=== PATIENT | male | born 1960 | race Caucasian/White ===

== ENCOUNTER → 2017-02-21 | Outpatient (CLI) | payer BC ==
[~2017-02-21] MED LIST: DYZ PO; LISI-725 PO
[2017-02-21 19:45] LABS: BLOOD UREA NITROGEN 20 mg/dl (7-18); BUN/CREATININE RATIO 16.4 (10-20); CALCIUM 8.9 mg/dl (8.5-10.1); CARBON DIOXIDE 27 mmol/L (21-32); CHLORIDE 107 mmol/L (98-107); GLUCOSE 116 mg/dl (70-99); POTASSIUM 3.6 mmol/L (3.5-5.1); SODIUM 142 mmol/L (136-145)
== END | disposition home or self-care (01) ==
LOC: C.LABSPEC 17:50
PROVIDERS: ATTEND Internal Medicine
DX: I10 Essential (primary) hypertension (principal)

== ENCOUNTER 2024-11-09 09:54 | Inpatient (IN) ==
[2024-11-09] MEDS: SODIUM CHLORIDE 0.9% 500 ML IV ONE (10:24)
--- NOTE | 2024-11-09 10:49 | XRay Report ---
XR chest 1V portable CLINICAL HISTORY: weakness COMPARISON STUDY: None FINDINGS: There is mild cardiomegaly without pulmonary vascular congestion. No effusion, consolidatio n, or pneumothorax. IMPRESSION: No acute findings. ACT 112: Negative or not required by law. Electronically signed by: Leonidas Gibson M.D. 11/09/2024 10:47 AM
[2024-11-09 11:02] LABS: Basophils # (auto) 0.04 K/uL (0.00-0.20); Basophils % (auto) 0.5 %; Eosinophils # (auto) 0.04 K/uL (0.00-0.50); Eosinophils % (auto) 0.5 %; Hematocrit (blood only) 29.2 % (42.0-52.0); Immature Granulocytes # (auto) 0.06 K/uL (0.01-0.20); Immature Granulocytes % (auto) 0.7 %; Lymphocytes % (auto) 11.7 %; Mean Corpuscular Hemoglobin 26.2 pg (25.0-34.0); Mean Corpuscular Hgb Conc 30.8 g/dL (32.0-36.0); Mean Corpuscular Volume 85.1 fL (80.0-100.0); Monocytes # (auto) 0.61 K/uL (0.11-0.59); Monocytes % (auto) 7.1 %; Neutrophils # (auto) 6.79 K/uL (1.40-6.50); Neutrophils % (auto) 79.5 %; Platelet Count 114 K/uL (130-400); RDW Coefficient of Variation 15.9 % (11.5-14.5); RDW Standard Deviation 48.7 fL (36.4-46.3); Red Blood Count 3.43 M/uL (4.70-6.10); White Blood Count 8.54 K/ul (4.8-10.8)
[2024-11-09] MEDS ORDERED: SODIUM CHLORIDE 0.9% 50 ML IV PRN ×3 (11:09→14:55)
[2024-11-09] MEDS ORDERED: SODIUM CHLORIDE 0.9% 100 ML IV PRN ×3 (11:09→14:55)
[2024-11-09 11:22] LABS: Albumin Globulin Ratio 1.2 (0.9-2); Albumin Level 3.2 gm/dl (3.4-5.0); BUN Creatinine Ratio 30.4 (10-20); Bilirubin,Total 1.7 mg/dl (0.2-1.0); Creatinine Clr Calc Pharmacy 67.6 ml/min; Globulin 2.6 gm/dl (2.5-4.0); Potassium 3.9 mmol/L (3.5-5.1); Total Protein 5.8 gm/dl (6.0-8.3)
[2024-11-09] MEDS: PANTOprazole 80 MG in DEXTROSE 5% 100 ML IV ONE (11:22)
[2024-11-09] MEDS: PANTOPRAZOLE BOLUS/DRIP IV STA (11:22)
[2024-11-09 11:36] LABS: Thyroid Stimulating Hormone 1.168 uIu/ml (0.300-4.500)
[2024-11-09] MEDS: PANTOprazole 40 MG in DEXTROSE 5% MINI-B 100 ML IV SCH (11:36)
[2024-11-09 11:37] LABS: Troponin I High Sensitivity 85.5 pg/ml (0-20)
[2024-11-09 11:54] LABS: Adenovirus PCR Not Detected (NotDetected); Bordetella parapertussis PCR Not Detected (NotDetected); Bordetella pertussis PCR Not Detected (NotDetected); Chlamydia pneumoniae PCR Not Detected (NotDetected); Coronavirus 229E PCR Not Detected (NotDetected); Coronavirus CoV-2 (COVID19)PCR Not Detected (NotDetected); Coronavirus HKU1 PCR Not Detected (NotDetected); Coronavirus NL63 PCR Not Detected (NotDetected); Coronavirus OC43PCR Not Detected (NotDetected); Human Metapneumovirus PCR Not Detected (NotDetected); Influenza A PCR Not Detected (NotDetected); Influenza B PCR Not Detected (NotDetected); Mycoplasma pneumoniae PCR Not Detected (NotDetected); Parainfluenza Virus 1 PCR Not Detected (NotDetected); Parainfluenza Virus 2 PCR Not Detected (NotDetected); Parainfluenza Virus 3 PCR Not Detected (NotDetected); Parainfluenza Virus 4 PCR Not Detected (NotDetected); Respiratory Syncytial VirusPCR Not Detected (NotDetected); Rhinovirus/Enterovirus PCR Not Detected (NotDetected)
--- NOTE | 2024-11-09 12:36 | History & Physical Report ---
Date of Service November 09, 2024 Assessment & Plan (1) Upper GI bleed: (2) Cirrhosis: (3) Diabetes mellitus type 2, controlled: Plan ADDENDUM: ADELINE SUBRAMANIAN called by nursing staff at 1410. However, there was no reported loss of pulse and no chest compressions were performed. Code was called as patient started vomiting blood at bedside, and per nursing staff he looked "blue in the face". Patient was assessed with Dr. Sheth and Dr. Frias (GI) present at bedside. Reglan 10 mg IV and repeat CBC ordered stat. PT/INR still pending. Blood transfusion has not started yet at this time. Disposition: ICU post EGD. Eduardo is a 64-year-old male with PMH of T2DM, HTN, ALICE, and gallstones. He presented on 11/09 after being referred from [facility] for dizziness and generalized fatigue. He reports that last night he developed a lower back pain, as well as dry cough, and feeling lightheaded/off-balance. He then woke up and his symptoms felt worse. He endorses intermittent melena over the past few days. No bright red blood in his stool. No recent NSAID use. On the morning of 11/09, he was walking from the parking deck to his work building, and became dyspneic on exertion, which was new for him. #Upper GI bleed BUN/creatinine >30 Hgb 9.0 on arrival 2 episodes of hypotension in the ED (88/55 at 10 AM, then 86/56 at 11 AM) despite fluid resuscitation Given concomitant symptoms, patient meets criteria for blood transfusion 2u pRBCs ordered; 1 unit ordered for transfusion, 1 unit held Trend H&H Protonix IV bolus + drip in the ED Continue with Gastroenterology consult appreciated Will plan to scope the patient later today on 11/09 Strict n.p.o. for now Rocephin 1000 mg IV x 1 Octreotide 50 mcg bolus + Infusion #Cirrhotic liver Noted on A/P CT on 09/11/2024 Concern for esophageal varices Rocephin octreotide (as above) Trend PT/INR Avoid NSAIDs #Hypotension Hold all antihypertensives for now #Elevated troponin Troponin elevated 85-->92 on arrival; trend q6h to peak Patient is chest pain-free at time of admission However, given concern for cardiac ischemia, transfusion threshold increased to Hgb <10.0 Continuous telemetry monitoring #T2DM Last A1c at 6.5% on 07/09/2024 Hold glipizide Hold insulin while patient is n.p.o.; plan to add on sliding scale as needed BSG q6h while NPO Adjust regimen as needed AM A1c Disposition: Admit to PCU telemetry Full code N.p.o. for now, plan to advance to clear liquids, then T2DM /low NA diet VTE PX: SCDs History of Present Illness Chief Complaint: Generalized fatigue, dizziness Primary Care Provider: Logan Reza DO Eduardo is a 64-year-old male with PMH of T2DM, HTN, ALICE, and gallstones. He presented on 11/09 after being referred from [facility] for dizziness and generalized fatigue. He reports that last night he developed a lower back pain, as well as dry cough, and feeling lightheaded/off-balance. He then woke up and his symptoms felt worse. He endorses intermittent melena over the past few days. No bright red blood in his stool. No recent NSAID use. On the morning of 11/09, he was walking from the parking deck to his work building, and became dyspneic on exertion, which was new for him. He has followed with Dr. Crabtree in the past, and reports his last colonoscopy was in 2022. Patient reports he is open to having an endoscopy or colonoscopy if needed. Patient took his regular morning medicine today; no recent change in medications. He takes aspirin daily for primary prevention; no history of heart stents. No prior history of MIs. No recent Pepto-Bismol use or iron supplementations. While he denies abdominal pain, he does endorse intermittent stomach "discomfort". No prior history of gastric ulcers, and he does not believe he has ever had an EGD. No prior history of blood transfusions. Patient denies smoking, but does endorse chewing tobacco. He endorses 1-2 alcoholic drinks per week. Patient's vitals are stable at time admission. ED course: Pantoprazole bolus/drip 2u pRBCs ordered ROS: Patient endorses intermittent melena over the past couple days, lightheadedness, SAMPSON, dry cough, new onset ROCHA today, back pain, hematuria (ongoing since June), and leg heaviness. Patient denies fever, chills, night-sweats, chest pain, chest palpitations, SOB at rest, hemoptysis, abdominal pain, N/V/D, or BRB in the stool. Allergies Allergy/AdvReac Type Severity Reaction Status Date / Time clarithromycin Allergy Mild NAUSEA Verified 11/09/24 08:52 VOMITING metformin AdvReac Mild Headache Verified 11/09/24 08:52 Home Medications Medication Instructions Recorded Confirmed Type aspirin 81 mg tablet,delayed 81 mg PO DAILY 06/17/22 11/09/24 History release (Adult Low Dose Aspirin) glipizide 5 mg tablet, extended 5 mg PO DAILY #90 tabs 11/21/23 11/09/24 Rx release 24 hr olmesartan 40 mg tablet 40 mg PO DAILY #90 tabs 11/21/23 11/09/24 Rx tadalafil 20 mg tablet 20 mg PO DAILY PRN sexual activity 11/21/23 11/09/24 Rx #20 tabs triamterene 37.5 1 cap PO DAILY 90 days #90 caps 05/21/24 11/09/24 Rx mg-hydrochlorothiazide 25 mg capsule metoprolol tartrate 25 mg tablet 25 mg PO BID #180 tabs 05/22/24 11/09/24 Rx tamsulosin 0.4 mg capsule 0.4 mg PO HS #90 caps 07/23/24 11/09/24 Rx Past Med/Surg History Problem List (Updated 11/09/24 @ 13:42 by Cristobal Hardy PA-C) Upper GI bleed Cirrhosis Hematuria Right hydrocele Right inguinal hernia Testicular swelling, right Gallstones URI (upper respiratory infection) Testicle trouble Nocturia BMI 39.0-39.9,adult (Chronic) Financial difficulty (Chronic) ALICE (obstructive sleep apnea) (Chronic) Erectile dysfunction (Chronic) Diabetes mellitus type 2, controlled (Chronic) HTN (hypertension) (Chronic) Medical History Normal colonoscopy (~2019) Surgical History H/O colonoscopy Family History Mother Hypertension Liver disease Diabetes Aunt Breast cancer Diabetes Father Prostate cancer Myocardial infarction Social History Smoking Status: Never smoker Tobacco Type: Smokeless Tobacco (Dip or Chew) Second Hand Exposure: No; Do You Dip or Chew Tobacco: Yes; Hx Alcohol Use: Yes Alcohol type: beer Alcohol Intake Frequency: 4 or More x per/Week Hx Substance Use: No marital status: Current Living Situation: Family Current Living Situation Comment: son lives with patient current occupational status: employed current occupation: [employer] How many Children do You have: 3 Feels Safe at Home: Yes Childhood Exposure to Second-Hand Smoke: Yes Diet: regular caffeine: Yes during the past year weight has: remained stable Dental Care, Regularly: Yes Physical Activity Frequency: Does not Exercise Seatbelt Use: always Sunscreen Use: Yes Assistive Devices: Glasses Review of Systems Review of Systems: See HPI above Physical Exam Physical Exam: General: no acute distress; non-toxic appearing; well-nourished; cooperative HEENT: normocephalic, atraumatic; no scleral icterus; PERRLA; vision and hearing grossly intact Neck: supple; no lymphadenopathy; trachea midline Skin: warm, dry without signs of tenting; no cyanosis; no rashes, bruising, lesions, or erythema noted CV: chest wall NTP; RRR; S1/S2 normal; no murmurs/rubs/gallops; pulses intact and symmetric at radial, DP, and PT Lungs: no acute respiratory distress; symmetrical chest wall expansion; clear breath sounds across all lung moon w/o adventitious sounds; no wheezing ABD: Soft, NTP; BS present; no rebound/guarding; no distention MSK: no tics or fasciculations; no edema noted in the LEs b/l, nonerythematous Neuro: A&Ox3; normal mood and affect; fluent speech; no focal deficits; sensation grossly intact in the LEs b/l Results & Data Results & Data Vital Signs (Past 12 Hours) Vital Signs Temp Pulse Pulse Resp BP BP Pulse Ox 11/09/24 12:21 94 H 23 99 11/09/24 12:15 138/63 11/09/24 12:15 91 H 22 99 11/09/24 12:12 93 H 20 99 11/09/24 12:03 91 H 22 99 11/09/24 12:00 131/69 11/09/24 12:00 94 H 20 131/69 99 11/09/24 11:54 96 H 23 99 11/09/24 11:51 89 16 97 11/09/24 11:46 94/50 L 11/09/24 11:45 91 H 20 11/09/24 11:36 91 H 17 98 11/09/24 11:24 93 H 18 121/59 L 98 11/09/24 11:19 99/59 L 11/09/24 11:15 88/49 L 11/09/24 11:06 86/56 L 11/09/24 11:06 89 17 11/09/24 10:54 85 21 100 11/09/24 10:48 88 18 100 11/09/24 10:45 117/61 11/09/24 10:36 97 11/09/24 10:30 119/56 L 11/09/24 10:26 117/59 L 11/09/24 10:22 82 22 99 11/09/24 10:21 107/61 11/09/24 10:21 107/61 11/09/24 10:21 84 20 99 11/09/24 10:20 85 11/09/24 10:12 86 19 110/59 L 95 11/09/24 10:11 110/59 L 11/09/24 10:10 88/55 L 11/09/24 09:56 36.8 C 91 H 20 101/67 94 O2 Del Method 11/09/24 12:21 11/09/24 12:15 11/09/24 12:15 11/09/24 12:12 11/09/24 12:03 11/09/24 12:00 11/09/24 12:00 Room Air 11/09/24 11:54 11/09/24 11:51 11/09/24 11:46 11/09/24 11:45 11/09/24 11:36 11/09/24 11:24 11/09/24 11:19 11/09/24 11:15 11/09/24 11:06 11/09/24 11:06 11/09/24 10:54 11/09/24 10:48 11/09/24 10:45 11/09/24 10:36 11/09/24 10:30 11/09/24 10:26 11/09/24 10:22 Room Air 11/09/24 10:21 11/09/24 10:21 11/09/24 10:21 11/09/24 10:20 11/09/24 10:12 Room Air 11/09/24 10:11 11/09/24 10:10 11/09/24 09:56 Room Air Laboratory Results Abnormal lab results 11/09/24 11/09/24 11/09/24 Range/Units 10:18 10:23 11:21 RBC 3.43 L (4.70-6.10) M/uL Hgb 9.0 L (14.0-18.0) g/dl Hct 29.2 L (42.0-52.0) % MCHC 30.8 L (32.0-36.0) g/dL RDW Std Deviation 48.7 H (36.4-46.3) fL RDW Coeff of Juli 15.9 H (11.5-14.5) % Plt Count 114 L (130-400) K/uL Neut # (Auto) 6.79 H (1.40-6.50) K/uL Lymph # (Auto) 1.00 L (1.20-3.40) K/uL [place] # (Auto) 0.61 H (0.11-0.59) K/uL BUN 42 H (6-23) mg/dl BUN/Creatinine Ratio 30.4 H (10-20) Glucose 290 H (70-99(Fasting)) mg/dl POC Glucose 292 H (70-99) mg/dl Calcium 8.0 L (8.6-10.3) mg/dl Total Bilirubin 1.7 H (0.2-1.0) mg/dl Troponin I High Sens 85.5 H* (0-20) pg/ml Total Protein 5.8 L (6.0-8.3) gm/dl Albumin 3.2 L (3.4-5.0) gm/dl Crossmatch See Detail Diagnostic Findings Chest X-Ray 11/09/24 10:22 XR chest 1V portable CLINICAL HISTORY: weakness COMPARISON STUDY: None FINDINGS: There is mild cardiomegaly without pulmonary vascular congestion. No effusion, consolidation, or pneumothorax. IMPRESSION: No acute findings. ACT 112: Negative or not required by law. Electronically signed by: Leonidas Gibson M.D. 11/09/2024 10:47 AM ECG Additional Comments: ECG revealed Code Status & VTE Plan Code Status Full code VTE Prophylaxis Plan VTE Prophylaxis will be ordered: Yes Supervising Physician Co-Signing Physician Notes Patient seen and examined, chart reviewed, case discussed with Cristobal Hardy PA-C and I agree with the assessment and plan as above except as otherwise noted Labs and images reviewed 64-year-old male with past medical history of type II DM, fatty liver disease, cirrhosis, ALICE presents to the ER with melena/upper GI bleed. BUN is elevated at 42. Hemoglobin 9. Patient was ordered 1 unit for transfusion for possible hemodynamic instability with tachycardia/hypotension on ER evaluation. Acute upper GI bleed in patient with history of liver cirrhosis: GIs been consulted. IV Rocephin has been ordered. Recommended addition of octreotide bolus and drip. Recommended continuing PPI bolus and drip. Patient is anticipated for EGD today, keep NPO. Will keep transfusion threshold of 8.0 due to elevated troponin. Patient is chest pain-free with a Trop 85/repeat 92. EKG normal sinus rhythm without acute territorial ischemia. Patient has history of chronic cirrhosis, currently compensated. T. bili 1.7, no transaminitis. Agree with above Addendum: Response called patient with acute hematemesis large amount of clot. Normotensive/tachycardic. 1 unit pending for transfusion. Reglan ordered. PPI/octreotide continued. Patient will be taken urgently to endoscopy lab with GI and postop will proceed to the ICU. On reassessment BP 122/58, remains tachycardic, alert, oriented. PG Care Time/CCT Total # of Minutes Spent Total Time Spent with Patient: Total time spent is greater than 50% in coordination of care (as documented) at patient's floor/unit and/or counseling patient: [place] [address] INT INP/OBS CARE 3/75MIN Patient Type Established Medical Decision Making High Complexity Diagnoses Upper GI bleed K92.2 Cirrhosis K74.60 Diabetes mellitus type 2, controlled E11.9
--- NOTE | 2024-11-09 12:58 | Gastrointestinal Consultation ---
Date of Consultation November 09, 2024 Assessment & Plan (1) Cirrhosis: 64 year old male w/ history of ALICE, T2DM, HTN, fatty liver, cirrhosis admitted through the ED w/ symptomatic anemia - GI was asked to evaluate for melena. HGB 9 from baseline 15, BUN 42, BP 135/72. [place] [address] and a soda around 0800. Anemia w/ report of melena in a patient w/ cirrhosis NPO EGD today Stat PT/INR Continue IV PPI bolus drip Give a dose of IV rocephin Start IV octreotide bolus and drip Trend H&H Monitor and document GI output Transfuse PRN per primary team He will need to re-establish with [facility] once discharged as his previous care provider at [facility] GI is no longer practicing in [facility] cirrhosis Management: MELD labs every 6 months ABD imaging w/ AFP every 6 months EGD every 1-2 years No ETOH No NSAIDs Avoid hepatotoxin Low NA diet, less than 2G daily Less than 2G acetaminophen containing products daily We appreciate assistance in the management of any serological abnormality and corrections to include: hemoglobin >7, INR <2, platelets >50,000, potassium levels >3.5 but <5.3, and sodium levels within 5 points of the reference range prior to endoscopic evaluation. Thank you for allowing us to participate in the care of this patient. Please call with any acute changes, questions or concerns. Please see addendum below with additional recommendation from my supervising physician. I spent a total of 60 minutes on the date of service in review of pat samantha's record, and previously obtained information in person and appropriate medical visit, discussion and education of plan, with patient and/or caregiver, placing orders for tests/referral/procedures as medically necessary and documentation of pertinent clinical information in patient's medical records for their visit today. Supervising Physician Co-Signing Physician Notes I personally saw and examined the patient. I have reviewed the chart and agree with the documentation provided by the CERTIFIED REGISTERED LOCKSMITH including discussion about the assessment, treatment and plan. Briefly, year old male w/ history of ALICE, T2DM, HTN, fatty liver, cirrhosis admitted through the ED w/ symptomatic anemia - GI was asked to evaluate for melena. Pt was seen, chart reviewed. Suggests intermittent dark stools for months. Over the last few days, has noted, dark tarry stools daily. No BRB. No abd pain. Maybe some reflux/regurg. No coffee ground emesis. Hgb is 9 and platelets are 114. Will plan on an EGD to rule out varices but suspect peptic ulcer disease DU versus gastritis esophagitis. Patient does take baby aspirin daily. NPO EGD. PPI IV bid for now. History of Present Illness Reason for Consultation: UGI bleed Requesting Physician: Dr. Cyrus Sheth Attending Physician: Dr. Cyrus Sheth History of Present Illness 64 year old male w/ history of ALICE, T2DM, HTN, fatty liver, cirrhosis admitted through the ED w/ symptomatic anemia - GI was asked to evaluate for melena. Pt was seen, chart reviewed. Suggests intermittent dark stools for months. Over the last few days, has noted, dark tarry stools daily. No BRB. No abd pain. Maybe some reflux/regurg. No coffee ground emesis or hematemesis. No fever, chills, CP, SOB. No NSAIDs No ETOH No tobacco No steroids CTAP 2023: Stable cirrhotic appearance of the liver and splenomegaly. Mild ascites. Last EGD: through [facility] Last colonoscopy: through [facility] w/ Dr. Paul Allergies Allergy/AdvReac Type Severity Reaction Status Date / Time clarithromycin Allergy Mild NAUSEA Verified 11/09/24 08:52 VOMITING metformin AdvReac Mild Headache Verified 11/09/24 08:52 Home Medications Medication Instructions Recorded Confirmed Type aspirin 81 mg tablet,delayed 81 mg PO DAILY 06/17/22 11/09/24 History release (Adult Low Dose Aspirin) glipizide 5 mg tablet, extended 5 mg PO DAILY #90 tabs 11/21/23 11/09/24 Rx release 24 hr olmesartan 40 mg tablet 40 mg PO DAILY #90 tabs 11/21/23 11/09/24 Rx tadalafil 20 mg tablet 20 mg PO DAILY PRN sexual activity 11/21/23 11/09/24 Rx #20 tabs triamterene 37.5 1 cap PO DAILY 90 days #90 caps 05/21/24 11/09/24 Rx mg-hydrochlorothiazide 25 mg capsule metoprolol tartrate 25 mg tablet 25 mg PO BID #180 tabs 05/22/24 11/09/24 Rx tamsulosin 0.4 mg capsule 0.4 mg PO HS #90 caps 07/23/24 11/09/24 Rx Patient History Medical History Normal colonoscopy (~2019) Surgical History H/O colonoscopy Family History Mother Hypertension Liver disease Diabetes Aunt Breast cancer Diabetes Father Prostate cancer Myocardial infarction Social History Smoking Status: Never smoker Tobacco Type: Smokeless Tobacco (Dip or Chew) Second Hand Exposure: No; Do You Dip or Chew Tobacco: Yes; Hx Alcohol Use: Yes Alcohol type: beer Alcohol Intake Frequency: 4 or More x per/Week Hx Substance Use: No marital status: Current Living Situation: Family Current Living Situation Comment: son lives with patient current occupational status: employed current occupation: [employer] How many Children do You have: 3 Feels Safe at Home: Yes Childhood Exposure to Second-Hand Smoke: Yes Diet: regular caffeine: Yes during the past year weight has: remained stable Dental Care, Regularly: Yes Physical Activity Frequency: Does not Exercise Seatbelt Use: always Sunscreen Use: Yes Assistive Devices: Glasses Review of Systems Review of Systems: All other findings negative except as noted in HPI. Physical Exam Constitutional: WD/WN, vitals as above Respiratory: normal respiratory effort Cardiovascular: Rate/Rhythm: + tachycardic Gastrointestinal (Abdomen): normal bowel sounds, soft, nontender, no hepatosplenomegaly Skin: no rashes, warm and dry Results & Data Vital Signs (Past 12 Hours) Vital Signs Temp Pulse Pulse Resp BP BP Pulse Ox 11/09/24 12:21 94 H 23 99 11/09/24 12:15 138/63 11/09/24 12:15 91 H 22 99 11/09/24 12:12 93 H 20 99 11/09/24 12:03 91 H 22 99 11/09/24 12:00 131/69 11/09/24 12:00 94 H 20 131/69 99 11/09/24 11:54 96 H 23 99 11/09/24 11:51 89 16 97 11/09/24 11:46 94/50 L 11/09/24 11:45 91 H 20 11/09/24 11:36 91 H 17 98 11/09/24 11:24 93 H 18 121/59 L 98 11/09/24 11:19 99/59 L 11/09/24 11:15 88/49 L 11/09/24 11:06 86/56 L 11/09/24 11:06 89 17 11/09/24 10:54 85 21 100 11/09/24 10:48 88 18 100 11/09/24 10:45 117/61 11/09/24 10:36 97 11/09/24 10:30 119/56 L 11/09/24 10:26 117/59 L 11/09/24 10:22 82 22 99 11/09/24 10:21 107/61 11/09/24 10:21 107/61 11/09/24 10:21 84 20 99 11/09/24 10:20 85 11/09/24 10:12 86 19 110/59 L 95 11/09/24 10:11 110/59 L 11/09/24 10:10 88/55 L 11/09/24 09:56 98.2 F 91 H 20 101/67 94 O2 Del Method 11/09/24 12:21 11/09/24 12:15 11/09/24 12:15 11/09/24 12:12 11/09/24 12:03 11/09/24 12:00 11/09/24 12:00 Room Air 11/09/24 11:54 11/09/24 11:51 11/09/24 11:46 11/09/24 11:45 11/09/24 11:36 11/09/24 11:24 11/09/24 11:19 11/09/24 11:15 11/09/24 11:06 11/09/24 11:06 11/09/24 10:54 11/09/24 10:48 11/09/24 10:45 11/09/24 10:36 11/09/24 10:30 11/09/24 10:26 11/09/24 10:22 Room Air 11/09/24 10:21 11/09/24 10:21 11/09/24 10:21 11/09/24 10:20 11/09/24 10:12 Room Air 11/09/24 10:11 11/09/24 10:10 11/09/24 09:56 Room Air Laboratory Results 11/09/24 11/09/24 11/09/24 Range/Units 12:34 11:21 10:23 WBC (4.8-10.8) K/ul RBC (4.70-6.10) M/uL Hgb (14.0-18.0) g/dl Hct (42.0-52.0) % MCV (80.0-100.0) fL MCH (25.0-34.0) pg MCHC (32.0-36.0) g/dL RDW Std Deviation (36.4-46.3) fL RDW Coeff of Jlui (11.5-14.5) % Plt Count (130-400) K/uL MPV (9.4-12.4) fL Immature Gran % (Auto) % Neut % (Auto) % Lymph % (Auto) % [place] % (Auto) % Eos % (Auto) % Baso % (Auto) % Neut # (Auto) (1.40-6.50) K/uL Lymph # (Auto) (1.20-3.40) K/uL [place] # (Auto) (0.11-0.59) K/uL Eos # (Auto) (0.00-0.50) K/uL Baso # (Auto) (0.00-0.20) K/uL Immature Gran # (Auto) (0.01-0.20) K/uL Sodium (136-145) mmol/L Potassium (3.5-5.1) mmol/L Chloride (98-107) mmol/L Carbon Dioxide (21-32) mmol/L Anion Gap (3-11) BUN (6-23) mg/dl Creatinine (0.6-1.4) mg/dl Est Cr Clr Drug Dosing ml/min eGFR BUN/Creatinine Ratio (10-20) Glucose (70-99(Fasting)) mg/dl POC Glucose 292 H (70-99) mg/dl Calcium (8.6-10.3) mg/dl Magnesium (1.7-2.4) mg/dl Total Bilirubin (0.2-1.0) mg/dl AST (13-39) U/L ALT (7-52) U/L Alkaline Phosphatase (34-104) U/L Troponin I High Sens (0-20) pg/ml Total Protein (6.0-8.3) gm/dl Albumin (3.4-5.0) gm/dl Globulin (2.5-4.0) gm/dl Albumin/Globulin Ratio (0.9-2) TSH (0.300-4.500) uIu/ml Adenovirus (PCR) (NotDetected) B. pertussis DNA (PCR) (NotDetected) B.parapertussis DNA PCR (NotDetected) C. pneumoniae DNA (PCR) (NotDetected) Coronavirus OC43 (PCR) (NotDetected) Coronavirus HKU1 (PCR) (NotDetected) Coronavirus 229E (PCR) (NotDetected) SARS-CoV-2 (PCR) (NotDetected) Coronavirus NL63 (PCR) (NotDetected) Human Metapneumovir PCR (NotDetected) Influenza Type A (PCR) (NotDetected) Influenza Type B (PCR) (NotDetected) M. pneumoniae (PCR) (NotDetected) Parainfluenza 1 (PCR) (NotDetected) Parainfluenza 2 (PCR) (NotDetected) Parainfluenza 3 (PCR) (NotDetected) Parainfluenza 4 (PCR) (NotDetected) RSV (PCR) (NotDetected) Entero/Rhino (PCR) (NotDetected) Blood Type A Positive Blood Type Recheck Pending Antibody Screen NEGATIVE Crossmatch See Detail 11/09/24 11/09/24 Range/Units 10:20 10:18 WBC 8.54 (4.8-10.8) K/ul RBC 3.43 L (4.70-6.10) M/uL Hgb 9.0 L (14.0-18.0) g/dl Hct 29.2 L (42.0-52.0) % MCV 85.1 (80.0-100.0) fL MCH 26.2 (25.0-34.0) pg MCHC 30.8 L (32.0-36.0) g/dL RDW Std Deviation 48.7 H (36.4-46.3) fL RDW Coeff of Juli 15.9 H (11.5-14.5) % Plt Count 114 L (130-400) K/uL MPV 11.0 (9.4-12.4) fL Immature Gran % (Auto) 0.7 % Neut % (Auto) 79.5 % Lymph % (Auto) 11.7 % [place] % (Auto) 7.1 % Eos % (Auto) 0.5 % Baso % (Auto) 0.5 % Neut # (Auto) 6.79 H (1.40-6.50) K/uL Lymph # (Auto) 1.00 L (1.20-3.40) K/uL [place] # (Auto) 0.61 H (0.11-0.59) K/uL Eos # (Auto) 0.04 (0.00-0.50) K/uL Baso # (Auto) 0.04 (0.00-0.20) K/uL Immature Gran # (Auto) 0.06 (0.01-0.20) K/uL Sodium 139 (136-145) mmol/L Potassium 3.9 (3.5-5.1) mmol/L Chloride 102 (98-107) mmol/L Carbon Dioxide 28 (21-32) mmol/L Anion Gap 9 (3-11) BUN 42 H (6-23) mg/dl Creatinine 1.38 (0.6-1.4) mg/dl Est Cr Clr Drug Dosing 67.6 ml/min eGFR 57.10 BUN/Creatinine Ratio 30.4 H (10-20) Glucose 290 H (70-99(Fasting)) mg/dl POC Glucose (70-99) mg/dl Calcium 8.0 L (8.6-10.3) mg/dl Magnesium 2.0 (1.7-2.4) mg/dl Total Bilirubin 1.7 H (0.2-1.0) mg/dl AST 31 (13-39) U/L ALT 29 (7-52) U/L Alkaline Phosphatase 57 (34-104) U/L Troponin I High Sens 85.5 H* (0-20) pg/ml Total Protein 5.8 L (6.0-8.3) gm/dl Albumin 3.2 L (3.4-5.0) gm/dl Globulin 2.6 (2.5-4.0) gm/dl Albumin/Globulin Ratio 1.2 (0.9-2) TSH 1.168 (0.300-4.500) uIu/ml Adenovirus (PCR) Not Detected (NotDetected) B. pertussis DNA (PCR) Not Detected (NotDetected) B.parapertussis DNA PCR Not Detected (NotDetected) C. pneumoniae DNA (PCR) Not Detected (NotDetected) Coronavirus OC43 (PCR) Not Detected (NotDetected) Coronavirus HKU1 (PCR) Not Detected (NotDetected) Coronavirus 229E (PCR) Not Detected (NotDetected) SARS-CoV-2 (PCR) Not Detected (NotDetected) Coronavirus NL63 (PCR) Not Detected (NotDetected) Human Metapneumovir PCR Not Detected (NotDetected) Influenza Type A (PCR) Not Detected (NotDetected) Influenza Type B (PCR) Not Detected (NotDetected) M. pneumoniae (PCR) Not Detected (NotDetected) Parainfluenza 1 (PCR) Not Detected (NotDetected) Parainfluenza 2 (PCR) Not Detected (NotDetected) Parainfluenza 3 (PCR) Not Detected (NotDetected) Parainfluenza 4 (PCR) Not Detected (NotDetected) RSV (PCR) Not Detected (NotDetected) Entero/Rhino (PCR) Not Detected (NotDetected) Blood Type Blood Type Recheck Antibody Screen Crossmatch PG Care Time/CCT Total # of Minutes Spent Total Time Spent with Patient: Total time spent is greater than 50% in coordination of care (as documented) at patient's floor/unit and/or counseling patient: Coding Level of Care Code 45262 IN/OBS CONSULT LVL 4,60M Diagnoses Cirrhosis K74.60
[2024-11-09] MEDS ORDERED: STAT IV/IM STA (13:09)
[2024-11-09] MEDS: cefTRIAXone SODIUM 1,000 MG/50 ML BAG IV STA (13:22)
[2024-11-09] MEDS: OCTREOTIDE ACETATE 50 MCG in SYRINGE 9.5 ML IV STA (13:57)
[2024-11-09] MEDS ORDERED: LIDOCAINE 2% 2 ML VIAL/AMP(20MG/ML) INFIL ONE (14:01)
[2024-11-09] MEDS ORDERED: PROPOFOL IV EMULSION 10 MG/ML 20 ML VIAL IV ONE (14:01)
[2024-11-09] MEDS ORDERED: ALBUMIN HUMAN 5% 12.5 GM/250 ML VIAL IV ONE (14:03)
[2024-11-09] MEDS ORDERED: SUCCINYLCHOLINE CHLORIDE 20 MG/ML 10 ML VIAL IV ONE (14:06)
--- NOTE | 2024-11-09 14:07 | Anesthesiology Consultation ---
Date of Service November 09, 2024 Assessment & Plan Chart Review Chart Review: Patient NOT seen in Pre Admission Testing Consults Requested medical & cardiac Pulmonary ASA ASA3E Proposed Anesthesia Anesthesia Type: General Anesthesia Line Insertion: Arterial line Risk / Benefits Reviewed With: PT / POA / Parent / Guardian, Accepts Plan and Informed Consent Obtained Additional Comments: EKG and labs reviewed. Patient with acute GI bleed vomiting blood will be transported from the ER directly to the OR as an emergent case. History Surgery Operation Date: 11/09/24 13:00 Proposed Procedures p Esophagogastroduodenoscopy - Fahad Frias MD Height/Weight Height: 5 ft 8 in Weight: 118.3 kg Allergies Allergy/AdvReac Type Severity Reaction Status Date / Time clarithromycin Allergy Mild NAUSEA Verified 11/09/24 08:52 VOMITING metformin AdvReac Mild Headache Verified 11/09/24 08:52 Medications Home Medications Medication Instructions Recorded Confirmed Last Taken aspirin 81 mg tablet,delayed 81 mg PO DAILY 06/17/22 11/09/24 11/09/24 release (Adult Low Dose Aspirin) glipizide 5 mg tablet, extended 5 mg PO DAILY #90 tabs 11/21/23 11/09/24 11/09/24 release 24 hr olmesartan 40 mg tablet 40 mg PO DAILY #90 tabs 11/21/23 11/09/24 11/09/24 tadalafil 20 mg tablet 20 mg PO DAILY PRN sexual activity 11/21/23 11/09/24 Unknown #20 tabs triamterene 37.5 1 cap PO DAILY 90 days #90 caps 05/21/24 11/09/24 11/09/24 mg-hydrochlorothiazide 25 mg capsule metoprolol tartrate 25 mg tablet 25 mg PO BID #180 tabs 05/22/24 11/09/24 11/09/24 tamsulosin 0.4 mg capsule 0.4 mg PO HS #90 caps 07/23/24 11/09/24 Unknown Active Medications Generic Name Dose Route Start Last Admin Trade Name Freq PRN Reason Stop Dose Admin Pantoprazole Sodium 40 mg/ 100 mls @ 20 mls/hr 11/09/24 11:30 11/09/24 11:36 Dextrose IV 12/09/24 11:29 8 mg/hr Q5H MASOOD 20 mls/hr Administration 8 MG/HR Octreotide Acetate 500 mcg/ 100.5 mls @ 10.05 mls/hr 11/09/24 13:30 11/09/24 14:08 Sodium Chloride IV 11/11/24 13:29 50 mcg/hr .Q10H MASOOD 10.1 mls/hr Administration 50 MCG/HR NPO Date Last Intake of Fluids: 11/09/24 Time Last Intake of Fluids: 08:00 Date Last Intake of Solids: 11/09/24 Time Last Intake of Solids: 06:00 Past Medical History Medical History Normal colonoscopy (~2019) Exercise / Class Metabolic Activity II 4-5 Yardwork/Stairs/Walk [place] Past Family History Family History Mother Hypertension Liver disease Diabetes Aunt Breast cancer Diabetes Father Prostate cancer Myocardial infarction Past Surgical History Surgical History H/O colonoscopy Past Anesthesia History No Hx of Anesthesia Complications and No Family Hx of Anesthesia Complications History of PONV No Hx of PONV and No Hx of Motion Sickness Social History Smoking Status: Never smoker Do You Dip or Chew Tobacco: Yes Hx Alcohol Use: Yes Alcohol type: beer Hx Substance Use: No Physical Exam Vital Signs Last Vital Signs Temp 36.8 C 11/09/24 09:56 Pulse 91 H 11/09/24 14:09 Resp 17 11/09/24 14:09 BP 122/58 L 11/09/24 14:18 Pulse Ox 98 11/09/24 14:18 O2 Del Method Room Air 11/09/24 13:35 Constitutional + acute distress and + morbidly obese ENMT Mouth: + small oral opening; no dentition abnormality Thyromental Distance: > or= 3.5 Finger Breadths Mallampati Class: III Neck normal visual inspection Respiratory normal respiratory effort; no respiratory distress Auscultation: lungs clear to auscultation bilaterally Cardiovascular Rate/Rhythm: regular rhythm and + tachycardic; + abnormal rate Heart Sounds: no murmur Musculoskeletal Spine: normal cervical ROM Psychiatric Orientation: alert and oriented x 3 Testing Laboratory Results 11/09/24 14:22 11/09/24 10:18 PT 13.0 Seconds (9.0-12.0) H 11/09/24 13:59 INR 1.2 (0.9-1.1) H 11/09/24 13:59 Blood Type A Positive 11/09/24 11:21 Antibody Screen NEGATIVE 11/09/24 11:21 11/09/24 10:23 POC Glucose 292 H Day of Procedure Evaluation. Date of Surgery November 09, 2024 Review / Plan Pt came to ER with history of melena dizziness, fatigue and dyspnea on exertion. He has a history that includes cirrhosis. Labs revealed anemia and elevated troponin. Height/Weight Height: 5 ft 8 in Weight: 118.3 kg Vital Signs Last Vital Signs Temp 36.8 C 11/09/24 09:56 Pulse 91 H 11/09/24 14:09 Resp 17 11/09/24 14:09 BP 122/58 L 11/09/24 14:18 Pulse Ox 98 11/09/24 14:18 O2 Del Method Room Air 11/09/24 13:35 Allergies Allergy/AdvReac Type Severity Reaction Status Date / Time clarithromycin Allergy Mild NAUSEA Verified 11/09/24 08:52 VOMITING metformin AdvReac Mild Headache Verified 11/09/24 08:52 Medications Home Medications Medication Instructions Recorded Confirmed Last Taken aspirin 81 mg tablet,delayed 81 mg PO DAILY 06/17/22 11/09/24 11/09/24 release (Adult Low Dose Aspirin) glipizide 5 mg tablet, extended 5 mg PO DAILY #90 tabs 11/21/23 11/09/24 11/09/24 release 24 hr olmesartan 40 mg tablet 40 mg PO DAILY #90 tabs 11/21/23 11/09/24 11/09/24 tadalafil 20 mg tablet 20 mg PO DAILY PRN sexual activity 11/21/23 11/09/24 Unknown #20 tabs triamterene 37.5 1 cap PO DAILY 90 days #90 caps 05/21/24 11/09/24 11/09/24 mg-hydrochlorothiazide 25 mg capsule metoprolol tartrate 25 mg tablet 25 mg PO BID #180 tabs 05/22/24 11/09/24 11/09/24 tamsulosin 0.4 mg capsule 0.4 mg PO HS #90 caps 07/23/24 11/09/24 Unknown Active Medications Generic Name Dose Route Start Last Admin Trade Name Freq PRN Reason Stop Dose Admin Pantoprazole Sodium 40 mg/ 100 mls @ 20 mls/hr 11/09/24 11:30 11/09/24 11:36 Dextrose IV 12/09/24 11:29 8 mg/hr Q5H MASOOD 20 mls/hr Administration 8 MG/HR Octreotide Acetate 500 mcg/ 100.5 mls @ 10.05 mls/hr 11/09/24 13:30 11/09/24 14:08 Sodium Chloride IV 11/11/24 13:29 50 mcg/hr .Q10H MASOOD 10.1 mls/hr Administration 50 MCG/HR Past Anesthesia History No Hx of Anesthesia Complications and No Family Hx of Anesthesia Complications History of PONV No Hx of PONV and No Hx of Motion Sickness NPO Date Last Intake of Fluids: 11/09/24 Time Last Intake of Fluids: 08:00 Date Last Intake of Solids: 11/09/24 Time Last Intake of Solids: 06:00 HCG & FBG Results 11/09/24 10:23 POC Glucose 292 H Home Medications Home Medications Medication Instructions Recorded Confirmed Last Taken aspirin 81 mg tablet,delayed 81 mg PO DAILY 06/17/22 11/09/24 11/09/24 release (Adult Low Dose Aspirin) glipizide 5 mg tablet, extended 5 mg PO DAILY #90 tabs 11/21/23 11/09/24 11/09/24 release 24 hr olmesartan 40 mg tablet 40 mg PO DAILY #90 tabs 11/21/23 11/09/24 11/09/24 tadalafil 20 mg tablet 20 mg PO DAILY PRN sexual activity 11/21/23 11/09/24 Unknown #20 tabs triamterene 37.5 1 cap PO DAILY 90 days #90 caps 05/21/24 11/09/24 11/09/24 mg-hydrochlorothiazide 25 mg capsule metoprolol tartrate 25 mg tablet 25 mg PO BID #180 tabs 05/22/24 11/09/24 11/09/24 tamsulosin 0.4 mg capsule 0.4 mg PO HS #90 caps 07/23/24 11/09/24 Unknown Active Medications Generic Name Dose Route Start Last Admin Trade Name Freq PRN Reason Stop Dose Admin Pantoprazole Sodium 40 mg/ 100 mls @ 20 mls/hr 11/09/24 11:30 11/09/24 11:36 Dextrose IV 12/09/24 11:29 8 mg/hr Q5H MASOOD 20 mls/hr Administration 8 MG/HR Octreotide Acetate 500 mcg/ 100.5 mls @ 10.05 mls/hr 11/09/24 13:30 11/09/24 14:08 Sodium Chloride IV 11/11/24 13:29 50 mcg/hr .Q10H MASOOD 10.1 mls/hr Administration 50 MCG/HR Exercise / Class Metabolic Activity Metabolic Activity: II 4-5 Yardwork/Stairs/Walk up [place] Physical Exam Constitutional: + morbidly obese and + acute distress Mouth: + small oral opening; no dentition abnormality Thyromental Distance: > or= 3.5 Finger Breadths Mallampati Class: III Neck: + visual inspection normal Respiratory: + respiratory effort normal and + clear to auscultation bilaterally; no respiratory distress Cardiovascular: + regular rhythm and + tachycardic; no regular rate and no murmur Musculoskeletal: no limited cervical ROM Psychiatric: + alert and + oriented x 3 ASA ASA3E Proposed Anesthesia Proposed Anesthesia: General Anesthesia Line Insertion: Arterial line Risk / Benefits Reviewed With: PT / POA / Parent / Guardian, Accepts Plan and Informed Consent Obtained Additional Comments: EKG and labs reviewed. Patient is very high risk due to his history of diabetes and his current GI bleed leading to anemia and some cardiac ischemia given his elevated troponin level. His immediate problem of an acute GI bleed requires that we emergently transport him directly to the OR for therapeutic intervention. We will plan for a rapid sequence induction of general anesthesia with use of endotracheal intubation to minimize aspiration risk. We plan for an immediate blood transfusion and invasive monitoring.
[2024-11-09] MEDS: OCTREOTIDE ACETATE 500 MCG in SODIUM CHLORIDE 0.9% 100 ML IV SCH (14:08)
[2024-11-09] MEDS: METOCLOPRAMIDE HCL INJ 5 MG/ML 2 ML VIAL IV STA (14:21)
[2024-11-09] MEDS: METOCLOPRAMIDE HCL INJ 5 MG/ML 2 ML VIAL ONE (14:22)
[2024-11-09] MEDS ORDERED: NOREPINEPHRINE BITARTRATE 1 MG/ML 4 ML VIAL IV ONE (14:27)
[2024-11-09 14:39] LABS: Hematocrit (blood only) 27.3 % (42.0-52.0); Hemoglobin 8.4 g/dl (14.0-18.0); Mean Corpuscular Hemoglobin 26.2 pg (25.0-34.0); Mean Corpuscular Hgb Conc 30.8 g/dL (32.0-36.0); Mean Platelet Volume 10.8 fL (9.4-12.4); Platelet Count 145 K/uL (130-400); RDW Coefficient of Variation 15.9 % (11.5-14.5); Red Blood Count 3.21 M/uL (4.70-6.10); White Blood Count 12.62 K/ul (4.8-10.8)
--- NOTE | 2024-11-09 14:43 | Electrocardiogram Report ---
Test Reason : Blood Pressure : */* mmHG Vent. Rate : 85 BPM Atrial Rate : 85 BPM P-R Int : 174 ms QRS Dur : 128 ms QT Int : 402 ms P-R-T Axes : 45 -53 69 degrees QTcB Int : 478 ms Normal sinus rhythm Left axis deviation Left ventricular hypertrophy with QRS widening and repolarization abnormality ( R in aVL ) Abnormal ECG When compared with ECG of 06-Jan-2010 16:13, No significant change Confirmed by Milton Brown ([id number]) on 11/09/2024 2:43:08 PM Referred By: REFERRED SELF Confirmed By: Milton Brown
--- NOTE | 2024-11-09 14:47 | Critical Care Consultation ---
Date of Consultation November 09, 2024 Assessment & Plan (1) Upper GI bleed: (2) Cirrhosis: (3) Right inguinal hernia: (4) ALICE (obstructive sleep apnea): (5) Diabetes mellitus type 2, controlled: (6) Shock circulatory: (7) Elevated troponin: (8) Sepsis: (9) Aspiration pneumonia: (10) Esophageal varices determined by endoscopy: (11) Duodenal ulcer: Plan Reason Critically Ill: 64-year-old male present to the hospital for dizziness and fatigue Past medical history: ALICE, hypertension, diabetes type 2 In the ED patient was found to have melena, low blood pressure responded to fluid. Neuro - [facility] ICU: Negative Propofol and fentanyl for sedation and anesthesia respectively Cardiac - --Hypotension in the OR Requiring pushes of vasopressors --Elevated troponin Likely type II PA Continue to trend EKG 11/09/2024, 10:11 AM: Sinus tachycardia, left axis deviation, LVH, no ST-T wave changes appreciated Respiratory - -- Intubated for OR Chest x-ray 11/09/2024 did not show any pulmonary abnormalities Respiratory BioFire negative for everything on 11/09/2024 --Mild ALICE Polysomnography 11/11/2022: AHI 8.2 GI - -- Acute upper GI bleeding with history of liver cirrhosis Elevated BUN On octreotide and pantoprazole drip GI on board -- Mild elevation of bilirubin Normal AST and ALT RENAL/LYTES - -- CM Monitor BUN/creatinine Avoid nephrotoxic medications Strict ins and outs ENDO - -- Diabetes type 2 ICU hyperglycemia protocol HEME - -- Acute blood loss anemia Likely upper GI bleed Got units of PRBC in the OR Monitor H&H, transfuse for hemoglobin less than 8 ID - --Aspiration pneumonia Appreciated on the repeat chest x-ray after intubation For variceal bleed usually Rocephin is recommended which will be given to the patient, will add Flagyl to the regimen --Prophylaxis VTE: IPC GI: Pantoprazole Lines: Peripheral Diet: N.p.o. Plan: ABG 7./ on 60%, PEEP of 5, tidal volume 415, respirate of 18. I increased her respiratory 22 and increase the tidal volume to 450 Strict in and out Continue with octreotide for minimum of 48 hours Pantoprazole IV twice daily Monitor H&H, transfuse if hemoglobin less than 8 as per GI recommendations Doppler of the portal veins to make sure there is no portal vein thrombosis Repeat chest x-ray today to look at the ET tube placement Add Flagyl to Rocephin to cover for anaerobes for aspiration pneumonia I have personally spent 62 minutes of critical care time in the direct management of this patient. This is a life/limb threatening event. This includes time spent evaluating patient, direct bedside care, chart review, placing orders, interpretation of diagnostic studies, discussion with consultants, patient, and family members, as well as other required patient management activities. This time is exclusive of all separately billable procedures, and teaching time and separate from and in addition to any other critical care service time. History of Present Illness History of Present Illness 64-year-old male present to the hospital for dizziness and fatigue Past medical history: ALICE, hypertension, diabetes type 2 In the ED patient was found to have melena, low blood pressure responded to fluid. CODE BLUE was called in the ED for hematemesis. No CPR was performed. Patient taken to the OR for EGD and brought to the ICU intubated for further care Signout was given by Dr. Frias in person as well as nurse electric welder As per GI, patient had small duodenal ulcer, did have significant varices esophageal which were banded at 3 locations. At the time of examination patient was on propofol He was breathing with the vent He was having active melena. Systolic blood pressure was in the 130s with MAP in the mid 80s. He was tachycardic. Abdomen was distended. He was not grimacing. Tmax 38 Social history: Lifetime non-smoker, chews tobacco. Drinks minimal for beer on a daily basis Allergies Allergy/AdvReac Type Severity Reaction Status Date / Time clarithromycin Allergy Mild NAUSEA Verified 11/09/24 08:52 VOMITING metformin AdvReac Mild Headache Verified 11/09/24 08:52 Home Medications Medication Instructions Recorded Confirmed Type aspirin 81 mg tablet,delayed 81 mg PO DAILY 06/17/22 11/09/24 History release (Adult Low Dose Aspirin) glipizide 5 mg tablet, extended 5 mg PO DAILY #90 tabs 11/21/23 11/09/24 Rx release 24 hr olmesartan 40 mg tablet 40 mg PO DAILY #90 tabs 11/21/23 11/09/24 Rx tadalafil 20 mg tablet 20 mg PO DAILY PRN sexual activity 11/21/23 11/09/24 Rx #20 tabs triamterene 37.5 1 cap PO DAILY 90 days #90 caps 05/21/24 11/09/24 Rx mg-hydrochlorothiazide 25 mg capsule metoprolol tartrate 25 mg tablet 25 mg PO BID #180 tabs 05/22/24 11/09/24 Rx tamsulosin 0.4 mg capsule 0.4 mg PO HS #90 caps 07/23/24 11/09/24 Rx Patient History Medical History Normal colonoscopy (~2019) Surgical History H/O colonoscopy Family History Mother Hypertension Liver disease Diabetes Aunt Breast cancer Diabetes Father Prostate cancer Myocardial infarction Social History Smoking Status: Never smoker Tobacco Type: Smokeless Tobacco (Dip or Chew) Second Hand Exposure: No; Do You Dip or Chew Tobacco: Yes; Hx Alcohol Use: Yes Alcohol type: beer Alcohol Intake Frequency: 4 or More x per/Week Hx Substance Use: No marital status: Current Living Situation: Family Current Living Situation Comment: son lives with patient current occupational status: employed current occupation: [employer] How many Children do You have: 3 Feels Safe at Home: Yes Childhood Exposure to Second-Hand Smoke: Yes Diet: regular caffeine: Yes during the past year weight has: remained stable Dental Care, Regularly: Yes Physical Activity Frequency: Does not Exercise Seatbelt Use: always Sunscreen Use: Yes Assistive Devices: Glasses Review of Systems 2 Review of Systems: All systems reviewed & are unremarkable except as noted in HPI & below Physical Exam 2 Physical Exam: Constitutional: No acute distress HEENT: PERRLA Respiratory system: Decreased air entry bilaterally, no wheeze, rhonchi, mild crackles bilateral lower lobes CVS: S1-S2 positive, no murmurs or gallops Abdomen: Soft, nontender, nondistended, positive bowel sounds x4, obese Extremities: +2 pulses bilaterally radialis/ dorsalis pedis, no cyanosis, +1 pitting edema bilateral lower extremity Neuro: Sedated and paralyzed Psych: Unable to assess G/U: Positive Ross Skin: no rashes, warm and dry Lymphatic: no cervical or axillary lymphadenopathy Results & Data Results & Data Vital Signs (Past 12 Hours) Vital Signs Temp Pulse Pulse Resp BP BP Pulse Ox 11/09/24 14:18 122/58 L 98 11/09/24 14:09 91 H 17 11/09/24 14:06 94 H 21 11/09/24 13:54 94 H 22 11/09/24 13:45 107/61 11/09/24 13:35 92 H 20 112/54 L 93 11/09/24 13:30 87/61 L 11/09/24 13:15 89 28 H 11/09/24 13:12 95 H 23 11/09/24 13:06 92 H 16 11/09/24 13:00 116/55 L 11/09/24 12:45 93 H 20 11/09/24 12:42 92 H 22 11/09/24 12:31 135/72 11/09/24 12:30 91 H 23 99 11/09/24 12:21 94 H 23 99 11/09/24 12:15 138/63 11/09/24 12:15 91 H 22 99 11/09/24 12:12 93 H 20 99 11/09/24 12:03 91 H 22 99 11/09/24 12:00 131/69 11/09/24 12:00 94 H 20 131/69 99 11/09/24 11:54 96 H 23 99 11/09/24 11:51 89 16 97 11/09/24 11:46 94/50 L 11/09/24 11:45 91 H 20 11/09/24 11:36 91 H 17 98 11/09/24 11:24 93 H 18 121/59 L 98 11/09/24 11:19 99/59 L 11/09/24 11:15 88/49 L 11/09/24 11:06 86/56 L 11/09/24 11:06 89 17 11/09/24 10:54 85 21 100 11/09/24 10:48 88 18 100 11/09/24 10:45 117/61 11/09/24 10:36 97 11/09/24 10:30 119/56 L 11/09/24 10:26 117/59 L 11/09/24 10:22 82 22 99 11/09/24 10:21 107/61 11/09/24 10:21 107/61 11/09/24 10:21 84 20 99 11/09/24 10:20 85 11/09/24 10:12 86 19 110/59 L 95 11/09/24 10:11 110/59 L 11/09/24 10:10 88/55 L 11/09/24 09:56 36.8 C 91 H 20 101/67 94 O2 Del Method 11/09/24 14:18 11/09/24 14:09 11/09/24 14:06 11/09/24 13:54 11/09/24 13:45 11/09/24 13:35 Room Air 11/09/24 13:30 11/09/24 13:15 11/09/24 13:12 11/09/24 13:06 11/09/24 13:00 11/09/24 12:45 11/09/24 12:42 11/09/24 12:31 11/09/24 12:30 11/09/24 12:21 11/09/24 12:15 11/09/24 12:15 11/09/24 12:12 11/09/24 12:03 11/09/24 12:00 11/09/24 12:00 Room Air 11/09/24 11:54 11/09/24 11:51 11/09/24 11:46 11/09/24 11:45 11/09/24 11:36 11/09/24 11:24 11/09/24 11:19 11/09/24 11:15 11/09/24 11:06 11/09/24 11:06 11/09/24 10:54 11/09/24 10:48 11/09/24 10:45 11/09/24 10:36 11/09/24 10:30 11/09/24 10:26 11/09/24 10:22 Room Air 11/09/24 10:21 11/09/24 10:21 11/09/24 10:21 11/09/24 10:20 11/09/24 10:12 Room Air 11/09/24 10:11 11/09/24 10:10 11/09/24 09:56 Room Air Laboratory Results 11/09/24 10:18 Coding Level of Care Code 74817 CRITICAL CARE 1ST 30-74M Diagnoses Upper GI bleed K92.2 Cirrhosis K74.60 Right inguinal hernia K40.90 ALICE (obstructive sleep apnea) G47.33 Diabetes mellitus type 2, controlled E11.9 Shock circulatory R57.9 Elevated troponin R79.89 Sepsis A41.9 Aspiration pneumonia J69.0 Esophageal varices determined by endoscopy I85.00 Duodenal ulcer K26.9
[2024-11-09] MEDS ORDERED: ONDANSETRON INJ 2 MG/ML 2 ML VIAL ONE (14:49)
[2024-11-09 14:56] LABS: INR 1.2 (0.9-1.1)
[2024-11-09] MEDS ORDERED: fentaNYL citrate PF 100 MCG/2 ML VIAL ONE (15:11)
[2024-11-09] MEDS ORDERED: ROCURONIUM BROMIDE 10 MG/ML 5 ML VIAL IV ONE (15:14)
[2024-11-09] MEDS ORDERED: VASOPRESSIN 20 UNIT/ML VIAL ONE (15:18)
--- NOTE | 2024-11-09 15:25 | Communication Note ---
Date of Service: November 09, 2024 Status post EGD emergently in the operating room. Patient was intubated and sedated. EGD showed: fresh blood in the esophagus with 3 columns of varices noted 2 columns of grade 3 and 1 column of grade 1 -2. There was a red navin sign present. Using a 7 shooter, 3 bands were deployed with good hemostasis of the varices Old blood was noted in the stomach. This had to be irrigated and suctioned out. Most of the stomach just showed portal hypertensive gastropathy without any ulceration or active bleeding. Unfortunately due to the number of clots, not able to visualize the fundus completely. Duodenum showed a small clean-based ulcer in D1-D2 junction. This was not the source of bleeding. Plan keep him intubated overnight on octreotide. Can use PPI IV twice daily once lines are addressed. CBC 3 times daily to 4 times daily to keep a hemoglobin of 8. He needs an ultrasound to evaluate for portal vein thrombosis and HCC, send off an alpha-fetoprotein. GI will continue to follow. Rodriguez
[2024-11-09] MEDS ORDERED: SODIUM BICARB 8.4% INJ 50 MEQ/50 ML SYR IV ONE (15:26)
--- NOTE | 2024-11-09 15:32 | GI REPORT ---
[facility] Patient: REBECA IRWIN : 1960 Sex at : Male Age: 64 Years Procedure: Upper GI endoscopy Date: 11/09/2024 Attending Physician: Fahad Frias MD Referring MD: Referred Self Indications: - Melena - Acute post hemorrhagic anemia - Hematemesis Medications: - Monitored Anesthesia Care Complications: - No immediate complications. Estimated Blood Loss: - Over 300 cc vomited prior and 30 cc of old blood present. Procedure: - Prior to the procedure, a History and Physical was performed, and patient medications and allergies were reviewed. The patient's tolerance of previous anesthesia was also reviewed. The risks and benefits of the procedure and the sedation options and risks were discussed with the patient. All questions were answered, and informed consent was obtained. Prior Anticoagulants: The patient has taken no anticoagulant or antiplatelet agents. ASA Grade Assessment: III - A patient with severe systemic disease. After reviewing the risks and benefits, the patient was deemed in satisfactory condition to undergo the procedure. - The egd scope was introduced through the mouth and advanced to the third part of the duodenum. - The upper GI endoscopy was accomplished without difficulty. - The patient tolerated the procedure well. Findings: - Three columns of grade III varices with stigmata of recent bleeding were found in the lower third of the esophagus. They were large in size. Red navin signs were present. Three bands were successfully placed with complete eradication, resulting in deflation of varices. There was no bleeding during nor at the end of the procedure. - Hematin (altered blood/lybmna-wqrcrc-pkfv material) was found in the gastric body. Lavage of the area was performed using a large amount, resulting in clearance with adequate visualization. Unable to visualize fundus as loads of clots there. - One non-bleeding superficial duodenal ulcer was found in the first portion of the duodenum. The lesion was 4 mm in largest dimension. - Moderate portal hypertensive gastropathy was found in the entire examined stomach. Impression: - Grade III esophageal varices with stigmata of recent bleeding. Completely eradicated. Banded. - Hematin (altered blood/sxpaba-fvzhea-mauz material) in the gastric body. - Unable to visualize fundus as loads of clots there. - Non-bleeding duodenal ulcer. - Portal hypertensive gastropathy. - No specimens collected. Recommendation: - Discharge patient to home (ambulatory). - Resume previous diet. - Return to primary care physician as previously scheduled. - Patient has a contact number available for emergencies. The signs and symptoms of potential delayed complications were discussed with the patient. Return to normal activities tomorrow. Written discharge instructions were provided to the patient. - Continue present medications. - Plan keep him intubated overnight on octreotide, ceftriaxone daily; can use PPI IV twice daily once lines are addressed. CBC 3 times daily to 4 times daily to keep a hemoglobin of 8. He needs an ultrasound to evaluate for portal vein thrombosis and HCC, send off an alpha-fetoprotein. GI will continue to follow. Procedure Code(s): - 63557, Esophagogastroduodenoscopy, flexible, transoral; with band ligation of esophageal/gastric varices Diagnosis Code(s): - K92.1, Melena (includes Hematochezia) - K92.0, Hematemesis - D62, Acute posthemorrhagic anemia - I85.01, Esophageal varices with bleeding - K92.2, Gastrointestinal hemorrhage, unspecified - K26.9, Duodenal ulcer, unspecified as acute or chronic, without hemorrhage or perforation - K76.6, Portal hypertension - K31.89, Other diseases of stomach and duodenum CPT(R) - 2023 copyright [employer]. All Rights Reserved. The CPT codes, CCI edits and ICD codes generated are intended as suggestions and were generated based on input data. These codes are preliminary and upon printer repair technician review may be revised to meet current compliance and payer requirements. The provider is responsible for the final determination of appropriate codes, and modifiers. Fahad Frias MD This document has been electronically signed. Note Initiated:11/09/2024 Note Completed:11/09/2024 3:31 PM \\[email or web address]\Central\InterfaceData\Data\Provation\Results\LIVE\[id number]
[2024-11-09 15:49] LABS: iSTAT Creatinine 1.3 mg/dl (0.6-1.3); iSTAT Hemoglobin 8.5 g/dl (14.0-18.0); iSTAT Ionized Calcium 1.06 mmol/l (1.12-1.32); iSTAT Potassium 5.1 mmol/L (3.3-5.0)
[2024-11-09] MEDS: fentaNYL citrate 2,500 MCG/250 ML BAG IV SCH (15:50)
[2024-11-09] MEDS: NOREPINEPHRINE/D5W 4 MG/250 ML PLCT IV SCH (15:50)
[2024-11-09] MEDS: propofoL 1,000 MG/100 ML VIAL IV SCH (15:50)
--- NOTE | 2024-11-09 15:58 | Emergency Department Note ---
Impression & Plan UGIB (upper gastrointestinal bleed), ABLA (acute blood loss anemia), Non-ST elevation AR (NSTEMI) ED Provider Note CHIEF COMPLAINT: Weakness, pale HISTORY OF PRESENT ILLNESS: This 64-year-old male patient past medical history of obstructive sleep apnea, type 2 diabetes, hypertension, cirrhosis of the liver, presents to the emergency department with complaints of weakness and fatigue worsening over the last 24 hours. Patient states he just does not feel well. He went to the urgent care clinic and was sent to the emergency department. Patient denies chest pain and shortness of breath. He is nauseated but has not vomited. On further questioning, the patient has had dark stools for the last 2 days. He denies taking any ibuprofen or Aleve. He does take a baby aspirin daily. REVIEW OF SYSTEMS: A review of systems was performed with positives and pertinent negatives listed in the history of present illness. 10 systems were reviewed and are otherwise negative. ALLERGIES: see below MEDICATIONS: see below PMH: see below SOCIAL HISTORY: see below DDx: GI bleed, peptic ulcer, viral syndrome such as COVID or influenza, acute coronary syndrome, dehydration, acute kidney injury, infectious etiology among others. PHYSICAL EXAM: Vital signs reviewed. General: Somewhat ill-appearing 64-year-old male, in no significant distress. HEENT: No scleral icterus, PERRLA, neck supple. Pale conjunctiva. Cardiovascular: Regular rate and rhythm, no extra sounds. Pulmonary: Clear to auscultation bilaterally, normal work of breathing. Abdomen: Soft, nontender, nondistended, positive bowel sounds. Musculoskeletal: Atraumatic, no peripheral edema. Neurologic: Patient awake alert and oriented x 3, speech is clear GI: Guaiac positive melanotic stool, no bright red blood. Normal mucosa. Skin: Warm, dry, no rash EMERGENCY DEPARTMENT COURSE/MDM: This patient was evaluated and appeared to be in no distress. IV access was obtained and laboratory work was drawn. IV fluids were initiated due to the patient's transient hypotension. Stool is guaiac positive. Laboratory work reveals a hemoglobin of 9.0 From baseline of 15.4 in 2022. Patient's HS troponin is noted to be elevated at 85.5. patient had another episode of hypotension. He was typed and crossed for 2 units of PRBCs, Protonix bolus and drip was ordered. 1 unit of PRBCs was ordered to be transfused. Patient's records indicate cirrhosis of the liver. GI Dr. Frias was informed of the case. Dr. Sotelo of the hospitalist service has agreed to evaluate the pt for admission and further management. Prior to departure from the emergency department, a CODE BLUE was called to the patient's room. Patient had a large amount of dark tarry emesis. He was on his way to the endoscopy suite for definitive care. MONITORING: An order for cardiac monitoring was placed and the patient is noted to be in a normal sinus rhythm at 95 beats per minute. RADIOLOGY: Chest x-ray to my interpretation reveals no evidence of focal lung consolidation or failure. EKG: To my interpretation reveals normal sinus rhythm 85 bpm, left axis deviation, LVH. QTc of 478. No PVC, no PAC. DISPOSITION: Admission I have personally spent greater than 60 minutes of critical care time in the direct management of this patient. This includes bedside care, interpretation of diagnostic studies, and testing, discussion with consultants, patient, and family members, and other required patient management activities. This 60 minutes is in excess of all separately billable procedures. Past Med/Surg History Problem List (Updated 11/10/24 @ 14:45 by Leidy Reaves MD) Non-ST elevation AR (NSTEMI) (Acute) ABLA (acute blood loss anemia) (Acute) UGIB (upper gastrointestinal bleed) (Acute) Duodenal ulcer Esophageal varices determined by endoscopy Aspiration pneumonia Sepsis Elevated troponin Shock circulatory Upper GI bleed Cirrhosis Hematuria Right hydrocele Right inguinal hernia Testicular swelling, right Gallstones URI (upper respiratory infection) Testicle trouble Nocturia BMI 39.0-39.9,adult (Chronic) Financial difficulty (Chronic) ALICE (obstructive sleep apnea) (Chronic) Erectile dysfunction (Chronic) Diabetes mellitus type 2, controlled (Chronic) HTN (hypertension) (Chronic) Medical History Normal colonoscopy (~2019) Surgical History H/O colonoscopy Family History Mother Hypertension Liver disease Diabetes Aunt Breast cancer Diabetes Father Prostate cancer Myocardial infarction Social History Smoking Status: Never smoker Tobacco Type: Smokeless Tobacco (Dip or Chew) Second Hand Exposure: No; Do You Dip or Chew Tobacco: Yes; Tobacco Cessation Education Requested by Patient: No Hx Alcohol Use: Yes Alcohol type: beer Alcohol Intake Frequency: 4 or More x per/Week Hx Substance Use: No Preferred Language: Arabic Communication Ability Comment: Patient is intubated and sedated Book Canvasser Required: No Beliefs That Will Affect Care: None marital status: Current Living Situation: Family Current Living Situation Comment: son lives with patient current occupational status: employed current occupation: [employer] How many Children do You have: 3 Other Information That Helps Us Care for You: No Feels Safe at Home: Yes Safety Concerns: Feels Safe At This Time Childhood Exposure to Second-Hand Smoke: Yes Diet: regular caffeine: Yes during the past year weight has: remained stable Dental Care, Regularly: Yes Physical Activity Frequency: Does not Exercise Seatbelt Use: always Sunscreen Use: Yes Assistive Devices: None Allergies Allergies Allergy/AdvReac Type Severity Reaction Status Date / Time clarithromycin Allergy Mild NAUSEA Verified 11/09/24 08:52 VOMITING metformin AdvReac Mild Headache Verified 11/09/24 08:52 Home Meds Home Medications Medication Instructions Recorded Confirmed aspirin 81 mg tablet,delayed 81 mg PO DAILY 06/17/22 11/09/24 release (Adult Low Dose Aspirin) Previous Rx's Medication Instructions Recorded glipizide 5 mg tablet, extended 5 mg PO DAILY #90 tabs 11/21/23 release 24 hr olmesartan 40 mg tablet 40 mg PO DAILY #90 tabs 11/21/23 tadalafil 20 mg tablet 20 mg PO DAILY PRN sexual activity 11/21/23 #20 tabs triamterene 37.5 1 cap PO DAILY 90 days #90 caps 05/21/24 mg-hydrochlorothiazide 25 mg capsule metoprolol tartrate 25 mg tablet 25 mg PO BID #180 tabs 05/22/24 tamsulosin 0.4 mg capsule 0.4 mg PO HS #90 caps 07/23/24 Results & Data (ED) Vital Signs Vital Signs - 24 hr 11/09/24 09:56 11/09/24 10:10 11/09/24 10:11 Temperature 36.8 C Temperature Source Skin Pulse Rate 91 H Pulse Rate [Apical] Pulse Rate from SpO2 Sensor Respiratory Rate 20 Respiratory Effort / Characteristics Non-Labored Spontaneous Respiratory Depth Normal Respiratory Pattern Regular Blood Pressure 101/67 88/55 L 110/59 L Blood Pressure [Left Arm] Blood Pressure Mean 78 61 69 Blood Pressure Mean [Left Arm] Pulse Oximetry 94 Oxygen Delivery Method Room Air Sepsis Recent Fever Within 48 Hours No Sepsis New/Unexplained Change in Mental Status N/A Sepsis Action Taken by Nursing No Action Required 11/09/24 10:12 11/09/24 10:20 11/09/24 10:21 Temperature Temperature Source Pulse Rate 85 84 Pulse Rate [Apical] 86 Pulse Rate from SpO2 Sensor 84 Respiratory Rate 19 20 Respiratory Effort / Characteristics Respiratory Depth Normal Respiratory Pattern Blood Pressure Blood Pressure [Left Arm] 110/59 L Blood Pressure Mean Blood Pressure Mean [Left Arm] 76 Pulse Oximetry 95 99 Oxygen Delivery Method Room Air Sepsis Recent Fever Within 48 Hours Sepsis New/Unexplained Change in Mental Status Sepsis Action Taken by Nursing 11/09/24 10:21 11/09/24 10:21 11/09/24 10:22 Temperature Temperature Source Pulse Rate 82 Pulse Rate [Apical] Pulse Rate from SpO2 Sensor Respiratory Rate 22 Respiratory Effort / Characteristics Respiratory Depth Respiratory Pattern Blood Pressure 107/61 107/61 Blood Pressure [Left Arm] Blood Pressure Mean 75 75 Blood Pressure Mean [Left Arm] Pulse Oximetry 99 Oxygen Delivery Method Room Air Sepsis Recent Fever Within 48 Hours Sepsis New/Unexplained Change in Mental Status Sepsis Action Taken by Nursing 11/09/24 10:26 11/09/24 10:30 11/09/24 10:36 Temperature Temperature Source Pulse Rate Pulse Rate [Apical] Pulse Rate from SpO2 Sensor 84 Respiratory Rate Respiratory Effort / Characteristics Respiratory Depth Respiratory Pattern Blood Pressure 117/59 L 119/56 L Blood Pressure [Left Arm] Blood Pressure Mean 68 72 Blood Pressure Mean [Left Arm] Pulse Oximetry 97 Oxygen Delivery Method Sepsis Recent Fever Within 48 Hours Sepsis New/Unexplained Change in Mental Status Sepsis Action Taken by Nursing 11/09/24 10:45 11/09/24 10:48 11/09/24 10:54 Temperature Temperature Source Pulse Rate 88 85 Pulse Rate [Apical] Pulse Rate from SpO2 Sensor 89 86 Respiratory Rate 18 21 Respiratory Effort / Characteristics Respiratory Depth Respiratory Pattern Blood Pressure 117/61 Blood Pressure [Left Arm] Blood Pressure Mean 65 Blood Pressure Mean [Left Arm] Pulse Oximetry 100 100 Oxygen Delivery Method Sepsis Recent Fever Within 48 Hours Sepsis New/Unexplained Change in Mental Status Sepsis Action Taken by Nursing 11/09/24 11:06 11/09/24 11:06 11/09/24 11:15 Temperature Temperature Source Pulse Rate 89 Pulse Rate [Apical] Pulse Rate from SpO2 Sensor Respiratory Rate 17 Respiratory Effort / Characteristics Respiratory Depth Respiratory Pattern Blood Pressure 86/56 L 88/49 L Blood Pressure [Left Arm] Blood Pressure Mean 58 65 Blood Pressure Mean [Left Arm] Pulse Oximetry Oxygen Delivery Method Sepsis Recent Fever Within 48 Hours Sepsis New/Unexplained Change in Mental Status Sepsis Action Taken by Nursing 11/09/24 11:19 11/09/24 11:24 11/09/24 11:36 Temperature Temperature Source Pulse Rate 93 H 91 H Pulse Rate [Apical] Pulse Rate from SpO2 Sensor 91 H Respiratory Rate 18 17 Respiratory Effort / Characteristics Respiratory Depth Respiratory Pattern Blood Pressure 99/59 L 121/59 L Blood Pressure [Left Arm] Blood Pressure Mean 74 79 Blood Pressure Mean [Left Arm] Pulse Oximetry 98 98 Oxygen Delivery Method Sepsis Recent Fever Within 48 Hours Sepsis New/Unexplained Change in Mental Status Sepsis Action Taken by Nursing 11/09/24 11:45 11/09/24 11:46 11/09/24 11:51 Temperature Temperature Source Pulse Rate 91 H 89 Pulse Rate [Apical] Pulse Rate from SpO2 Sensor 87 Respiratory Rate 20 16 Respiratory Effort / Characteristics Respiratory Depth Respiratory Pattern Blood Pressure 94/50 L Blood Pressure [Left Arm] Blood Pressure Mean 70 Blood Pressure Mean [Left Arm] Pulse Oximetry 97 Oxygen Delivery Method Sepsis Recent Fever Within 48 Hours Sepsis New/Unexplained Change in Mental Status Sepsis Action Taken by Nursing 11/09/24 11:54 11/09/24 12:00 11/09/24 12:00 Temperature Temperature Source Pulse Rate 96 H Pulse Rate [Apical] 94 H Pulse Rate from SpO2 Sensor 96 H Respiratory Rate 23 20 Respiratory Effort / Characteristics Respiratory Depth Normal Respiratory Pattern Blood Pressure 131/69 Blood Pressure [Left Arm] 131/69 Blood Pressure Mean 79 Blood Pressure Mean [Left Arm] 89 Pulse Oximetry 99 99 Oxygen Delivery Method Room Air Sepsis Recent Fever Within 48 Hours Sepsis New/Unexplained Change in Mental Status Sepsis Action Taken by Nursing 11/09/24 12:03 11/09/24 12:12 11/09/24 12:15 Temperature Temperature Source Pulse Rate 91 H 93 H 91 H Pulse Rate [Apical] Pulse Rate from SpO2 Sensor 91 H 94 H 91 H Respiratory Rate 22 20 22 Respiratory Effort / Characteristics Respiratory Depth Respiratory Pattern Blood Pressure Blood Pressure [Left Arm] Blood Pressure Mean Blood Pressure Mean [Left Arm] Pulse Oximetry 99 99 99 Oxygen Delivery Method Sepsis Recent Fever Within 48 Hours Sepsis New/Unexplained Change in Mental Status Sepsis Action Taken by Nursing 11/09/24 12:15 11/09/24 12:21 11/09/24 12:30 Temperature Temperature Source Pulse Rate 94 H 91 H Pulse Rate [Apical] Pulse Rate from SpO2 Sensor 93 H 92 H Respiratory Rate 23 23 Respiratory Effort / Characteristics Respiratory Depth Respiratory Pattern Blood Pressure 138/63 Blood Pressure [Left Arm] Blood Pressure Mean 74 Blood Pressure Mean [Left Arm] Pulse Oximetry 99 99 Oxygen Delivery Method Sepsis Recent Fever Within 48 Hours Sepsis New/Unexplained Change in Mental Status Sepsis Action Taken by Nursing 11/09/24 12:31 11/09/24 12:42 11/09/24 12:45 Temperature Temperature Source Pulse Rate 92 H 93 H Pulse Rate [Apical] Pulse Rate from SpO2 Sensor Respiratory Rate 22 20 Respiratory Effort / Characteristics Respiratory Depth Respiratory Pattern Blood Pressure 135/72 Blood Pressure [Left Arm] Blood Pressure Mean 101 Blood Pressure Mean [Left Arm] Pulse Oximetry Oxygen Delivery Method Sepsis Recent Fever Within 48 Hours Sepsis New/Unexplained Change in Mental Status Sepsis Action Taken by Nursing 11/09/24 13:00 11/09/24 13:06 11/09/24 13:12 Temperature Temperature Source Pulse Rate 92 H 95 H Pulse Rate [Apical] Pulse Rate from SpO2 Sensor Respiratory Rate 16 23 Respiratory Effort / Characteristics Respiratory Depth Respiratory Pattern Blood Pressure 116/55 L Blood Pressure [Left Arm] Blood Pressure Mean 71 Blood Pressure Mean [Left Arm] Pulse Oximetry Oxygen Delivery Method Sepsis Recent Fever Within 48 Hours Sepsis New/Unexplained Change in Mental Status Sepsis Action Taken by Nursing 11/09/24 13:15 11/09/24 13:30 11/09/24 13:35 Temperature Temperature Source Pulse Rate 89 Pulse Rate [Apical] 92 H Pulse Rate from SpO2 Sensor Respiratory Rate 28 H 20 Respiratory Effort / Characteristics Respiratory Depth Respiratory Pattern Blood Pressure 87/61 L Blood Pressure [Left Arm] 112/54 L Blood Pressure Mean 70 Blood Pressure Mean [Left Arm] 73 Pulse Oximetry 93 Oxygen Delivery Method Room Air Sepsis Recent Fever Within 48 Hours Sepsis New/Unexplained Change in Mental Status Sepsis Action Taken by Nursing 11/09/24 13:45 11/09/24 13:54 11/09/24 14:06 Temperature Temperature Source Pulse Rate 94 H 94 H Pulse Rate [Apical] Pulse Rate from SpO2 Sensor Respiratory Rate 22 21 Respiratory Effort / Characteristics Respiratory Depth Respiratory Pattern Blood Pressure 107/61 Blood Pressure [Left Arm] Blood Pressure Mean 78 Blood Pressure Mean [Left Arm] Pulse Oximetry Oxygen Delivery Method Sepsis Recent Fever Within 48 Hours Sepsis New/Unexplained Change in Mental Status Sepsis Action Taken by Nursing 11/09/24 14:09 11/09/24 14:18 Temperature Temperature Source Pulse Rate 91 H Pulse Rate [Apical] Pulse Rate from SpO2 Sensor Respiratory Rate 17 Respiratory Effort / Characteristics Respiratory Depth Respiratory Pattern Blood Pressure 122/58 L Blood Pressure [Left Arm] Blood Pressure Mean 72 Blood Pressure Mean [Left Arm] Pulse Oximetry 98 Oxygen Delivery Method Sepsis Recent Fever Within 48 Hours Sepsis New/Unexplained Change in Mental Status Sepsis Action Taken by Long-Term Medications Current Medication List: was personally reviewed by me Laboratory Data Attestation: I reviewed the patient's lab results. 11/10/24 09:51 11/10/24 04:00 Lab Results 11/09/24 11/09/24 11/09/24 Range/Units 10:18 10:20 10:23 WBC 8.54 (4.8-10.8) K/ul RBC 3.43 L (4.70-6.10) M/uL Hgb 9.0 L (14.0-18.0) g/dl Hct 29.2 L (42.0-52.0) % MCV 85.1 (80.0-100.0) fL MCH 26.2 (25.0-34.0) pg MCHC 30.8 L (32.0-36.0) g/dL RDW Std Deviation 48.7 H (36.4-46.3) fL RDW Coeff of Juli 15.9 H (11.5-14.5) % Plt Count 114 L (130-400) K/uL MPV 11.0 (9.4-12.4) fL Immature Gran % (Auto) 0.7 % Neut % (Auto) 79.5 % Lymph % (Auto) 11.7 % Barton % (Auto) 7.1 % Eos % (Auto) 0.5 % Baso % (Auto) 0.5 % Neut # (Auto) 6.79 H (1.40-6.50) K/uL Lymph # (Auto) 1.00 L (1.20-3.40) K/uL Barton # (Auto) 0.61 H (0.11-0.59) K/uL Eos # (Auto) 0.04 (0.00-0.50) K/uL Baso # (Auto) 0.04 (0.00-0.20) K/uL Immature Gran # (Auto) 0.06 (0.01-0.20) K/uL PT (9.0-12.0) Seconds INR (0.9-1.1) Sodium 139 (136-145) mmol/L Potassium 3.9 (3.5-5.1) mmol/L Chloride 102 (98-107) mmol/L Carbon Dioxide 28 (21-32) mmol/L Anion Gap 9 (3-11) BUN 42 H (6-23) mg/dl Creatinine 1.38 (0.6-1.4) mg/dl Est Cr Clr Drug Dosing 67.6 ml/min eGFR 57.10 BUN/Creatinine Ratio 30.4 H (10-20) Glucose 290 H (70-99(Fasting)) mg/dl POC Glucose 292 H (70-99) mg/dl Calcium 8.0 L (8.6-10.3) mg/dl Magnesium 2.0 (1.7-2.4) mg/dl Total Bilirubin 1.7 H (0.2-1.0) mg/dl AST 31 (13-39) U/L ALT 29 (7-52) U/L Alkaline Phosphatase 57 (34-104) U/L Troponin I High Sens 85.5 H* (0-20) pg/ml Total Protein 5.8 L (6.0-8.3) gm/dl Albumin 3.2 L (3.4-5.0) gm/dl Globulin 2.6 (2.5-4.0) gm/dl Albumin/Globulin Ratio 1.2 (0.9-2) TSH 1.168 (0.300-4.500) uIu/ml Random Cortisol mcg/dl Adenovirus (PCR) Not Detected (NotDetected) B. pertussis DNA (PCR) Not Detected (NotDetected) B.parapertussis DNA PCR Not Detected (NotDetected) C. pneumoniae DNA (PCR) Not Detected (NotDetected) Coronavirus OC43 (PCR) Not Detected (NotDetected) Coronavirus HKU1 (PCR) Not Detected (NotDetected) Coronavirus 229E (PCR) Not Detected (NotDetected) SARS-CoV-2 (PCR) Not Detected (NotDetected) Coronavirus NL63 (PCR) Not Detected (NotDetected) Human Metapneumovir PCR Not Detected (NotDetected) Influenza Type A (PCR) Not Detected (NotDetected) Influenza Type B (PCR) Not Detected (NotDetected) M. pneumoniae (PCR) Not Detected (NotDetected) Parainfluenza 1 (PCR) Not Detected (NotDetected) Parainfluenza 2 (PCR) Not Detected (NotDetected) Parainfluenza 3 (PCR) Not Detected (NotDetected) Parainfluenza 4 (PCR) Not Detected (NotDetected) RSV (PCR) Not Detected (NotDetected) Entero/Rhino (PCR) Not Detected (NotDetected) Blood Type Blood Type Recheck Antibody Screen Crossmatch 11/09/24 11/09/24 11/09/24 Range/Units 11:21 12:34 13:59 WBC (4.8-10.8) K/ul RBC (4.70-6.10) M/uL Hgb (14.0-18.0) g/dl Hct (42.0-52.0) % MCV (80.0-100.0) fL MCH (25.0-34.0) pg MCHC (32.0-36.0) g/dL RDW Std Deviation (36.4-46.3) fL RDW Coeff of Juli (11.5-14.5) % Plt Count (130-400) K/uL MPV (9.4-12.4) fL Immature Gran % (Auto) % Neut % (Auto) % Lymph % (Auto) % Barton % (Auto) % Eos % (Auto) % Baso % (Auto) % Neut # (Auto) (1.40-6.50) K/uL Lymph # (Auto) (1.20-3.40) K/uL Barton # (Auto) (0.11-0.59) K/uL Eos # (Auto) (0.00-0.50) K/uL Baso # (Auto) (0.00-0.20) K/uL Immature Gran # (Auto) (0.01-0.20) K/uL PT 13.0 H (9.0-12.0) Seconds INR 1.2 H (0.9-1.1) Sodium (136-145) mmol/L Potassium (3.5-5.1) mmol/L Chloride (98-107) mmol/L Carbon Dioxide (21-32) mmol/L Anion Gap (3-11) BUN (6-23) mg/dl Creatinine (0.6-1.4) mg/dl Est Cr Clr Drug Dosing ml/min eGFR BUN/Creatinine Ratio (10-20) Glucose (70-99(Fasting)) mg/dl POC Glucose (70-99) mg/dl Calcium (8.6-10.3) mg/dl Magnesium (1.7-2.4) mg/dl Total Bilirubin (0.2-1.0) mg/dl AST (13-39) U/L ALT (7-52) U/L Alkaline Phosphatase (34-104) U/L Troponin I High Sens 92.3 H* (0-20) pg/ml Total Protein (6.0-8.3) gm/dl Albumin (3.4-5.0) gm/dl Globulin (2.5-4.0) gm/dl Albumin/Globulin Ratio (0.9-2) TSH (0.300-4.500) uIu/ml Random Cortisol mcg/dl Adenovirus (PCR) (NotDetected) B. pertussis DNA (PCR) (NotDetected) B.parapertussis DNA PCR (NotDetected) C. pneumoniae DNA (PCR) (NotDetected) Coronavirus OC43 (PCR) (NotDetected) Coronavirus HKU1 (PCR) (NotDetected) Coronavirus 229E (PCR) (NotDetected) SARS-CoV-2 (PCR) (NotDetected) Coronavirus NL63 (PCR) (NotDetected) Human Metapneumovir PCR (NotDetected) Influenza Type A (PCR) (NotDetected) Influenza Type B (PCR) (NotDetected) M. pneumoniae (PCR) (NotDetected) Parainfluenza 1 (PCR) (NotDetected) Parainfluenza 2 (PCR) (NotDetected) Parainfluenza 3 (PCR) (NotDetected) Parainfluenza 4 (PCR) (NotDetected) RSV (PCR) (NotDetected) Entero/Rhino (PCR) (NotDetected) Blood Type A Positive Blood Type Recheck A Positive Antibody Screen NEGATIVE Crossmatch See Detail 11/09/24 Range/Units 14:22 WBC 12.62 H (4.8-10.8) K/ul RBC 3.21 L (4.70-6.10) M/uL Hgb 8.4 L (14.0-18.0) g/dl Hct 27.3 L (42.0-52.0) % MCV 85.0 (80.0-100.0) fL MCH 26.2 (25.0-34.0) pg MCHC 30.8 L (32.0-36.0) g/dL RDW Std Deviation 49.0 H (36.4-46.3) fL RDW Coeff of Juli 15.9 H (11.5-14.5) % Plt Count 145 (130-400) K/uL MPV 10.8 (9.4-12.4) fL Immature Gran % (Auto) % Neut % (Auto) % Lymph % (Auto) % Barton % (Auto) % Eos % (Auto) % Baso % (Auto) % Neut # (Auto) (1.40-6.50) K/uL Lymph # (Auto) (1.20-3.40) K/uL Barton # (Auto) (0.11-0.59) K/uL Eos # (Auto) (0.00-0.50) K/uL Baso # (Auto) (0.00-0.20) K/uL Immature Gran # (Auto) (0.01-0.20) K/uL PT (9.0-12.0) Seconds INR (0.9-1.1) Sodium (136-145) mmol/L Potassium (3.5-5.1) mmol/L Chloride (98-107) mmol/L Carbon Dioxide (21-32) mmol/L Anion Gap (3-11) BUN (6-23) mg/dl Creatinine (0.6-1.4) mg/dl Est Cr Clr Drug Dosing ml/min eGFR BUN/Creatinine Ratio (10-20) Glucose (70-99(Fasting)) mg/dl POC Glucose (70-99) mg/dl Calcium (8.6-10.3) mg/dl Magnesium (1.7-2.4) mg/dl Total Bilirubin (0.2-1.0) mg/dl AST (13-39) U/L ALT (7-52) U/L Alkaline Phosphatase (34-104) U/L Troponin I High Sens (0-20) pg/ml Total Protein (6.0-8.3) gm/dl Albumin (3.4-5.0) gm/dl Globulin (2.5-4.0) gm/dl Albumin/Globulin Ratio (0.9-2) TSH (0.300-4.500) uIu/ml Random Cortisol 18.62 mcg/dl Adenovirus (PCR) (NotDetected) B. pertussis DNA (PCR) (NotDetected) B.parapertussis DNA PCR (NotDetected) C. pneumoniae DNA (PCR) (NotDetected) Coronavirus OC43 (PCR) (NotDetected) Coronavirus HKU1 (PCR) (NotDetected) Coronavirus 229E (PCR) (NotDetected) SARS-CoV-2 (PCR) (NotDetected) Coronavirus NL63 (PCR) (NotDetected) Human Metapneumovir PCR (NotDetected) Influenza Type A (PCR) (NotDetected) Influenza Type B (PCR) (NotDetected) M. pneumoniae (PCR) (NotDetected) Parainfluenza 1 (PCR) (NotDetected) Parainfluenza 2 (PCR) (NotDetected) Parainfluenza 3 (PCR) (NotDetected) Parainfluenza 4 (PCR) (NotDetected) RSV (PCR) (NotDetected) Entero/Rhino (PCR) (NotDetected) Blood Type Blood Type Recheck Antibody Screen Crossmatch Administered Medications Octreotide Acetate 500 mcg/ (Sodium Chloride) 100.5 mls @ 10.05 mls/hr IV .Q10H [facility] Stop: 11/11/24 13:29 Last Admin: 11/10/24 09:26 Dose: 50 mcg/hr, 10.1 mls/hr Documented By: Infusion: 11/10/24 09:25 Dose: Infused Documented By: Admin: 11/09/24 23:27 Dose: 50 mcg/hr, 10.1 mls/hr Documented By: [id number] Infusion: 11/09/24 23:27 Dose: Infused Documented By: [id number] Admin: 11/09/24 14:08 Dose: 50 mcg/hr, 10.1 mls/hr Documented By: [facility] Metronidazole (Flagyl) 500 mg in 100 mls @ 100 mls/hr IV Q8H [facility]OOD; Protocol Stop: 11/14/24 16:14 Last Infusion: 11/10/24 09:11 Dose: Infused Documented By: Admin: 11/10/24 08:10 Dose: 100 mls/hr Documented By: Infusion: 11/10/24 01:30 Dose: Infused Documented By: [id number] Admin: 11/10/24 00:13 Dose: 100 mls/hr Documented By: [id number] Infusion: 11/09/24 20:22 Dose: Infused Documented By: [id number] Admin: 11/09/24 18:41 Dose: 100 mls/hr Documented By: DANIEL Acetaminophen (Ofirmev) 1,000 mg in 100 mls @ 400 mls/hr IV Q8H PRN PRN Reason: Fever or headache Stop: 11/12/24 16:14 Last Infusion: 11/10/24 06:29 Dose: Infused Documented By: [id number] Admin: 11/10/24 06:13 Dose: 400 mls/hr Documented By: [id number] Fentanyl Citrate (Fentanyl Citrate) 2,500 mcg in 250 mls @ 2.5 mls/hr IV .Q96H [facility]; Protocol Stop: 11/12/24 17:20 Last Titration: 11/10/24 13:04 Dose: 25 mcg/hr, 2.5 mls/hr Documented By: LAURA Co-signed By: ZACK Titration: 11/10/24 11:53 Dose: 50 mcg/hr, 5 mls/hr Documented By: LAURA Co-signed By: [email or web address] Titration: 11/10/24 09:54 Dose: 75 mcg/hr, 7.5 mls/hr Documented By: AMS Co-signed By: [email or web address] Titration: 11/10/24 09:03 Dose: 0 mcg/hr, 0 mls/hr Documented By: AMS Co-signed By: ZACK Titration: 11/10/24 08:54 Dose: 25 mcg/hr, 2.5 mls/hr Documented By: AMS Co-signed By: NMK Titration: 11/10/24 07:03 Dose: 75 mcg/hr, 7.5 mls/hr Documented By: AMS Co-signed By: [id number] Titration: 11/10/24 06:14 Dose: 75 mcg/hr, 7.5 mls/hr Documented By: [id number] Co-signed By: JT Titration: 11/09/24 19:27 Dose: 100 mcg/hr, 10 mls/hr Documented By: [id number] Co-signed By: MTP Titration: 11/09/24 16:45 Dose: 100 mcg/hr, 10 mls/hr Documented By: MTP Co-signed By: GPF Titration: 11/09/24 16:15 Dose: 75 mcg/hr, 7.5 mls/hr Documented By: MTP Co-signed By: GPF Admin: 11/09/24 15:50 Dose: 50 mcg/hr, 5 mls/hr Documented By: MTP Co-signed By: GPF Propofol (Diprivan) 1,000 mg in 100 mls @ 14.196 mls/hr IV .Q7H3M [facility]; Protocol Stop: 11/12/24 17:29 Last Titration: 11/10/24 09:54 Dose: Infused Documented By: AMS Co-signed By: [id number] Admin: 11/10/24 09:54 Dose: 20 mcg/kg/min, 14.2 mls/hr Documented By: AMS Co-signed By: [email or web address] Titration: 11/10/24 08:54 Dose: 0 mcg/kg/min, 0 mls/hr Documented By: Admin: 11/10/24 08:52 Dose: Not Given Documented By: Titration: 11/10/24 08:38 Dose: 20 mcg/kg/min, 14.2 mls/hr Documented By: Titration: 11/10/24 07:03 Dose: 25 mcg/kg/min, 17.7 mls/hr Documented By: LAURA Co-signed By: [id number] Titration: 11/10/24 06:14 Dose: 25 mcg/kg/min, 17.7 mls/hr Documented By: [id number] Admin: 11/10/24 04:03 Dose: 30 mcg/kg/min, 21.3 mls/hr Documented By: [id number] Co-signed By: JACI Titration: 11/10/24 04:03 Dose: Infused Documented By: [id number] Co-signed By: JACI Admin: 11/09/24 23:26 Dose: 30 mcg/kg/min, 21.3 mls/hr Documented By: [id number] Co-signed By: BASIA Admin: 11/09/24 21:07 Dose: Not Given Documented By: [id number] Titration: 11/09/24 20:43 Dose: Infused Documented By: [id number] Co-signed By: BASIA Titration: 11/09/24 19:27 Dose: 30 mcg/kg/min, 21.3 mls/hr Documented By: [id number] Titration: 11/09/24 16:45 Dose: 30 mcg/kg/min, 21.3 mls/hr Documented By: Titration: 11/09/24 16:00 Dose: 25 mcg/kg/min, 17.7 mls/hr Documented By: Admin: 11/09/24 15:50 Dose: 20 mcg/kg/min, 14.2 mls/hr Documented By: MTP Co-signed By: GPF Norepinephrine Bitartrate (Levophed/D5w) 4 mg in 250 mls @ 22.181 mls/hr IV .[id number] [facility]; Protocol Stop: 12/09/24 17:44 Last Admin: 11/10/24 09:53 Dose: 0.05 mcg/kg/min, 22.2 mls/hr Documented By: LAURA Co-signed By: KENNY Titration: 11/10/24 09:24 Dose: Infused Documented By: LAURA Co-signed By: [email or web address] Titration: 11/10/24 07:03 Dose: 0.05 mcg/kg/min, 22.2 mls/hr Documented By: AMS Co-signed By: [id number] Admin: 11/10/24 06:03 Dose: Not Given Documented By: [id number] Titration: 11/10/24 05:00 Dose: 0.05 mcg/kg/min, 22.2 mls/hr Documented By: [id number] Co-signed By: JT Admin: 11/10/24 04:37 Dose: Not Given Documented By: [id number] Titration: 11/10/24 04:03 Dose: 0.04 mcg/kg/min, 17.7 mls/hr Documented By: [id number] Co-signed By: JT Admin: 11/10/24 02:28 Dose: Not Given Documented By: [id number] Admin: 11/10/24 01:59 Dose: Not Given Documented By: [id number] Titration: 11/10/24 01:58 Dose: 0.05 mcg/kg/min, 22.2 mls/hr Documented By: [id number] Co-signed By: JT Titration: 11/09/24 23:30 Dose: 0.06 mcg/kg/min, 26.6 mls/hr Documented By: [id number] Co-signed By: PAH Admin: 11/09/24 22:44 Dose: 0.07 mcg/kg/min, 31.1 mls/hr Documented By: [id number] Co-signed By: TLM Titration: 11/09/24 22:33 Dose: Infused Documented By: [id number] Co-signed By: TLM Titration: 11/09/24 19:27 Dose: 0.08 mcg/kg/min, 35.5 mls/hr Documented By: [id number] Co-signed By: MTP Titration: 11/09/24 19:26 Dose: 0.08 mcg/kg/min, 35.5 mls/hr Documented By: [id number] Co-signed By: MTP Titration: 11/09/24 16:45 Dose: 0.1 mcg/kg/min, 44.4 mls/hr Documented By: MTP Co-signed By: ANGELY Admin: 11/09/24 15:50 Dose: 0.05 mcg/kg/min, 22.2 mls/hr Documented By: MTP Co-signed By: ANGELY Pantoprazole Sodium (Protonix) 40 mg in 10 mls @ 5 mls/min IV BID [facility] Stop: 12/09/24 20:59 Last Admin: 11/10/24 08:09 Dose: 5 mls/min Documented By: Admin: 11/09/24 21:20 Dose: 5 mls/min Documented By: [id number] Insulin Aspart (Insulin Aspart Per Unit Charge) 0 units SC Q6 [facility] Stop: 12/10/24 05:59 Last Admin: 11/10/24 12:03 Dose: Not Given Documented By: Admin: 11/10/24 05:07 Dose: Not Given Documented By: [id number] Ondansetron HCl (Ondansetron Inj 2 Mg/Ml 2 Ml Vial) 4 mg IV Q6H PRN PRN Reason: Nausea Stop: 12/09/24 16:05 Last Admin: 11/10/24 09:42 Dose: 4 mg Documented By: TIO Propofol (Propofol Bolus From Bag) 20 mg IV Q5M PRN PRN Reason: Sedation Stop: 11/12/24 17:22 Last Admin: 11/10/24 09:54 Dose: 20 mg Documented By: LAURA Co-signed By: KENNY Discontinued Medications Epinephrine HCl (Epinephrine 1.5" Ndl 0.1 Mg/Ml Syr) Confirm Administered Dose 1 mg IV .STK-MED ONE Stop: 11/09/24 16:33 Last Admin: 11/09/24 16:33 Dose: Not Given Documented By: NEHA Fentanyl Citrate (Fentanyl Citrate 2,500 Mcg/250 Ml Bag) Confirm Administered Dose 2,500 mcg IV .STK-MED ONE Stop: 11/09/24 15:59 Last Admin: 11/09/24 17:43 Dose: Not Given Documented By: JOSE Sodium Chloride (Nss) 500 mls @ 999 mls/hr IV .Q31M ONE Stop: 11/09/24 10:51 Last Infusion: 11/09/24 11:07 Dose: Infused Documented By: Admin: 11/09/24 10:24 Dose: 999 mls/hr Documented By: FLOR Pantoprazole Sodium 40 mg/ (Dextrose) 100 mls @ 20 mls/hr IV Q5H [facility] Stop: 12/09/24 11:29 Last Admin: 11/09/24 21:18 Dose: Not Given Documented By: [id number] Infusion: 11/09/24 20:22 Dose: Infused Documented By: [id number] Admin: 11/09/24 11:36 Dose: 8 mg/hr, 20 mls/hr Documented By: FLOR Pantoprazole Sodium 80 mg/ (Dextrose) 120 mls @ 480 mls/hr IV NOW ONE Stop: 11/09/24 11:23 Last Infusion: 11/09/24 12:27 Dose: Infused Documented By: Admin: 11/09/24 11:22 Dose: 480 mls/hr Documented By: FLOR Ceftriaxone Sodium (Rocephin) 1,000 mg in 50 mls @ 100 mls/hr IV NOW STA Stop: 11/09/24 13:38 Last Infusion: 11/09/24 13:57 Dose: Infused Documented By: Admin: 11/09/24 13:22 Dose: 100 mls/hr Documented By: OSVALDO Octreotide Acetate 50 mcg/ (Syringe) 10 mls @ 3 mls/min IV ONE STA Stop: 11/09/24 13:12 Last Admin: 11/09/24 13:57 Dose: 3 mls/min Documented By: FLOR Calcium Gluconate () 1,000 mg in 60 mls @ 240 mls/hr IV Q15M [facility] Stop: 11/09/24 18:59 Last Infusion: 11/09/24 21:19 Dose: Infused Documented By: [id number] Admin: 11/09/24 21:00 Dose: 240 mls/hr Documented By: [id number] Infusion: 11/09/24 21:00 Dose: Infused Documented By: [id number] Admin: 11/09/24 20:45 Dose: 240 mls/hr Documented By: [id number] Infusion: 11/09/24 20:43 Dose: Infused Documented By: [id number] Admin: 11/09/24 20:28 Dose: 240 mls/hr Documented By: [id number] Lactated Ringer's (Lr) 1,000 mls @ 999 mls/hr IV .Q1H1M [facility] Stop: 11/09/24 19:15 Last Infusion: 11/09/24 20:23 Dose: Infused Documented By: [id number] Admin: 11/09/24 18:40 Dose: 999 mls/hr Documented By: CB Potassium Chloride (K Parviz / Wtr) 10 meq in 100 mls @ 100 mls/hr IV Q1H [facility] Stop: 11/10/24 10:29 Last Infusion: 11/10/24 11:27 Dose: Infused Documented By: Admin: 11/10/24 09:54 Dose: 100 mls/hr Documented By: Infusion: 11/10/24 09:52 Dose: Infused Documented By: Admin: 11/10/24 08:52 Dose: 100 mls/hr Documented By: Infusion: 11/10/24 08:47 Dose: Infused Documented By: [facility] Admin: 11/10/24 07:47 Dose: 100 mls/hr Documented By: Infusion: 11/10/24 07:46 Dose: Infused Documented By: Admin: 11/10/24 06:46 Dose: 100 mls/hr Documented By: [id number] Insulin Aspart (Insulin Aspart Per Unit Charge) 0 units SC [facility] Stop: 12/09/24 20:59 Last Admin: 11/09/24 21:06 Dose: 4 units Documented By: [id number] Co-signed By: JACI Lidocaine HCl (Lidocaine 2% 2 Ml Vial/Amp(20mg/Ml)) Confirm Administered Dose 2 ml INFIL .STK-MED ONE Stop: 11/09/24 13:27 Last Admin: 11/09/24 17:14 Dose: Not Given Documented By: JOSE Lidocaine HCl (Lidocaine 2% 2 Ml Vial/Amp(20mg/Ml)) Confirm Administered Dose 2 ml INFIL .STK-MED ONE Stop: 11/09/24 13:27 Last Admin: 11/09/24 17:14 Dose: Not Given Documented By: JOSE Metoclopramide HCl (Metoclopramide Hcl Inj 5 Mg/Ml 2 Ml Vial) 10 mg IV NOW STA Stop: 11/09/24 14:14 Last Admin: 11/09/24 14:21 Dose: 10 mg Documented By: FLOR Metoclopramide HCl (Metoclopramide Hcl Inj 5 Mg/Ml 2 Ml Vial) Confirm Administered Dose 10 mg .ROUTE .STK-MED ONE Stop: 11/09/24 14:15 Last Admin: 11/09/24 14:22 Dose: Not Given Documented By: FLOR Sanchez (Icu Protocol For Hyperglycemia) 1 each N/A [facility] Stop: 11/11/24 16:29 Last Admin: 11/10/24 07:22 Dose: Not Given Documented By: Admin: 11/09/24 20:42 Dose: 1 each Documented By: [id number] Admin: 11/09/24 20:23 Dose: 1 each Documented By: [id number] Daniel (Stat Iv Infusion Titration Per Protocol) 1 each N/A NOW STA Stop: 11/09/24 17:24 Last Admin: 11/09/24 19:51 Dose: Not Given Documented By: [facility] Norepinephrine Bitartrate (Norepinephrine/D5w 4 Mg/250 Ml) Confirm Administered Dose 4 mg IV .STK-MED ONE Stop: 11/09/24 16:17 Last Admin: 11/09/24 17:43 Dose: Not Given Documented By: [facility] Pantoprazole Sodium (Pantoprazole Bolus/Drip) 1 each IV NOW STA Stop: 11/09/24 11:10 Last Admin: 11/09/24 11:22 Dose: Not Given Documented By: [facility] Propofol (Propofol Iv Emulsion 10 Mg/Ml 20 Ml Vial) Confirm Administered Dose 200 mg IV .STK-MED ONE Stop: 11/09/24 13:27 Last Admin: 11/09/24 17:19 Dose: Not Given Documented By: [facility] Propofol (Propofol Iv Emulsion 10 Mg/Ml 100 Ml Vial) Confirm Administered Dose 1,000 mg IV .STK-MED ONE Stop: 11/09/24 15:44 Last Admin: 11/09/24 17:42 Dose: Not Given Documented By: [facility] Imaging Data Radiologist's Impression: Chest X-Ray 11/09/24 10:22 XR chest 1V portable CLINICAL HISTORY: weakness COMPARISON STUDY: None FINDINGS: There is mild cardiomegaly without pulmonary vascular congestion. No effusion, consolidation, or pneumothorax. IMPRESSION: No acute findings. ACT 112: Negative or not required by law. Electronically signed by: Leonidas Gibson M.D. 11/09/2024 10:47 AM Discharge Plan Visit Data Chief Complaint: Referred by Doctor Stated Complaint: REF BY [facility] FOR CHEST X-RAY ED Provider: Leidy Reaves Discharge Problem: UGIB (upper gastrointestinal bleed), ABLA (acute blood loss anemia), Non-ST elevation AR (NSTEMI) Patient Disposition: Admitted As Inpatient Discharge Instructions Interventions: ED Discharge Assessment Last Done: 11/09/24 14:48 Discharge Problem:
[2024-11-09] MEDS ORDERED: ACETAMINOPHEN 1,000 MG/100 ML VIAL IV PRN (16:06)
[2024-11-09] MEDS ORDERED: DEXTROSE 50% 50 ML SYRINGE IV PRN ×2 (16:06→20:55)
[2024-11-09] MEDS ORDERED: GLUCAGON FOR INJ 1 MG VIAL SQ PRN ×2 (16:06→20:55)
[2024-11-09 16:20] LABS: iSTAT Art Bld Gas pCO2 Correct 59 mmHg (35-46); iSTAT Art Bld Gas pH Corrected 7.229 (7.35-7.45); iSTAT Arterial Blood Gas HCO3 25 meg/L (19-24); iSTAT Arterial Blood Gas pCO2 57 mmHg (35-46); iSTAT Arterial Blood Gas pH 7.24 (7.35-7.45); iSTAT Arterial Blood Gas pO2 97 mmHg (80-95); iSTAT Arterial Blood Gas pO2 C 102; iSTAT Carbon Dioxide 26 mmol/L (24-31); iSTAT FiO2 60 %; iSTAT Hematocrit 25 % (42-52); iSTAT Hemoglobin 8.5 g/dl (14.0-18.0); iSTAT Potassium 4.9 mmol/L (3.3-5.0); iSTAT Sample Type Arterial; iSTAT Site Art Line; iSTAT Sodium 138 mmol/L (135-144); iSTAT SpO2 99
--- NOTE | 2024-11-09 16:29 | Anesthesiology Progress Note ---
Date of Service November 09, 2024 Anesthesia Post Procedure Vital Signs Vital Signs: Temp Pulse Pulse Resp BP BP Pulse Ox 11/09/24 16:03 99.9 F H 100 H 18 123/56 L 99 11/09/24 14:18 122/58 L 98 11/09/24 14:09 91 H 17 11/09/24 14:06 94 H 21 11/09/24 13:54 94 H 22 11/09/24 13:45 107/61 11/09/24 13:35 92 H 20 112/54 L 93 11/09/24 13:30 87/61 L 11/09/24 13:15 89 28 H 11/09/24 13:12 95 H 23 11/09/24 13:06 92 H 16 11/09/24 13:00 116/55 L 11/09/24 12:45 93 H 20 11/09/24 12:42 92 H 22 11/09/24 12:31 135/72 11/09/24 12:30 91 H 23 99 11/09/24 12:21 94 H 23 99 11/09/24 12:15 138/63 11/09/24 12:15 91 H 22 99 11/09/24 12:12 93 H 20 99 11/09/24 12:03 91 H 22 99 11/09/24 12:00 131/69 11/09/24 12:00 94 H 20 131/69 99 11/09/24 11:54 96 H 23 99 11/09/24 11:51 89 16 97 11/09/24 11:46 94/50 L 11/09/24 11:45 91 H 20 11/09/24 11:36 91 H 17 98 11/09/24 11:24 93 H 18 121/59 L 98 11/09/24 11:19 99/59 L 11/09/24 11:15 88/49 L 11/09/24 11:06 86/56 L 11/09/24 11:06 89 17 11/09/24 10:54 85 21 100 11/09/24 10:48 88 18 100 11/09/24 10:45 117/61 11/09/24 10:36 97 11/09/24 10:30 119/56 L 11/09/24 10:26 117/59 L 11/09/24 10:22 82 22 99 11/09/24 10:21 107/61 11/09/24 10:21 107/61 11/09/24 10:21 84 20 99 11/09/24 10:20 85 11/09/24 10:12 86 19 110/59 L 95 11/09/24 10:11 110/59 L 11/09/24 10:10 88/55 L 11/09/24 09:56 98.2 F 91 H 20 101/67 94 O2 Del Method 11/09/24 16:03 11/09/24 14:18 11/09/24 14:09 11/09/24 14:06 11/09/24 13:54 11/09/24 13:45 11/09/24 13:35 Room Air 11/09/24 13:30 11/09/24 13:15 11/09/24 13:12 11/09/24 13:06 11/09/24 13:00 11/09/24 12:45 11/09/24 12:42 11/09/24 12:31 11/09/24 12:30 11/09/24 12:21 11/09/24 12:15 11/09/24 12:15 11/09/24 12:12 11/09/24 12:03 11/09/24 12:00 11/09/24 12:00 Room Air 11/09/24 11:54 11/09/24 11:51 11/09/24 11:46 11/09/24 11:45 11/09/24 11:36 11/09/24 11:24 11/09/24 11:19 11/09/24 11:15 11/09/24 11:06 11/09/24 11:06 11/09/24 10:54 11/09/24 10:48 11/09/24 10:45 11/09/24 10:36 11/09/24 10:30 11/09/24 10:26 11/09/24 10:22 Room Air 11/09/24 10:21 11/09/24 10:21 11/09/24 10:21 11/09/24 10:20 11/09/24 10:12 Room Air 11/09/24 10:11 11/09/24 10:10 11/09/24 09:56 Room Air Transfer of Care Handoff Completed per policy Notes Mental Status: see notes below Patient Amnestic to Procedure: Yes Nausea / Vomiting: adequately controlled Pain: adequately controlled Airway Patency, RR, SpO2: see Notes below BP & HR: stable & adequate Hydration State: stable & adequate Anesthetic Complications: no major complications apparent and see Notes below Notes: Patient remains intubated d/t significant blood remaining in stomach per surgeon, patient sedated and ventilated mechanically
--- NOTE | 2024-11-09 17:12 | XRay Report ---
EXAM: XR chest 1V portable CLINICAL HISTORY: F/u X-ray. TECHNIQUE: Portable X-ray images of the chest were obtained in AP projection. COMPARISON: No prior studies available for comparison. FINDINGS: Pulmonary Parenchyma: bilateral exaggerated bronchovascular markings with bilateral middle and lower lung zones as well as left costodiaphragmatic recess veiling mounting to opacity. No evidence of pleural effusion or pleural thickening. Heart and Mediastinum: Heart size and shape are normal. No mediastinal widening or masses. Bulky left hilum endotracheal tube is seen in place Bony Thorax: Bony thorax appears intact without fractures or deformities. Soft Tissues: Soft tissues overlying the chest wall are unremarkable. IMPRESSION: 1. Bilateral exaggerated bronchovascular markings with bilateral middle and lower lung zone as well as left costodiaphragmatic recess veiling mounting to opacity for correlation with clinical data. 2. Bulky left hilum with probable mass or infiltration. 3. An endotracheal tube is seen in place. Electronically signed by Javon Bravo 11-09-2024 5:12 PM
[2024-11-09] MEDS: LIDOCAINE 2% 2 ML VIAL/AMP(20MG/ML) INFIL ONE ×2 (17:14)
[2024-11-09] MEDS: PROPOFOL IV EMULSION 10 MG/ML 20 ML VIAL IV ONE (17:19)
[2024-11-09] MEDS ORDERED: fentaNYL BOLUS from BAG IV PRN (17:21)
[2024-11-09] MEDS ORDERED: STAT IV Infusion **Titration per Protocol STA ×2 (17:21→17:41)
[2024-11-09] MEDS: PROPOFOL IV EMULSION 10 MG/ML 100 ML VIAL IV ONE (17:42)
[2024-11-09] MEDS: fentaNYL citrate 2,500 MCG/250 ML BAG IV ONE (17:43)
[2024-11-09] MEDS: NOREPINEPHRINE/D5W 4 MG/250 ML IV ONE (17:43)
[2024-11-09 17:45] LABS: Albumin Level 3.1 gm/dl (3.4-5.0); Bilirubin,Total 1.3 mg/dl (0.2-1.0); Potassium 4.6 mmol/L (3.5-5.1)
[2024-11-09 17:51] LABS: Albumin Globulin Ratio 1.2 (0.9-2); BUN Creatinine Ratio 40.5 (10-20); Creatinine Clr Calc Pharmacy 107.6 ml/min; Globulin 2.5 gm/dl (2.5-4.0); Total Protein 5.6 gm/dl (6.0-8.3)
[2024-11-09] MEDS: LACTATED RINGER'S 1,000 ML IV SCH (18:40)
[2024-11-09] MEDS: metroNIDAZOLE 500 MG/100 ML BAG IV SCH (18:41)
[2024-11-09 19:17] LABS: Appearance Urine Clear (Clear); Bacteria Urine Automated None Seen (None Seen); Bilirubin Urine Negative (Negative); Blood Urine 3+ (Negative); Cast Urine Automated 0-2 /lpf (0-2); Color Urine Yellow; Epithelial Cell Urine Auto 0-2 /hpf (0-2); Glucose Urine UA 2+ (Negative); Ketones Urine 1+ (Negative); Leukocyte Esterase Urine 1+ (Negative); Nitrite Urine Negative (Negative); Protein Urine 1+ (Negative); RBC Urine Automated 0-2 /hpf (0-2); Specific Gravity Urine 1.025 (1.000-1.030); Urobilinogen Urine Negative (Negative); WBC Urine Automated >50 /hpf (0-5); pH Urine 5.5 (4.5-7.5)
[2024-11-09 19:21] LABS: Hematocrit (blood only) 28.4 % (42.0-52.0); Hemoglobin 9.1 g/dl (14.0-18.0)
[2024-11-09 19:31] LABS: Magnesium 2.1 mg/dl (1.7-2.4); Phosphorus 2.6 mg/dl (2.5-4.9)
[2024-11-09 19:41] LABS: Troponin I High Sensitivity 74.6 pg/ml (0-20)
[2024-11-09] MEDS: STAT IV Infusion **Titration per Protocol STA (19:51)
[2024-11-09] MEDS: ICU Protocol for HYPERglycemia SCH (20:23)
[2024-11-09] MEDS: CALCIUM GLUCONATE 1,000 MG/60 ML BAG IV SCH (20:28)
[2024-11-09] MEDS ORDERED: GLUCOSE 40% GEL 15 GM TUBE PO PRN (20:55)
[2024-11-09] MEDS ORDERED: GLUCOSE 10 TAB/TUBE PO PRN (20:55)
[2024-11-09] MEDS ORDERED: CARBOHYDRATES FOR HYPOGLYCEMIA PO PRN (20:55)
[2024-11-09] MEDS: INSULIN ASPART PER UNIT CHARGE SC SCH (21:06)
[2024-11-09] MEDS: PANTOprazole 40 MG/10 ML SYR IV SCH (21:20)
[2024-11-09 23:27] LABS: Hematocrit (blood only) 28.7 % (42.0-52.0); Hemoglobin 9.2 g/dl (14.0-18.0)
[2024-11-09] MEDS ORDERED: Nursing to Pharmacy Communication SCH (23:30)
--- NOTE | 2024-11-10 00:16 | Ultrasound Report ---
Exam(s): US OTHER US duplex portal hepatic veins EXAM: US Duplex Portal Hepatic Veins CLINICAL HISTORY: Reason for exam: rule out clot. TECHNIQUE: Real-time ultrasound duplex portal hepatic veins with image documentation. COMPARISON: No relevant prior studies available. FINDINGS: The main portal vein, the right and left portal veins are patent. There is hepatopedal flow. No intraluminal thrombus is noted. The visualized portions of the hepatic arteries and veins are patent. No intraluminal thrombi are seen. IMPRESSION: No evidence of hepatic vascular thrombosis. If further evaluation is clinically necessary, consider correlation with a contrast enhanced CT scan. Electronically signed by: Joaquin Saul MD 11/10/24 00:15 AM
[2024-11-10 04:20] LABS: Hematocrit (blood only) 26.4 % (42.0-52.0); Hemoglobin 8.5 g/dl (14.0-18.0); Mean Corpuscular Hemoglobin 27.1 pg (25.0-34.0); Mean Corpuscular Hgb Conc 32.2 g/dL (32.0-36.0); Mean Corpuscular Volume 84.1 fL (80.0-100.0); Mean Platelet Volume 10.4 fL (9.4-12.4); Platelet Count 129 K/uL (130-400); RDW Standard Deviation 49.1 fL (36.4-46.3); Red Blood Count 3.14 M/uL (4.70-6.10); White Blood Count 12.29 K/ul (4.8-10.8)
[2024-11-10 04:40] LABS: BUN Creatinine Ratio 36.6 (10-20); Creatinine Clr Calc Pharmacy 67.4 ml/min; Potassium 3.5 mmol/L (3.5-5.1)
[2024-11-10 04:46] LABS: INR 1.1 (0.9-1.1); Prothrombin Time 12.2 Seconds (9.0-12.0)
[2024-11-10] MEDS: INSULIN ASPART PER UNIT CHARGE SC SCH (05:07)
[2024-11-10 05:22] LABS: iSTAT Art Bld Gas pCO2 Correct 40 mmHg (35-46); iSTAT Art Bld Gas pH Corrected 7.434 (7.35-7.45); iSTAT Arterial Blood Gas HCO3 27 meg/L (19-24); iSTAT Arterial Blood Gas pCO2 39 mmHg (35-46); iSTAT Arterial Blood Gas pH 7.45 (7.35-7.45); iSTAT Arterial Blood Gas pO2 77 mmHg (80-95); iSTAT Arterial Blood Gas pO2 C 82; iSTAT Carbon Dioxide 28 mmol/L (24-31); iSTAT FiO2 30 %; iSTAT Hematocrit 25 % (42-52); iSTAT Hemoglobin 8.5 g/dl (14.0-18.0); iSTAT Potassium 3.3 mmol/L (3.3-5.0); iSTAT Sample Type Arterial; iSTAT Site R Radial; iSTAT Sodium 141 mmol/L (135-144); iSTAT SpO2 98
[2024-11-10] MEDS: ACETAMINOPHEN 1,000 MG/100 ML VIAL IV PRN (06:13)
[2024-11-10] MEDS: POTASSIUM CHLORIDE / WTR 10 MEQ/100 ML PLCT IV SCH (06:46)
--- NOTE | 2024-11-10 08:26 | XRay Report ---
EXAM: XR chest 1V portable CLINICAL HISTORY: Eval lung moon and ETT while intubated. TECHNIQUE: X-ray image of the chest obtained in AP projection. COMPARISON: Prior X-ray dated 11/09/2024. FINDINGS: ETT with tip 5.4 cm above gen. Pulmonary Parenchyma: Stable prominent bilateral parahilar markings. No pulmonary nodules were identified. Left CP angle is obscured likely pleural effusion. Heart and Mediastinum: Cardiomegaly. No mediastinal widening or masses. No hilar or mediastinal lymphadenopathy. Bony Thorax: Bony thorax appears intact without fractures or deformities. Soft Tissues: Soft tissues overlying the chest wall are unremarkable. IMPRESSION: 1. ETT with tip 5.4 cm above gen. 2. Cardiomegaly. 3. Stable prominent bilateral parahilar markings likely congestion. 4. Left CP angle is obscured likely pleural effusion. Electronically signed by Javon Bravo 11-10-2024 08:25 AM
--- NOTE | 2024-11-10 08:41 | Gastroenterology Progress Note ---
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 He had a fairly massive bleed and his hemoglobin is pretty close to admit hemoglobin after two units PRBCs that are documented in chart now. I would continue to observe. Discussed with Dr. Dunn who is planning on extubation today. If he does rebleed he will need to be transferred for TIPS procedure. Admission and Anticipated Discharge Date Admission Date: November 09, 2024 Subjective Still on vent. Hemoglobin 8.5 after peak at 9.2. From the chart he has had two units blood and two units FFP. Still with melenic stools Physical Exam Physical Exam: On vent Results & Data Vital Signs (Past 12 Hours) Vital Signs Temp Pulse Resp BP Pulse Ox O2 Del Method FiO2 11/10/24 08:28 71 11/10/24 07:54 30 11/10/24 07:39 70 22 100 30 11/10/24 06:15 96/51 L 11/10/24 06:09 38.2 C H 70 22 98 Mechanical Vent 11/10/24 06:03 38.2 C H 70 22 98 11/10/24 06:00 97/49 L 11/10/24 06:00 97/49 L 11/10/24 05:51 38.2 C H 70 22 98 Mechanical Vent 11/10/24 05:45 38.1 C H 70 22 11/10/24 05:45 94/48 L 11/10/24 05:45 94/48 L 11/10/24 05:45 94/48 L 11/10/24 05:45 94/48 L 11/10/24 05:24 38.1 C H 69 22 98 11/10/24 05:09 38.0 C H 68 22 98 Mechanical Vent 11/10/24 05:00 88/46 L 11/10/24 04:46 91/49 L 11/10/24 04:46 91/49 L 11/10/24 04:45 38.0 C H 69 22 96 11/10/24 04:36 38.0 C H 70 22 98 Mechanical Vent 11/10/24 04:15 37.9 C H 70 22 99 11/10/24 04:06 37.9 C H 69 22 97 Mechanical Vent 11/10/24 04:00 94/51 L 11/10/24 03:59 30 11/10/24 03:54 37.8 C H 70 22 97 11/10/24 03:51 37.9 C H 69 22 97 Mechanical Vent 11/10/24 03:47 68 22 98 30 11/10/24 03:45 101/52 L 11/10/24 03:45 101/52 L 11/10/24 03:24 37.8 C H 69 22 98 Mechanical Vent 11/10/24 03:15 102/52 L 11/10/24 03:15 102/52 L 11/10/24 03:15 37.8 C H 69 22 11/10/24 03:09 37.8 C H 69 22 98 Mechanical Vent 11/10/24 03:00 103/51 L 11/10/24 03:00 103/51 L 11/10/24 03:00 103/51 L 11/10/24 02:57 37.8 C H 68 22 98 11/10/24 02:48 37.8 C H 68 22 98 Mechanical Vent 11/10/24 02:45 97/51 L 11/10/24 02:42 37.8 C H 67 22 98 11/10/24 02:30 95/50 L Mechanical Vent 11/10/24 02:30 95/50 L 11/10/24 02:30 37.8 C H 68 22 Mechanical Vent 11/10/24 02:15 95/50 L 11/10/24 02:15 95/50 L Mechanical Vent 11/10/24 02:15 37.8 C H 67 22 Mechanical Vent 11/10/24 02:00 93/49 L 11/10/24 02:00 93/49 L 11/10/24 02:00 37.8 C H 68 22 98 Mechanical Vent 11/10/24 01:36 69 22 11/10/24 01:30 113/57 L 11/10/24 01:27 68 22 98 11/10/24 01:24 67 22 99 11/10/24 01:15 105/54 L 11/10/24 01:15 105/54 L 11/10/24 01:06 37.7 C H 68 22 98 11/10/24 01:00 108/54 L 11/10/24 00:57 37.7 C H 68 22 98 11/10/24 00:51 37.7 C H 68 22 98 11/10/24 00:45 109/55 L 11/10/24 00:45 109/55 L 11/10/24 00:45 109/55 L 11/10/24 00:42 37.7 C H 68 22 98 11/10/24 00:30 109/54 L 11/10/24 00:30 37.7 C H 68 22 11/10/24 00:24 37.7 C H 68 22 98 Mechanical Vent 11/10/24 00:15 108/54 L 11/10/24 00:12 37.7 C H 68 22 98 11/10/24 00:03 37.7 C H 68 22 98 11/10/24 00:00 68 11/10/24 00:00 30 11/10/24 00:00 106/52 L 11/10/24 00:00 106/52 L 11/10/24 00:00 106/52 L 11/09/24 23:57 37.7 C H 68 98 11/09/24 23:45 104/53 L 11/09/24 23:45 37.7 C H 67 11/09/24 23:30 111/55 L 11/09/24 23:30 111/55 L 11/09/24 23:27 37.7 C H 70 97 11/09/24 23:24 37.7 C H 69 11/09/24 23:24 114/57 L 11/09/24 23:24 114/57 L 11/09/24 23:24 114/57 L 11/09/24 23:11 116/60 11/09/24 23:11 116/60 11/09/24 23:11 116/60 11/09/24 23:06 37.7 C H 69 98 11/09/24 23:00 37.6 C H 70 22 97 11/09/24 23:00 22 11/09/24 22:57 125/58 L 11/09/24 22:57 125/58 L 11/09/24 22:54 37.6 C H 72 22 98 11/09/24 22:53 138/67 11/09/24 22:53 138/67 11/09/24 22:51 37.6 C H 73 23 98 11/09/24 22:45 37.6 C H 73 23 98 11/09/24 22:36 37.6 C H 75 22 98 11/09/24 22:15 37.5 C 75 22 98 11/09/24 22:10 37.5 C 75 22 102/69 98 11/09/24 22:05 37.5 C 76 19 105/70 98 11/09/24 22:00 37.5 C 75 22 98 Mechanical Vent 11/09/24 21:48 37.5 C 73 22 98 Mechanical Vent 11/09/24 21:27 37.5 C 73 22 98 11/09/24 21:17 36.5 C 73 22 90/63 L 98 11/09/24 21:00 Mechanical Vent 11/09/24 20:47 36.5 C 72 22 95/66 L 98 11/09/24 20:45 37.5 C 71 22 98
[2024-11-10] MEDS: ONDANSETRON INJ 2 MG/ML 2 ML VIAL IV PRN (09:42)
[2024-11-10] MEDS: PROPOFOL BOLUS FROM BAG IV PRN (09:54)
--- NOTE | 2024-11-10 11:08 | Critical Care Progress Note ---
Date of Service November 10, 2024 Assessment & Plan (1) Upper GI bleed: (2) Cirrhosis: (3) Right inguinal hernia: (4) ALICE (obstructive sleep apnea): (5) Diabetes mellitus type 2, controlled: (6) Shock circulatory: (7) Elevated troponin: (8) Sepsis: (9) Aspiration pneumonia: (10) Esophageal varices determined by endoscopy: (11) Duodenal ulcer: Plan Reason Critically Ill: 64-year-old male present to the hospital for dizziness and fatigue Past medical history: ALICE, hypertension, diabetes type 2 In the ED patient was found to have melena, low blood pressure responded to fluid. Neuro - [facility] ICU: Negative Propofol and fentanyl for sedation and anesthesia respectively Cardiac - --Hypotension in the OR Requiring pushes of vasopressors --Elevated troponin Likely type II [place] Continue to trend EKG 11/09/2024, 10:11 AM: Sinus tachycardia, left axis deviation, LVH, no ST-T wave changes appreciated Respiratory - -- Intubated for OR for airway protection from hematemesis Continue with ventilatory support Keep RASS -1 Daily sedation holidays and SBT's Respiratory BioFire negative for everything on 11/09/2024 --Mild ALICE Polysomnography 11/11/2022: AHI 8.2 GI - -- Acute upper GI bleeding with history of liver cirrhosis Elevated BUN On octreotide and pantoprazole drip Doppler of the portal veins was negative for clot on 11/09/2024 GI on board -- Mild elevation of bilirubin Normal AST and ALT RENAL/LYTES - -- CM Monitor BUN/creatinine Avoid nephrotoxic medications Strict ins and outs ENDO - -- Diabetes type 2 ICU hyperglycemia protocol HEME - -- Acute blood loss anemia Likely upper GI bleed 2 units of PRBC on 11/09/2024 along with 2 units of FFP Monitor H&H, transfuse for hemoglobin less than 8 ID - --Aspiration pneumonia Appreciated on the repeat chest x-ray after intubation For variceal bleed usually Rocephin is recommended which will be given to the patient, will add Flagyl to the regimen --Prophylaxis VTE: IPC GI: Pantoprazole Lines: Peripheral Diet: N.p.o. Plan: In/out: +1.9 L, urine output 2010 mL Chest x-ray from today shows improvement compared to 11/09/2024, minimal patchy opacities still persist especially on the left side. Case was discussed in person with Dr. Cartwright, GI. If there is any drop in hemoglobin then no intervention from GI they would recommend the patient to be transferred for TIPS to a tertiary center. His hemoglobin was 8.5 today even though he got 2 units of PRBC yesterday. Will monitor H&H every 4 hours. If his hemoglobin is trending down then patient will be transferred out. Original plan was to extubate the patient but during the SBT trial he started to throw up dark brown/black with clots in it. Plan for SBT was put on hold. Will get OGT placed and put it to suction. Continue with octreotide for minimum of 48 hours Continue with pantoprazole IV twice daily Monitor H&H, transfuse if hemoglobin less than 8 as per GI recommendations Doppler of the portal veins to make sure there is no portal vein thrombosis Potassium being replaced Continue with antibiotics for aspiration pneumonia as well as prophylaxis for variceal bleed Case was discussed with patient's son Juve on the phone I have personally spent 39 minutes of critical care time in the direct management of this patient. This is a life/limb threatening event. This includes time spent evaluating patient, direct bedside care, chart review, placing orders, interpretation of diagnostic studies, discussion with consultants, patient, and family members, as well as other required patient management activities. This time is exclusive of all separately billable procedures, and teaching time and separate from and in addition to any other critical care service time. Admission and Anticipated Discharge Date Admission Date: November 09, 2024 Subjective Patient seen and examined at bedside. No acute distress, no adverse events overnight He was on 0.05 of Levophed, 20 of propofol and 75 of fentanyl He was RASS -2, he did open his eyes on calling his name but did not track or follow any commands Spiking fever 38 C Review of Systems 2 Review of Systems: All systems reviewed & are unremarkable except as noted in Subjective Physical Exam 2 Physical Exam: Constitutional: No acute distress HEENT: PERRLA Respiratory system: Decreased air entry bilaterally, no wheeze, rhonchi, mild crackles bilateral lower lobes CVS: S1-S2 positive, no murmurs or gallops Abdomen: Soft, nontender, nondistended, positive bowel sounds x4, obese Extremities: +2 pulses bilaterally radialis/ dorsalis pedis, no cyanosis, +1 pitting edema bilateral lower extremity Neuro: RASS -2, Breathing with the vent Psych: Unable to assess G/U: Positive Ross Skin: no rashes, warm and dry Lymphatic: no cervical or axillary lymphadenopathy Results & Data Results & Data Vital Signs (Past 12 Hours) Vital Signs Temp Pulse Resp BP Pulse Ox O2 Del Method FiO2 11/10/24 09:48 79 25 H 94 30 11/10/24 09:20 75 20 96 30 11/10/24 09:15 122/63 11/10/24 09:15 38.0 C H 75 23 98 11/10/24 09:03 38.0 C H 70 22 99 11/10/24 09:01 105/55 L 11/10/24 08:51 38.0 C H 68 22 99 11/10/24 08:30 38.1 C H 69 22 100 11/10/24 08:28 71 11/10/24 08:15 92/49 L 11/10/24 08:03 38.2 C H 68 22 99 11/10/24 08:00 96/50 L 11/10/24 07:54 30 11/10/24 07:45 38.2 C H 68 22 98 11/10/24 07:45 96/49 L 11/10/24 07:40 Mechanical Vent 11/10/24 07:39 70 22 100 30 11/10/24 07:30 99/51 L 11/10/24 07:30 99/51 L 11/10/24 07:30 38.2 C H 70 22 11/10/24 07:15 103/52 L 11/10/24 07:12 38.2 C H 70 22 98 11/10/24 07:00 103/49 L 11/10/24 07:00 38.2 C H 71 22 98 11/10/24 06:45 98/51 L 11/10/24 06:15 96/51 L 11/10/24 06:09 38.2 C H 70 22 98 Mechanical Vent 11/10/24 06:03 38.2 C H 70 22 98 11/10/24 06:00 97/49 L 11/10/24 06:00 97/49 L 11/10/24 05:51 38.2 C H 70 22 98 Mechanical Vent 11/10/24 05:45 38.1 C H 70 22 11/10/24 05:45 94/48 L 11/10/24 05:45 94/48 L 11/10/24 05:45 94/48 L 11/10/24 05:45 94/48 L 11/10/24 05:24 38.1 C H 69 22 98 11/10/24 05:09 38.0 C H 68 22 98 Mechanical Vent 11/10/24 05:00 88/46 L 11/10/24 04:46 91/49 L 11/10/24 04:46 91/49 L 11/10/24 04:45 38.0 C H 69 22 96 11/10/24 04:36 38.0 C H 70 22 98 Mechanical Vent 11/10/24 04:15 37.9 C H 70 22 99 11/10/24 04:06 37.9 C H 69 22 97 Mechanical Vent 11/10/24 04:00 94/51 L 11/10/24 03:59 30 11/10/24 03:54 37.8 C H 70 22 97 11/10/24 03:51 37.9 C H 69 22 97 Mechanical Vent 11/10/24 03:47 68 22 98 30 11/10/24 03:45 101/52 L 11/10/24 03:45 101/52 L 11/10/24 03:24 37.8 C H 69 22 98 Mechanical Vent 11/10/24 03:15 102/52 L 11/10/24 03:15 102/52 L 11/10/24 03:15 37.8 C H 69 22 11/10/24 03:09 37.8 C H 69 22 98 Mechanical Vent 11/10/24 03:00 103/51 L 11/10/24 03:00 103/51 L 11/10/24 03:00 103/51 L 11/10/24 02:57 37.8 C H 68 22 98 11/10/24 02:48 37.8 C H 68 22 98 Mechanical Vent 11/10/24 02:45 97/51 L 11/10/24 02:42 37.8 C H 67 22 98 11/10/24 02:30 95/50 L Mechanical Vent 11/10/24 02:30 95/50 L 11/10/24 02:30 37.8 C H 68 22 Mechanical Vent 11/10/24 02:15 95/50 L 02/01/25 02:15 95/50 L Mechanical Vent 11/10/24 02:15 37.8 C H 67 22 Mechanical Vent 11/10/24 02:00 93/49 L 11/10/24 02:00 93/49 L 11/10/24 02:00 37.8 C H 68 22 98 Mechanical Vent 11/10/24 01:36 69 22 11/10/24 01:30 113/57 L 11/10/24 01:27 68 22 98 11/10/24 01:24 67 22 99 11/10/24 01:15 105/54 L 11/10/24 01:15 105/54 L 11/10/24 01:06 37.7 C H 68 22 98 11/10/24 01:00 108/54 L 11/10/24 00:57 37.7 C H 68 22 98 11/10/24 00:51 37.7 C H 68 22 98 11/10/24 00:45 109/55 L 11/10/24 00:45 109/55 L 11/10/24 00:45 109/55 L 11/10/24 00:42 37.7 C H 68 22 98 11/10/24 00:30 109/54 L 11/10/24 00:30 37.7 C H 68 11/10/24 00:24 37.7 C H 68 22 98 Mechanical Vent 11/10/24 00:15 108/54 L 11/10/24 00:12 37.7 C H 68 22 98 11/10/24 00:03 37.7 C H 68 22 98 11/10/24 00:00 68 11/10/24 00:00 30 11/10/24 00:00 106/52 L 11/10/24 00:00 106/52 L 11/10/24 00:00 106/52 L 11/09/24 23:57 37.7 C H 68 22 98 11/09/24 23:45 104/53 L 11/09/24 23:45 37.7 C H 67 11/09/24 23:30 111/55 L 11/09/24 23:30 111/55 L 11/09/24 23:27 37.7 C H 70 22 97 11/09/24 23:24 37.7 C H 69 11/09/24 23:24 114/57 L 11/09/24 23:24 114/57 L 11/09/24 23:24 114/57 L 11/09/24 23:11 116/60 11/09/24 23:11 116/60 11/09/24 23:11 116/60 11/09/24 23:06 37.7 C H 69 22 98 Laboratory Results 11/10/24 09:51 11/10/24 04:00 Coding Level of Care Code 34569 CRITICAL CARE 1ST 30-74M Diagnoses Upper GI bleed K92.2 Cirrhosis K74.60 Right inguinal hernia K40.90 ALICE (obstructive sleep apnea) G47.33 Diabetes mellitus type 2, controlled E11.9 Shock circulatory R57.9 Elevated troponin R79.89 Sepsis A41.9 Aspiration pneumonia J69.0 Esophageal varices determined by endoscopy I85.00 Duodenal ulcer K26.9
--- NOTE | 2024-11-10 11:31 | XRay Report ---
EXAM: Radiograph of the Abdomen 1 View INDICATION: Tube placement. TECHNIQUE: Frontal supine view of the abdomen/pelvis. COMPARISON: No relevant prior studies available. FINDINGS: Limitations: None. Gastrointestinal tract: Air scattered throughout non-dilated intestinal loops. Organs: Visualized organ shadows appear grossly normal. Bones/joints: No fracture, erosion or dislocation. Soft tissues: Multiple mildly dilated probable edematous small bowel loops noted throughout the abdomen. There is some air and stool noted in the left colon. Tubes, lines and devices: Nasogastric tube tip in the gastric fundus. IMPRESSION: 1. Lines and tubes as above. 2. Ileus versus early/partial small bowel obstruction. ACT 112: Negative or not required by law. Electronically signed by Juliana Solano 11-10-2024 11:29 AM
[2024-11-10 14:08] LABS: Magnesium 1.9 mg/dl (1.7-2.4); Phosphorus 2.8 mg/dl (2.5-4.9)
[2024-11-10 15:04] LABS: Hemoglobin 8.6 g/dl (14.0-18.0)
--- NOTE | 2024-11-10 15:45 | Hospitalist Progress Note ---
Date of Service November 10, 2024 Assessment & Plan (1) Upper GI bleed: Plan: Eduardo is a 64-year-old male with PMH of T2DM, HTN, ALICE, and gallstones. He presented on 11/09 after being referred from [facility] for dizziness and generalized fatigue. He reports that last night he developed a lower back pain, as well as dry cough, and feeling lightheaded/off-balance. He then woke up and his symptoms felt worse. He endorses intermittent melena over the past few days . No bright red blood in his stool. No recent NSAID use. Presented to the ER with dyspnea. While in the ER had an episode of acute hematemesis, hemodynamic instability, and was transfused 2 units and taken emergently for upper endoscopy. Hemorrhagic shock due to acute GI bleed due to varices EGD 11/09/2024: Grade 3 esophageal varices with stigmata of bleeding. Completely eradicated. Banded. Hematin present in gastric body, unable to visualize fundus due to clot burden. Nonbleeding duodenal ulcer. Portal hypertensive gastropathy was seen. GI following. Recommended continued intubation postprocedure. Continue on octreotide, Rocephin, PPI push twice daily. Trend CBC and transfuse to threshold of 8. Recommend ultrasound to evaluate for PVC/HCC. Admitted to the ICU. SBT aborted due to recurrent emesis with dark brown/black material. Suboptimal rise despite multiple units of transfusion. If hemoglobin continues to trend down especially given recurrent emesis will need to be transferred to tertiary care for TIPS and further care. At last recheck hemoglobin is uptrending, monitoring continued in ICU. Appreciate recommendations and care Patient has been on 0.05 mcg/kg/min - 0.08 mg/kg/min Levophed due to acute hemorrhagic shock. Liver cirrhosis CTA/P 09/11/2024: Nodular liver consistent with cirrhosis. Portal vein ultrasound: No evidence of hepatic vascular thrombosis. - Management of variceal bleeding as above. If rebleeding worsening --> xfer for TIPS - Mild transaminitis suspect shock liver 11/10. CMP trended ? Aspiration pneumonia Rocephin/Flagyl continued Ileus versus partial small bowel obstruction Noted on KUB, in setting of critical illness - BS diminished but intact - Follow clinically, repeat KUB as needed Demand ischemia Troponin elevated, no chest pain on admission. 2/2 Demand due to hypotension from hemorrhagic shock Type II DM ICU hypoglycemia protocol Goal [id number] [id number] Disposition: ICU Full code N.p.o. (2) Cirrhosis: (3) Diabetes mellitus type 2, controlled: Admission and Anticipated Discharge Date Admission Date: November 09, 2024 Subjective History and physical was admitted by ETT. Patient remains intubated, sedated SBT trial aborted due to recurrent emesis with dark brown/black material Physical Exam Physical Exam: General: ETT in place HEENT: Atraumatic, normocephalic. Pulm: Symmetrical chest rise. No increased work of breathing. No respiratory distress. Cardiac: RRR, -mrg. Radial pulses intact and symmetrical. Abdominal: Nondistended. Soft Results & Data Results & Data Vital Signs (Past 12 Hours) Vital Signs Temp Pulse Resp BP Pulse Ox O2 Del Method FiO2 11/10/24 12:16 30 11/10/24 12:15 117/52 L 11/10/24 12:12 38.0 C H 71 22 97 11/10/24 12:06 38.0 C H 70 22 98 11/10/24 12:00 119/54 L 11/10/24 11:45 38.0 C H 69 22 100 11/10/24 11:15 104/53 L 11/10/24 11:15 38.0 C H 70 22 11/10/24 11:03 38.0 C H 69 22 97 11/10/24 11:00 103/57 L 11/10/24 10:57 38.0 C H 70 22 97 11/10/24 10:45 94/51 L 11/10/24 10:42 38.1 C H 70 16 97 11/10/24 10:30 105/57 L 11/10/24 10:21 38.1 C H 74 22 96 11/10/24 10:15 38.1 C H 75 22 97 11/10/24 10:15 111/60 11/10/24 10:00 112/56 L 11/10/24 10:00 38.1 C H 77 22 95 11/10/24 09:48 98/47 L 11/10/24 09:48 38.0 C H 79 20 94 11/10/24 09:48 79 25 H 94 30 11/10/24 09:46 101/53 L 11/10/24 09:40 149/73 H 11/10/24 09:30 104/65 11/10/24 09:21 37.9 C H 87 21 96 11/10/24 09:20 75 20 96 30 11/10/24 09:15 122/63 11/10/24 09:15 38.0 C H 75 23 98 11/10/24 09:03 38.0 C H 70 22 99 11/10/24 09:01 105/55 L 11/10/24 08:51 38.0 C H 68 22 99 11/10/24 08:30 38.1 C H 69 22 100 11/10/24 08:28 71 11/10/24 08:15 92/49 L 11/10/24 08:03 38.2 C H 68 22 99 11/10/24 08:00 96/50 L 11/10/24 07:54 30 11/10/24 07:45 38.2 C H 68 22 98 11/10/24 07:45 96/49 L 11/10/24 07:40 Mechanical Vent 11/10/24 07:39 70 22 100 30 11/10/24 07:30 99/51 L 11/10/24 07:30 99/51 L 11/10/24 07:30 38.2 C H 70 22 11/10/24 07:15 103/52 L 11/10/24 07:12 38.2 C H 70 22 98 11/10/24 07:00 103/49 L 11/10/24 07:00 38.2 C H 71 22 98 11/10/24 06:45 98/51 L 11/10/24 06:15 96/51 L 11/10/24 06:09 38.2 C H 70 22 98 Mechanical Vent 11/10/24 06:03 38.2 C H 70 22 98 11/10/24 06:00 97/49 L 11/10/24 06:00 97/49 L 11/10/24 05:51 38.2 C H 70 22 98 Mechanical Vent 11/10/24 05:45 38.1 C H 70 22 11/10/24 05:45 94/48 L 11/10/24 05:45 94/48 L 11/10/24 05:45 94/48 L 11/10/24 05:45 94/48 L 11/10/24 05:24 38.1 C H 69 22 98 11/10/24 05:09 38.0 C H 68 22 98 Mechanical Vent 11/10/24 05:00 88/46 L 11/10/24 04:46 91/49 L 11/10/24 04:46 91/49 L 11/10/24 04:45 38.0 C H 69 22 96 11/10/24 04:36 38.0 C H 70 22 98 Mechanical Vent 11/10/24 04:15 37.9 C H 70 22 99 11/10/24 04:06 37.9 C H 69 22 97 Mechanical Vent 11/10/24 04:00 94/51 L 11/10/24 03:59 30 11/10/24 03:54 37.8 C H 70 22 97 11/10/24 03:51 37.9 C H 69 22 97 Mechanical Vent 11/10/24 03:47 68 22 98 30 11/10/24 03:45 101/52 L 11/10/24 03:45 101/52 L PG Care Time/CCT Total # of Minutes Spent Total Time Spent with Patient: Total time spent is greater than 50% in coordination of care (as documented) at patient's floor/unit and/or counseling patient: Coding Level of Care Code 28900 SUB INP/OBS CARE 11/03MIN Diagnoses Upper GI bleed K92.2 Cirrhosis K74.60 Diabetes mellitus type 2, controlled E11.9
[2024-11-10] MEDS ORDERED: cefTRIAXone SODIUM 1,000 MG/50 ML BAG IV SCH (16:15)
[2024-11-10] MEDS: cefTRIAXone SODIUM 2,000 MG/50 ML BAG IV SCH (16:36)
[2024-11-11 06:57] LABS: Basophils % (auto) 0.9 %; Eosinophils # (auto) 0.27 K/uL (0.00-0.50); Eosinophils % (auto) 2.3 %; Hematocrit (blood only) 27.4 % (42.0-52.0); Hemoglobin 8.6 g/dl (14.0-18.0); Immature Granulocytes % (auto) 0.9 %; Lymphocytes # (auto) 1.46 K/uL (1.20-3.40); Lymphocytes % (auto) 12.7 %; Mean Corpuscular Hemoglobin 26.5 pg (25.0-34.0); Mean Corpuscular Hgb Conc 31.4 g/dL (32.0-36.0); Mean Corpuscular Volume 84.6 fL (80.0-100.0); Mean Platelet Volume 10.4 fL (9.4-12.4); Monocytes # (auto) 1.04 K/uL (0.11-0.59); Neutrophils # (auto) 8.53 K/uL (1.40-6.50); Neutrophils % (auto) 74.2 %; Platelet Count 131 K/uL (130-400); RDW Coefficient of Variation 16.8 % (11.5-14.5); RDW Standard Deviation 50.5 fL (36.4-46.3); Red Blood Count 3.24 M/uL (4.70-6.10)
[2024-11-11 07:12] LABS: Calcium 7.7 mg/dl (8.6-10.3); Creatinine Clr Calc Pharmacy 87.1 ml/min; Magnesium 2.1 mg/dl (1.7-2.4); Phosphorus 2.3 mg/dl (2.5-4.9); Potassium 3.4 mmol/L (3.5-5.1)
[2024-11-11] MEDS ORDERED: POTASSIUM PHOS 3 MMOL/1 ML INFUSION IV STA (08:30)
--- NOTE | 2024-11-11 08:33 | Critical Care Progress Note ---
Date of Service November 11, 2024 Assessment & Plan (1) Upper GI bleed: (2) Cirrhosis: (3) Right inguinal hernia: (4) ALICE (obstructive sleep apnea): (5) Diabetes mellitus type 2, controlled: (6) Shock circulatory: (7) Elevated troponin: (8) Sepsis: (9) Aspiration pneumonia: (10) Esophageal varices determined by endoscopy: (11) Duodenal ulcer: Plan Reason Critically Ill: 64-year-old male present to the hospital for dizziness and fatigue Past medical history: ALICE, hypertension, diabetes type 2 In the ED patient was found to have melena, low blood pressure responded to fluid. Neuro - [facility] ICU: Negative Propofol and fentanyl for sedation and anesthesia respectively Cardiac - -- Shock Combination of sedation as well as aspiration pneumonia Vasopressor support to keep MAP greater than 65 --Elevated troponin Likely type II [place] Continue to trend EKG 11/09/2024, 10:11 AM: Sinus tachycardia, left axis deviation, LVH, no ST-T wave changes appreciated Respiratory - -- Intubated for OR for airway protection from hematemesis Continue with ventilatory support Keep RASS -1 Daily sedation holidays and SBT's Respiratory BioFire negative for everything on 11/09/2024 --Mild ALICE Polysomnography 11/11/2022: AHI 8.2 GI - -- Acute upper GI bleeding with history of liver cirrhosis Elevated BUN On octreotide and pantoprazole drip Doppler of the portal veins was negative for clot on 11/09/2024 GI on board, If there is any drop in hemoglobin then no intervention from GI they would recommend the patient to be transferred for TIPS to a tertiary center. -- Mild elevation of bilirubin Normal AST and ALT RENAL/LYTES - -- CM --> improved Monitor BUN/creatinine Avoid nephrotoxic medications Strict ins and outs ENDO - -- Diabetes type 2 ICU hyperglycemia protocol HEME - -- Acute blood loss anemia Likely upper GI bleed 2 units of PRBC on 11/09/2024 along with 2 units of FFP Monitor H&H, transfuse for hemoglobin less than 8 ID - --Aspiration pneumonia Appreciated on the repeat chest x-ray after intubation For variceal bleed usually Rocephin is recommended which will be given to the patient, will add Flagyl to the regimen --Prophylaxis VTE: IPC GI: Pantoprazole Lines: Peripheral Diet: N.p.o. Plan: In/out: -88 mL, urine output 2150 Potassium and phosphorus being replaced OGT draining 300 mL in the last 12 hours. No bowel movement for 36 hours. Repeat KUB from today showed improvement in the ileus. SBT with trial of extubation Discontinue octreotide later today Continue with antibiotics for aspiration pneumonia as well as prophylaxis for variceal bleed Case was discussed with patient's son Juve on the phone I have personally spent 35 minutes of critical care time in the direct management of this patient. This is a life/limb threatening event. This includes time spent evaluating patient, direct bedside care, chart review, placing orders, interpretation of diagnostic studies, discussion with consultants, patient, and family members, as well as other required patient management activities. This time is exclusive of all separately billable procedures, and teaching time and separate from and in addition to any other critical care service time. Admission and Anticipated Discharge Date Admission Date: November 09, 2024 Subjective Patient seen and bedside. No acute distress, notable for night OGT output was 300 mL in the last 12 hours Was on propofol 20, fentanyl 25 the time of examination Levophed 0.03 Tmax 39.2 overnight. No bowel movement Review of Systems 2 Review of Systems: All systems reviewed & are unremarkable except as noted in Subjective and Unobtainable due to endotracheal tube Physical Exam 2 Physical Exam: Constitutional: No acute distress HEENT: PERRLA Respiratory system: Decreased air entry bilaterally, no wheeze, rhonchi, positive crackles bilateral lower lobes CVS: S1-S2 positive, no murmurs or gallops Abdomen: Soft, nontender, nondistended, positive bowel sounds x4, obese Extremities: +2 pulses bilaterally radialis/ dorsalis pedis, no cyanosis, +1 pitting edema bilateral lower extremity Neuro: RASS -1, Breathing over the vent, following simple commands Psych: Unable to assess G/U: Positive Ross Skin: no rashes, warm and dry Lymphatic: no cervical or axillary lymphadenopathy Results & Data Results & Data Vital Signs (Past 12 Hours) Vital Signs Temp Pulse Resp BP Pulse Ox FiO2 11/11/24 06:30 37.9 C H 64 22 99 11/11/24 06:00 38.0 C H 65 22 100 11/11/24 05:33 38.2 C H 66 22 98 11/11/24 05:00 38.6 C H 68 22 99 02/02/25 05:00 133/58 L 11/11/24 05:00 133/58 L 11/11/24 04:33 38.6 C H 70 22 98 11/11/24 04:06 38.6 C H 70 22 98 11/11/24 04:00 137/58 L 11/11/24 04:00 30 11/11/24 03:54 38.6 C H 70 22 97 11/11/24 03:12 70 22 97 30 11/11/24 03:00 134/56 L 11/11/24 03:00 38.5 C H 71 22 98 11/11/24 02:03 38.5 C H 69 22 98 11/11/24 02:00 123/54 L 11/11/24 01:57 38.5 C H 70 22 98 11/11/24 01:18 38.5 C H 70 22 98 11/11/24 01:00 130/54 L 11/11/24 01:00 130/54 L 11/11/24 00:57 38.5 C H 69 22 98 11/11/24 00:06 38.5 C H 68 22 98 11/11/24 00:00 121/53 L 11/11/24 00:00 30 11/10/24 23:57 38.5 C H 70 22 98 11/10/24 23:15 70 22 98 30 11/10/24 23:09 38.4 C H 69 22 98 11/10/24 23:00 129/59 L 11/10/24 22:42 38.4 C H 70 22 97 11/10/24 22:03 38.3 C H 68 22 97 11/10/24 22:00 119/51 L 11/10/24 22:00 119/51 L 11/10/24 21:54 38.4 C H 67 12 98 11/10/24 21:38 133/54 L 11/10/24 21:36 38.3 C H 68 22 99 11/10/24 21:03 38.2 C H 68 22 99 11/10/24 21:00 130/53 L 11/10/24 20:57 38.2 C H 70 22 99 11/10/24 20:45 38.2 C H 68 22 99 Laboratory Results 11/11/24 06:26 11/11/24 06:26 Coding Level of Care Code 02478 CRITICAL CARE 1ST 30-74M Diagnoses Upper GI bleed K92.2 Cirrhosis K74.60 Right inguinal hernia K40.90 ALICE (obstructive sleep apnea) G47.33 Diabetes mellitus type 2, controlled E11.9 Shock circulatory R57.9 Elevated troponin R79.89 Sepsis A41.9 Aspiration pneumonia J69.0 Esophageal varices determined by endoscopy I85.00 Duodenal ulcer K26.9
[2024-11-11] MEDS: POTASSIUM PHOSPHATE 15 MMOL in SODIUM CHLORIDE 0.9% 250 ML IV ONE (08:53)
--- NOTE | 2024-11-11 09:09 | Gastroenterology Progress Note ---
Date of Service November 11, 2024 Assessment & Plan (1) UGIB (upper gastrointestinal bleed): Plan: Bleeding seems to have stopped. Suspect ileus related to magnitude of illness. Supposed to get extubated today if all good. Admission and Anticipated Discharge Date Admission Date: November 09, 2024 Subjective Patient still on vent. H/H are stable. KUB yesterday with ileus vs early SBO. Physical Exam Physical Exam: still on vent Results & Data Vital Signs (Past 12 Hours) Vital Signs Temp Pulse Resp BP Pulse Ox FiO2 11/11/24 08:11 62 22 99 30 11/11/24 08:00 30 11/11/24 06:30 37.9 C H 64 22 99 11/11/24 06:00 38.0 C H 65 22 100 11/11/24 05:33 38.2 C H 66 22 98 11/11/24 05:00 38.6 C H 68 22 99 11/11/24 05:00 133/58 L 11/11/24 05:00 133/58 L 11/11/24 04:33 38.6 C H 70 22 98 11/11/24 04:06 38.6 C H 70 22 98 11/11/24 04:00 137/58 L 11/11/24 04:00 30 11/11/24 03:54 38.6 C H 70 22 97 11/11/24 03:12 70 22 97 30 11/11/24 03:00 134/56 L 11/11/24 03:00 38.5 C H 71 22 98 11/11/24 02:03 38.5 C H 69 22 98 11/11/24 02:00 123/54 L 11/11/24 01:57 38.5 C H 70 22 98 11/11/24 01:18 38.5 C H 70 22 98 11/11/24 01:00 130/54 L 11/11/24 01:00 130/54 L 11/11/24 00:57 38.5 C H 69 22 98 11/11/24 00:06 38.5 C H 68 22 98 11/11/24 00:00 121/53 L 11/11/24 00:00 30 11/10/24 23:57 38.5 C H 70 22 98 11/10/24 23:15 70 22 98 30 11/10/24 23:09 38.4 C H 69 22 98 11/10/24 23:00 129/59 L 11/10/24 22:42 38.4 C H 70 22 97 11/10/24 22:03 38.3 C H 68 22 97 11/10/24 22:00 119/51 L 11/10/24 22:00 119/51 L 11/10/24 21:54 38.4 C H 67 12 98 11/10/24 21:38 133/54 L 11/10/24 21:36 38.3 C H 68 22 99
--- NOTE | 2024-11-11 09:28 | XRay Report ---
EXAM: Radiograph of the Abdomen 1 View INDICATION: Evaluate for obstruction. TECHNIQUE: Frontal supine view of the abdomen/pelvis. COMPARISON: 11/10/2024 FINDINGS: Limitations: None. Lower thorax: Stable course infiltrate left lung base. Gastrointestinal tract: Small bowel loops dilated with air no longer present. There is some air in the colon. Organs: Visualized organ shadows appear grossly normal. Bones/joints: No fracture, erosion or dislocation. Soft tissues: No abnormality noted. No radiopaque foreign body noted. Tubes, lines and devices: Nasogastric tube terminates in the gastric body. IMPRESSION: 1. Dilated small bowel loops with air no longer identified. Small amounts of gas noted in the colon. If nasogastric tube output is high, lack of aeration could reflect significant interval third spacing. If additional imaging is clinically warranted, CT would better assess. 2. Coarse left basilar infiltrate could reflect atelectasis. Pneumonia not excluded. 3. Lines and tubes as above. ACT 112: Negative or not required by law. Electronically signed by Juliana Solano 11-11-2024 09:26 AM
--- NOTE | 2024-11-11 16:51 | Hospitalist Progress Note ---
Date of Service November 11, 2024 Assessment & Plan (1) Upper GI bleed: Plan: Eduardo is a 64-year-old male with PMH of T2DM, HTN, ALICE, and gallstones. He presented on 11/09 after being referred from [facility] for dizziness and generalized fatigue. He reports that last night he developed a lower back pain, as well as dry cough, and feeling lightheaded/off-balance. He then woke up and his symptoms felt worse. He endorses intermittent melena over the past few days . No bright red blood in his stool. No recent NSAID use. Presented to the ER with dyspnea. While in the ER had an episode of acute hematemesis, hemodynamic instability, and was transfused 2 units and taken emergently for upper endoscopy. Hemorrhagic shock due to acute GI bleed due to varices EGD 11/09/2024: Grade 3 esophageal varices with stigmata of bleeding. Completely eradicated. Banded. Hematin present in gastric body, unable to visualize fundus due to clot burden. Nonbleeding duodenal ulcer. Portal hypertensive gastropathy was seen. GI following. Recommended continued intubation postprocedure. PPI push twice daily. Octreotide discontinued. Trend CBC and transfuse to threshold of 8. No evidence of portal vein thrombus on ultrasound. Admitted to the ICU. Initial SBT trial deferred due to recurrent emesis, monitored for another day and then was able to be extubated 11/11. Norepinephrine weaned to 0.03. Pressor requirement due to hypovolemic/acute hemorrhagic shock, +/- distributive with aspiration pneumonia; improving. Hemoglobin equivocal, 8.88.6 11/11. If recurrent drop in hemoglobin/bleeding will need transfer for TIPS Continue to follow, appreciate ICU recommendations and care. if hemoglobin is stable, breathing stable following extubation, and vasopressors weaned anticipate possible downgrade in the next day Liver cirrhosis CTA/P 09/11/2024: Nodular liver consistent with cirrhosis. Portal vein ultrasound: No evidence of hepatic vascular thrombosis. - Management of variceal bleeding as above. If rebleeding worsening --> xfer for TIPS - Mild transaminitis suspect shock liver 11/10. CMP trended Fever, suspect aspiration pneumonia T 38.6 overnight, continues to have fevers throughout 11/11. Leukocytosis is downtrending. UA penciling growth MRSA nare negative Rocephin/Flagyl continued for concurrent coverage of GI bleeding with varices and aspiration pneumonia Blood cultures remain negative. Sputum culture light normal flor Ileus versus partial small bowel obstruction Noted on KUB, in setting of critical illness - BS diminished but intact -Repeat KUB improving Demand ischemia Troponin elevated, no chest pain on admission. 2/2 Demand due to hypotension from hemorrhagic shock Type II DM ICU hypoglycemia protocol Goal BSG [id number] Disposition: ICU Full code N.p.o. (2) Cirrhosis: (3) Diabetes mellitus type 2, controlled: Admission and Anticipated Discharge Date Admission Date: November 09, 2024 Subjective Seen at the bedside ceramic saw tender and on afternoon reassessment. Postextubation feels well. Denies fever chills or sweats. Denies dysuria. Denies abdominal pain. Fatigued. Was on Levophed overnight, this was weaned on afternoon reassessment. S/p extubation on afternoon reassessment. No respiratory distress. Physical Exam 2 Physical Exam: General: Alert, oriented. Answers questions appropriately. HEENT: Atraumatic, normocephalic. Vision and hearing grossly intact Pulm: Symmetrical chest rise. No increased work of breathing. No respiratory distress. Abdominal: Nondistended. Soft Results & Data Results & Data Vital Signs (Past 12 Hours) Vital Signs Temp Pulse Resp BP Pulse Ox O2 Del Method FiO2 11/11/24 16:03 81 11/11/24 16:00 152/67 H 11/11/24 16:00 38.2 C H 81 20 93 Room Air 11/11/24 15:08 37.8 C H 84 20 96 11/11/24 15:01 128/71 11/11/24 14:47 37.8 C H 83 20 95 11/11/24 14:05 37.7 C H 79 17 94 11/11/24 13:08 37.5 C 79 23 100 11/11/24 13:00 146/67 H 11/11/24 12:12 37.6 C H 78 14 98 11/11/24 12:08 150/69 H 11/11/24 11:32 109/58 L 11/11/24 11:27 37.7 C H 76 17 97 11/11/24 11:00 134/59 L 11/11/24 10:10 71 95 11/11/24 10:00 125/55 L 11/11/24 09:57 37.9 C H 74 17 95 11/11/24 09:03 37.8 C H 71 24 90 11/11/24 09:01 107/54 L 11/11/24 09:01 107/54 L 11/11/24 08:54 37.8 C H 63 22 98 11/11/24 08:33 37.8 C H 64 22 98 11/11/24 08:11 62 22 99 30 11/11/24 08:00 Mechanical Vent 11/11/24 08:00 63 11/11/24 08:00 111/57 L 11/11/24 08:00 30 11/11/24 07:57 37.7 C H 62 22 99 11/11/24 07:21 37.8 C H 63 22 98 11/11/24 07:00 109/53 L 11/11/24 06:30 37.9 C H 64 22 99 11/11/24 06:00 38.0 C H 65 22 100 11/11/24 05:33 38.2 C H 66 22 98 11/11/24 05:00 38.6 C H 68 22 99 11/11/24 05:00 133/58 L 11/11/24 05:00 133/58 L PG Care Time/CCT Total # of Minutes Spent Total Time Spent with Patient: Total time spent is greater than 50% in coordination of care (as documented) at patient's floor/unit and/or counseling patient: Coding Level of Care Code 92694 SUB INP/OBS CARE 11/03MIN Diagnoses Upper GI bleed K92.2 Cirrhosis K74.60 Diabetes mellitus type 2, controlled E11.9
[2024-11-11] MEDS: ACETAMINOPHEN 325 MG TAB PO PRN (21:44)
[2024-11-12 04:48] LABS: BUN Creatinine Ratio 30.1 (10-20); Calcium 7.6 mg/dl (8.6-10.3); Magnesium 2.2 mg/dl (1.7-2.4); Phosphorus 2.3 mg/dl (2.5-4.9); Potassium 3.5 mmol/L (3.5-5.1)
[2024-11-12 05:14] LABS: Basophils # (auto) 0.03 K/uL (0.00-0.20); Basophils % (auto) 0.7 %; Eosinophils # (auto) 0.13 K/uL (0.00-0.50); Hematocrit (blood only) 24.5 % (42.0-52.0); Hemoglobin 7.6 g/dl (14.0-18.0); Howell-Jolly Bodies 1+; Immature Granulocytes # (auto) 0.02 K/uL (0.01-0.20); Immature Granulocytes % (auto) 0.5 %; Lymphocytes # (auto) 0.67 K/uL (1.20-3.40); Lymphocytes % (auto) 15.5 %; Mean Corpuscular Hemoglobin 27.2 pg (25.0-34.0); Mean Corpuscular Volume 87.8 fL (80.0-100.0); Mean Platelet Volume 11.1 fL (9.4-12.4); Monocytes # (auto) 0.31 K/uL (0.11-0.59); Monocytes % (auto) 7.2 %; Neutrophils # (auto) 3.16 K/uL (1.40-6.50); Neutrophils % (auto) 73.1 %; Platelet Count 73 K/uL (130-400); Platelet Estimate Decreased (Normal); Polychromasia 1+; RDW Coefficient of Variation 16.8 % (11.5-14.5); Red Blood Count 2.79 M/uL (4.70-6.10); White Blood Count 4.32 K/ul (4.8-10.8)
[2024-11-12] MEDS ORDERED: Nursing to Pharmacy Communication SCH (07:30)
[2024-11-12 11:17] LABS: Hematocrit (blood only) 26.9 % (42.0-52.0); Hemoglobin 8.5 g/dl (14.0-18.0); Mean Corpuscular Hemoglobin 27.7 pg (25.0-34.0); Mean Corpuscular Hgb Conc 31.6 g/dL (32.0-36.0); Mean Corpuscular Volume 87.6 fL (80.0-100.0); Mean Platelet Volume 10.7 fL (9.4-12.4); Platelet Count 82 K/uL (130-400); RDW Coefficient of Variation 17.1 % (11.5-14.5); RDW Standard Deviation 51.6 fL (36.4-46.3); Red Blood Count 3.07 M/uL (4.70-6.10); White Blood Count 5.19 K/ul (4.8-10.8)
[2024-11-12 11:18] LABS: Basophils # (auto) 0.04 K/uL (0.00-0.20); Basophils % (auto) 0.8 %; Eosinophils # (auto) 0.18 K/uL (0.00-0.50); Eosinophils % (auto) 3.5 %; Immature Granulocytes # (auto) 0.04 K/uL (0.01-0.20); Immature Granulocytes % (auto) 0.8 %; Lymphocytes # (auto) 0.66 K/uL (1.20-3.40); Lymphocytes % (auto) 12.7 %; Monocytes # (auto) 0.63 K/uL (0.11-0.59); Monocytes % (auto) 12.1 %; Neutrophils # (auto) 3.64 K/uL (1.40-6.50); Neutrophils % (auto) 70.1 %
[2024-11-12] MEDS: INSULIN ASPART PER UNIT CHARGE SC SCH (12:14)
--- NOTE | 2024-11-12 12:27 | Hospitalist Progress Note ---
Date of Service November 12, 2024 Assessment & Plan (1) Upper GI bleed: Plan: Eduardo is a 64-year-old male with PMH of T2DM, HTN, ALICE, and gallstones. He presented on 11/09 after being referred from [facility] for dizziness and generalized fatigue. He reports that last night he developed a lower back pain, as well as dry cough, and feeling lightheaded/off-balance. He then woke up and his symptoms felt worse. He endorses intermittent melena over the past few days . No bright red blood in his stool. No recent NSAID use. Presented to the ER with dyspnea. While in the ER had an episode of acute hematemesis, hemodynamic instability, and was transfused 2 units and taken emergently for upper endoscopy. Hemorrhagic shock due to acute GI bleed due to varices, improved EGD 11/09/2024: Grade 3 esophageal varices with stigmata of bleeding. Completely eradicated. Banded. Hematin present in gastric body, unable to visualize fundus due to clot burden. Nonbleeding duodenal ulcer. Portal hypertensive gastropathy was seen. GI following. Recommended continued intubation postprocedure. PPI push twice daily. Octreotide discontinued. Trend CBC and transfuse to threshold of 8. No evidence of portal vein thrombus on ultrasound. Admitted to the ICU. Initial SBT trial deferred due to recurrent emesis, monitored for another day and then was able to be extubated 11/11. Hemoglobin repeat stable. - PPI BID continued - SBP PPx continued Liver cirrhosis CTA/P 09/11/2024: Nodular liver consistent with cirrhosis. Portal vein ultrasound: No evidence of hepatic vascular thrombosis. - Management of variceal bleeding as above. If rebleeding/worsened H&H--> eval for repeat EGD and xfer for TIPS - Mild transaminitis suspect shock liver 11/10. LFTs added to a.m. labs Fever, Suspected UTI, ddx includes asp PNA Afebrile since midnight 11/12, although multiple fevers up to 3839 in the preceding 48 hours MRSA nare negative Rocephin/Flagyl continued for concurrent coverage of GI bleeding with varices and aspiration pneumonia Blood cultures remain negative. Sputum culture light normal flor UCx positive for E. facalis. Ampicillin 1g q6h is added for E faecalis UTI treatment. Ciprofloxacin deferred due to repeat EKG with prolonged QT. Continue ceftriaxone given GI bleed with varices and poor ascitic fluid penetration of ampicillin. Ileus versus partial small bowel obstruction Noted on KUB, in setting of critical illness - BS diminished but intact - Repeat KUB improved Demand ischemia Troponin elevated, no chest pain on admission. 2/2 Demand due to hypotension from hemorrhagic shock Type II DM ICU hypoglycemia protocol. Switch to basal bolus weight-based on downgrade continue to hold glipizide Goal BSG [id number] diet Disposition: ICU Full code DM2 diet (2) Cirrhosis: (3) Diabetes mellitus type 2, controlled: Admission and Anticipated Discharge Date Admission Date: November 09, 2024 Subjective Seen at the bedside. Denies fever chills sweats. Denies abdominal pain. Denies shortness of breath. Reviewed with the ICU. Recheck CBC? Diluted draw, repeat is with stable hemoglobin. No clinical signs of rebleeding. Recommend ongoing monitoring for stability. Can likely downgrade later today if doing well. If hemoglobin downtrending or recurrent clinical bleeding that would likely need repeat EGD evaluation for TIPS. Afebrile since midnight, tmax 38.3 last 24 hours. He is covered with ceftriaxone/Rocephin. No urinary symptoms, UCx is pending Physical Exam Physical Exam: General: Alert, oriented. Answers questions appropriately. HEENT: Atraumatic, normocephalic. Vision and hearing grossly intact Pulm: Symmetrical chest rise. Lungs are grossly clear. No increased work of breathing. No respiratory distress. Abdominal: Nondistended. Soft. Minimal tenderness at the right upper quadrant without rebound/guarding, no epigastric tenderness today : Ross in place. Denies pain @ catheter. Results & Data Results & Data Vital Signs (Past 12 Hours) Vital Signs Temp Pulse Resp BP Pulse Ox O2 Del Method 11/12/24 09:20 Room Air 11/12/24 09:01 168/69 H 11/12/24 09:00 37.5 C 80 20 94 Room Air 11/12/24 08:01 165/68 H 11/12/24 07:51 37.3 C 79 22 96 11/12/24 07:16 72 11/12/24 07:00 147/63 H 11/12/24 06:57 37.3 C 77 18 95 11/12/24 06:06 37.4 C 76 19 96 11/12/24 06:00 151/65 H 11/12/24 05:45 37.4 C 78 18 97 11/12/24 05:01 154/75 H 11/12/24 05:01 154/75 H 11/12/24 05:00 37.4 C 79 28 H 94 11/12/24 04:06 37.4 C 78 18 97 11/12/24 03:00 148/68 H 11/12/24 03:00 148/68 H 11/12/24 03:00 37.4 C 76 20 97 11/12/24 02:09 37.4 C 73 17 96 11/12/24 02:00 143/63 H 11/12/24 02:00 143/63 H 11/12/24 01:51 37.4 C 76 20 94 11/12/24 01:01 151/70 H 11/12/24 01:01 151/70 H 11/12/24 01:01 151/70 H 11/12/24 01:00 37.5 C 77 19 94 PG Care Time/CCT Total # of Minutes Spent Total Time Spent with Patient: Total time spent is greater than 50% in coordination of care (as documented) at patient's floor/unit and/or counseling patient: Coding Level of Care Code 35446 SUB INP/OBS CARE 3/50MIN Diagnoses Upper GI bleed K92.2 Cirrhosis K74.60 Diabetes mellitus type 2, controlled E11.9
[2024-11-12] MEDS ORDERED: AMPICILLIN 1,000 MG in SODIUM CHLOR 0.9% MINI-B 100 ML IV SCH (13:30)
--- NOTE | 2024-11-12 14:01 | Communication Note ---
Date of Service: November 12, 2024 Resuming GI service on 11/12/2024. This patient underwent an EGD with banding on 11/09/24 due to his grade 3 bleeding esophageal varices. Bleeding has seemed to stop as of 12/04. H/H 8.5/26.9. He continues on IV PPI therapy. He was previously on Octreotide. He continues antibiotic therapy with Ceftriaxone & Metronidazole. If he re-bleeds, he will require emergent transfer to a tertiary center for TIPS. Will need close follow-up with a coil shaper upon discharge. Please contact GI with any further questions/concerns.
[2024-11-12] MEDS: AMPICILLIN 2,000 MG in SODIUM CHLOR 0.9% MINI-B 100 ML IV SCH (14:04)
[2024-11-12] MEDS: nadoloL 40 MG TAB PO SCH (15:16)
--- NOTE | 2024-11-12 15:27 | Critical Care Progress Note ---
Date of Service November 12, 2024 Assessment & Plan (1) Upper GI bleed: (2) Cirrhosis: (3) Right inguinal hernia: (4) ALICE (obstructive sleep apnea): (5) Diabetes mellitus type 2, controlled: (6) Shock circulatory: (7) Elevated troponin: (8) Sepsis: (9) Esophageal varices determined by endoscopy: (10) Duodenal ulcer: (11) Thrombocytopenia: Plan Patient clinically improving from a hemorrhagic shock perspective and has not had any signs of rebleeding. Hemoglobin is back to 8.5. Mild thrombocytopenia probably related to mild DIC from GI bleeding. Platelet count does seem to be improving on recheck. Continue antibiotics per hospitalist service for possible UTI and GI prophylaxis in the setting of an acute upper GI bleed with varices. No ascites seen on CT abdomen pelvis. Doubtful of aspiration pneumonia at this time as chest x-ray was fairly unremarkable and patient without any hypoxemia or cough. Continue pantoprazole 40 mg twice daily. Agree with nadolol to help reduce portal venous pressures. Hold chemical DVT prophylaxis at this time. Continue SCDs. Out of bed to chair as able. Continue sliding scale insulin. Outpatient follow-up for liver cirrhosis with GI. Patient stable for downgrade out of ICU to PCU status. ICU transfer orders have been placed. Admission and Anticipated Discharge Date Admission Date: November 09, 2024 Subjective Patient seen and examined this morning. Denies any significant complaints. No headaches, dizziness, abdominal pain, chest pain or shortness of breath. Review of Systems Review of Systems: All systems reviewed & are unremarkable except as noted in HPI & below Physical Exam Physical Exam: Constitutional: Patient appears to be of their stated age. Patient is in no apparent distress. Patient is well-developed. Eyes: Pupils are equal round and reactive to light. Conjunctivae are normal. Anicteric sclera. Ears nose, mouth and throat: Mallampati class 2. Normal posterior oropharynx. Uvula is midline. Neck: Trachea is midline. Visual inspection is normal. Respiratory: Clear to auscultation bilaterally. No use of accessory muscles. No significant clubbing noted. Cardiovascular: Regular rate and rhythm. No murmurs. No edema. Gastrointestinal: Normal bowel sounds, soft, nontender and nondistended. No hepatosplenomegaly noted. Musculoskeletal: No cyanosis. Patient is able to move all extremities. Strength is 5 out of 5 in the upper and lower extremities. Skin: No rashes, warm dry and intact. Neurologic: No obvious focal neurological deficits seen. Psychiatric: Alert and oriented x3 with a euthymic affect. Results & Data Results & Data Vital Signs (Past 12 Hours) Vital Signs Temp Pulse Resp BP Pulse Ox O2 Del Method 11/12/24 12:12 37.5 C 83 23 97 11/12/24 11:00 162/72 H 11/12/24 11:00 37.5 C 76 21 94 11/12/24 10:01 157/70 H 11/12/24 09:42 37.5 C 77 21 93 11/12/24 09:20 Room Air 11/12/24 09:01 168/69 H 11/12/24 09:00 37.5 C 80 20 94 Room Air 11/12/24 08:01 165/68 H 11/12/24 07:51 37.3 C 79 22 96 11/12/24 07:16 72 11/12/24 07:00 147/63 H 11/12/24 06:57 37.3 C 77 18 95 11/12/24 06:06 37.4 C 76 19 96 11/12/24 06:00 151/65 H 11/12/24 05:45 37.4 C 78 18 97 11/12/24 05:01 154/75 H 11/12/24 05:01 154/75 H 11/12/24 05:00 37.4 C 79 28 H 94 11/12/24 04:06 37.4 C 78 18 97 Coding Level of Care Code 91431 SUB INP/OBS CARE 2/35MIN Diagnoses Upper GI bleed K92.2 Cirrhosis K74.60 Right inguinal hernia K40.90 ALICE (obstructive sleep apnea) G47.33 Diabetes mellitus type 2, controlled E11.9 Shock circulatory R57.9 Elevated troponin R79.89 Sepsis A41.9 Esophageal varices determined by endoscopy I85.00 Duodenal ulcer K26.9 Thrombocytopenia D69.6
--- NOTE | 2024-11-12 17:31 | Electrocardiogram Report ---
Test Reason : Blood Pressure : */* mmHG Vent. Rate : 80 BPM Atrial Rate : 80 BPM P-R Int : 186 ms QRS Dur : 144 ms QT Int : 420 ms P-R-T Axes : 59 -45 90 degrees QTcB Int : 484 ms Normal sinus rhythm Left axis deviation Left ventricular hypertrophy with QRS widening and repolarization abnormality Abnormal ECG When compared with ECG of 09-Nov-2024 10:11, No significant change Confirmed by Mp Rodriguez ([id number]) on 11/12/2024 5:30:46 PM Referred By: REFERRED SELF Confirmed By: Mp Rodriguez
[2024-11-13 05:25] LABS: Basophils # (auto) 0.05 K/uL (0.00-0.20); Basophils % (auto) 0.9 %; Eosinophils # (auto) 0.22 K/uL (0.00-0.50); Eosinophils % (auto) 4.1 %; Hematocrit (blood only) 28.9 % (42.0-52.0); Hemoglobin 9.1 g/dl (14.0-18.0); Immature Granulocytes # (auto) 0.03 K/uL (0.01-0.20); Immature Granulocytes % (auto) 0.6 %; Lymphocytes # (auto) 0.75 K/uL (1.20-3.40); Mean Corpuscular Hemoglobin 27.3 pg (25.0-34.0); Mean Corpuscular Hgb Conc 31.5 g/dL (32.0-36.0); Mean Corpuscular Volume 86.8 fL (80.0-100.0); Monocytes # (auto) 0.55 K/uL (0.11-0.59); Monocytes % (auto) 10.3 %; Neutrophils # (auto) 3.74 K/uL (1.40-6.50); Neutrophils % (auto) 70.1 %; Platelet Count 107 K/uL (130-400); RDW Coefficient of Variation 17.2 % (11.5-14.5); RDW Standard Deviation 51.8 fL (36.4-46.3); Red Blood Count 3.33 M/uL (4.70-6.10); White Blood Count 5.34 K/ul (4.8-10.8)
[2024-11-13 05:40] LABS: Albumin Level 3.1 gm/dl (3.4-5.0); BUN Creatinine Ratio 24.7 (10-20); Bilirubin Direct 0.2 mg/dl (0-0.2); Bilirubin,Total 1.1 mg/dl (0.2-1.0); Calcium 7.3 mg/dl (8.6-10.3); Creatinine Clr Calc Pharmacy 100.3 ml/min; Potassium 3.2 mmol/L (3.5-5.1)
[2024-11-13] MEDS: CALCIUM GLUCONATE 1,000 MG/60 ML BAG IV SCH (08:22)
[2024-11-13] MEDS: POTASSIUM CHLORIDE CRTAB 20 MEQ TABCR PO STA (08:22)
[2024-11-13 08:24] LABS: Phosphorus 1.6 mg/dl (2.5-4.9)
[2024-11-13 12:57] LABS: Estimated Average Glucose 169 mg/dl; Hemoglobin A1C 7.5 % (4.5-5.6)
--- NOTE | 2024-11-13 20:32 | Hospitalist Progress Note ---
Date of Service November 13, 2024 Assessment & Plan (1) Upper GI bleed: Plan: Eduardo is a 64-year-old male with PMH of T2DM, HTN, ALICE, and gallstones. He presented on 11/09 after being referred from [facility] for dizziness and generalized fatigue. He reports that last night he developed a lower back pain, as well as dry cough, and feeling lightheaded/off-balance. He then woke up and his symptoms felt worse. He endorses intermittent melena over the past few days . No bright red blood in his stool. No recent NSAID use. Presented to the ER with dyspnea. While in the ER had an episode of acute hematemesis, hemodynamic instability, and was transfused 2 units and taken emergently for upper endoscopy. Hemorrhagic shock due to acute GI bleed due to varices, improved EGD 11/09/2024: Grade 3 esophageal varices with stigmata of bleeding. Completely eradicated. Banded. Hematin present in gastric body, unable to visualize fundus due to clot burden. Nonbleeding duodenal ulcer. Portal hypertensive gastropathy was seen. GI following. Recommended continued intubation postprocedure. PPI push twice daily. Octreotide discontinued. Trend CBC and transfuse to threshold of 8. No evidence of portal vein thrombus on ultrasound. Admitted to the ICU. Initial SBT trial deferred due to recurrent emesis, monitored for another day and then was able to be extubated 11/11. Hemoglobin repeat stable. - PPI BID continued - SBP PPx continued Liver cirrhosis CTA/P 09/11/2024: Nodular liver consistent with cirrhosis. Portal vein ultrasound: No evidence of hepatic vascular thrombosis. - Management of variceal bleeding as above. If rebleeding/worsened H&H--> eval for repeat EGD and xfer for TIPS - Mild transaminitis suspect shock liver 11/10. LFTs added to a.m. labs Fever, Suspected UTI, ddx includes asp PNA Afebrile since midnight 11/12, although multiple fevers up to 3839 in the preceding 48 hours MRSA nare negative Rocephin/Flagyl continued for concurrent coverage of GI bleeding with varices and aspiration pneumonia Blood cultures remain negative. Sputum culture light normal flor UCx positive for E. facalis. Ampicillin 1g q6h is added for E faecalis UTI treatment. Ciprofloxacin deferred due to repeat EKG with prolonged QT. Continue ceftriaxone given GI bleed with varices and poor ascitic fluid penetration of ampicillin. Ileus versus partial small bowel obstruction Noted on KUB, in setting of critical illness - BS diminished but intact - Repeat KUB improved Demand ischemia Troponin elevated, no chest pain on admission. 2/2 Demand due to hypotension from hemorrhagic shock Type II DM ICU hypoglycemia protocol. Switch to basal bolus weight-based on downgrade continue to hold glipizide Goal BSG [id number] diet Disposition: ICU Full code DM2 diet (2) Cirrhosis: (3) Diabetes mellitus type 2, controlled: Admission and Anticipated Discharge Date Admission Date: November 09, 2024 Subjective "I am ok. No complaints today." Review of Systems Review of Systems: Negative for antecedent/coincident fevers, chills, diaphoresis, cough, wheeze, sore throat, hemoptysis, chest pains, palpitations, pleurisy, nausea, vomiting, diarrhea, abdominal pain, pelvic pain, hematemesis, hematochezia, melena, hematuria, dysuria, frequency, urgency, headaches, dizziness, lightheadedness, visual changes, hearing changes, weakness, falls, syncope, trauma, travel history, sick contacts, or food/drug ingestions novel or new. All other review of systems are reported as negative by the patient on 11/13/2024. Physical Exam Physical Exam: General: comfortable, coherent, cooperative. Wide awake and alert. Not confused, lethargic, or obtunded. Patient speaks in complete, fluent, and articulate sentences without pause, interruption, cough, or wheeze. HEENT: NC/AT. EOMI, PERRL. No nystagmus, gaze paresis, anisocoria, miosis, mydriasis, hyphema, chemosis, scleral icterus, conjunctivitis, or pterygium. No otorrhea, no rhinorrhea. No pharyngeal discharge or erythema. Neck: Supple, no stridor, bruit, goiter, or hepatojugular reflux. Jugular venous pressure is estimated to be 8 cm above the sternal angle of Rodriguez, which is typically 5 cm above the level of the right atrium. Hence, there is no jugular venous distention noted on discharge exam 11/13/2024. Lymphatics: No pre-post auricular, anterior/posterior cervical, supraclavicular/infraclavicular, axillary, epitrochlear, or inguinal adenopathy. Chest: Symmetric rise and fall with respirations. Non-tender to palpation. Heart: RRR, S1 and S2 noted. No S3 or S4 summation gallop noted. No tripartite friction rub. Grade II/ early systolic murmur @ LLSB without radiation to the carotids, axilla, or back, and which remains invariant in regards to the respiratory cycle. Lungs: Clear to auscultation and percussion. No audible expiratory wheeze, egophony, pectoriloquy, increase in tactile fremitus, or flatness/dullness to percussion at the bases. Abdomen: Soft, non-tender, non-distended. No rebound, guarding, White's sign, or organomegaly. Bowel sounds auscultated in all 4 quadrants. Extremities: No clubbing, cyanosis, or edema. 2+ pedal pulses bilaterally. Skin: No decubitus ulcer, exanthem, or enanthem. Neurology: Alert and oriented in regards to person, place, time, and situation. DTR+ and symmetric. 5/5 motor strength in all 4 extremities, both proximally and distally. No myoclonus, tremors, or tics. Urology: No frances catheter. No urethral discharge. Psychiatry: Appropriate affect. Smiles occasionally. No homicidal/suicidal ideation. Results & Data Results & Data Vital Signs (Past 12 Hours) Vital Signs Temp Pulse Pulse Resp BP BP Pulse Ox 11/13/24 19:40 37.5 C 11/13/24 19:33 133/70 11/13/24 19:30 11/13/24 19:24 65 21 98 11/13/24 16:17 37.2 C 68 18 161/82 H 94 11/13/24 16:17 68 11/13/24 11:14 37.1 C 65 18 135/62 98 11/13/24 08:30 O2 Del Method 11/13/24 19:40 11/13/24 19:33 11/13/24 19:30 Room Air 11/13/24 19:24 Room Air 11/13/24 16:17 Room Air 11/13/24 16:17 11/13/24 11:14 Room Air 11/13/24 08:30 Room Air PG Care Time/CCT Total # of Minutes Spent Total Time Spent with Patient: Total time spent is greater than 50% in coordination of care (as documented) at patient's floor/unit and/or counseling patient: Coding Level of Care Code 50218 SUB INP/OBS CARE 2/35MIN Diagnoses Upper GI bleed K92.2 Cirrhosis K74.60 Diabetes mellitus type 2, controlled E11.9
[2024-11-14 04:45] LABS: Basophils # (auto) 0.04 K/uL (0.00-0.20); Basophils % (auto) 0.9 %; Eosinophils # (auto) 0.22 K/uL (0.00-0.50); Hematocrit (blood only) 28.8 % (42.0-52.0); Hemoglobin 9.2 g/dl (14.0-18.0); Immature Granulocytes # (auto) 0.06 K/uL (0.01-0.20); Immature Granulocytes % (auto) 1.4 %; Lymphocytes # (auto) 0.81 K/uL (1.20-3.40); Lymphocytes % (auto) 18.5 %; Mean Corpuscular Hemoglobin 27.4 pg (25.0-34.0); Mean Corpuscular Hgb Conc 31.9 g/dL (32.0-36.0); Mean Corpuscular Volume 85.7 fL (80.0-100.0); Mean Platelet Volume 9.9 fL (9.4-12.4); Monocytes # (auto) 0.51 K/uL (0.11-0.59); Monocytes % (auto) 11.7 %; Neutrophils # (auto) 2.73 K/uL (1.40-6.50); Neutrophils % (auto) 62.5 %; Platelet Count 110 K/uL (130-400); RDW Coefficient of Variation 17.4 % (11.5-14.5); RDW Standard Deviation 51.9 fL (36.4-46.3); Red Blood Count 3.36 M/uL (4.70-6.10); White Blood Count 4.37 K/ul (4.8-10.8)
[2024-11-14 05:01] LABS: BUN Creatinine Ratio 22.4 (10-20); Calcium 7.8 mg/dl (8.6-10.3); Magnesium 1.9 mg/dl (1.7-2.4); Phosphorus 1.7 mg/dl (2.5-4.9); Potassium 3.2 mmol/L (3.5-5.1)
[2024-11-14] MEDS ORDERED: POTASSIUM PHOS 3 MMOL/1 ML INFUSION IV STA (07:58)
[2024-11-14] MEDS: POTASSIUM CHLORIDE CRTAB 20 MEQ TABCR PO STA (08:11)
[2024-11-14] MEDS: POTASSIUM PHOS 3 MMOL/1 ML INFUSION IV STA (08:37)
[2024-11-14] MEDS: CALCIUM GLUCONATE 1,000 MG/60 ML BAG IV STA (09:59)
[2024-11-14] MEDS: POTASSIUM PHOSPHATE 30 MMOL in SODIUM CHLORIDE 0.9% 500 ML IV ONE (09:59)
[2024-11-14 12:56] VITALS: PULSE 69; RESP 22; TEMP 99.1; O2SAT 100
--- NOTE | 2024-11-14 15:57 | Discharge Summary ---
Discharge Summary Date of Service November 14, 2024 Principal Dx & Hospital Course #1 = Principal Diagnosis (1) Upper GI bleed: 64 years old male with PMH of FULL CODE @ home, morbid obesity with BMI 43.1 (height 167.6 cm; weight 121.0 kg), ALICE not on CPAP, HTN, gallstones, and ETOH abuse with ETOH-associated nodular cirrhosis (as noted on 09/11/2024 CT abd/pelvis with/without IC contrast) with portal HTN and ETOH-associated esophageal varices, who presented to [facility] ER on 11/09/2024, after being referred from [facility] for complaints of dizziness and generalized fatigue. Patient reported that on 11/08/2024 pm, patient developed lower back pain, as well as dry cough, and feeling lightheaded/off-balance. Patient subsequently woke up and his symptoms worsened. Patient also reported intermittent melena, not hematochezia, over the past few days. Patient also denied recent NSAID use. In [facility] ER, patient reported SOB at rest, and subsequently had an episode of acute hematemesis, hemodynamic instability, and received 2 units of packed RBC transfusion with admission Hb 9.0 g/dL (11/09/2024, 10:18am), and underwent emergent upper endoscopy (11/09/2024, 3:31pm) with GI Dr. Fahad Frias, who reported: - Three columns of grade III varices with stigmata of recent bleeding were found in the lower third of the esophagus. They were large in size. Red navin signs were present. Three bands were successfully placed with complete eradication, resulting in deflation of varices. There was no bleeding during nor at the end of the procedure. - Hematin (altered blood/awcpig-gjdjfy-zxgo material) was found in the gastric body. Lavage of the area was performed using a large amount, resulting in clearance with adequate visualization. Unable to visualize fundus as loads of clots there. - One non-bleeding superficial duodenal ulcer was found in the first portion of the duodenum. The lesion was 4 mm in largest dimension. - Moderate portal hypertensive gastropathy was found in the entire examined stomach. Impression: - Grade III esophageal varices with stigmata of recent bleeding. Completely eradicated. Banded. - Hematin (altered blood/jxcppp-uhmdii-bwvd material) in the gastric body. - Unable to visualize fundus as loads of clots there. - Non-bleeding duodenal ulcer. - Portal hypertensive gastropathy. - No specimens collected. Recommendation: - Discharge patient to home (ambulatory). - Resume previous diet. - Return to primary care physician as previously scheduled. - Patient has a contact number available for emergencies. The signs and symptoms of potential delayed complications were discussed with the patient. Return to normal activities tomorrow. Written discharge instructions were provided to the patient. - Continue present medications. - Plan keep him intubated overnight on octreotide, ceftriaxone daily; can use PPI IV twice daily once lines are addressed. CBC 3 times daily to 4 times daily to keep a hemoglobin of 8. He needs an ultrasound to evaluate for portal vein thrombosis and HCC, send off an alpha-fetoprotein. GI will continue to follow. Patient was subsequently admitted to the inpatient hospitalist service @ [facility] ICU on 11/09/2024 with the following diagnoses: 1. Acute blood loss anemia with an admission Hb 9.0 g/dL, MCV 85.1, MCHC 30.8 (11/09/2024, 10:18am), due to esophageal varices, causing hemodynamic instabili ty. 2. Acute hemorrhagic/hypovolemic shock, due to acute blood loss anemia. 3. Acute hyperkalemia with admission K 5.1 mmol/L (11/09/2024, 3:22pm). 4. Acute hypophosphatemia with post-admission PO4 2.3 mg/dL (11/11/2024, 6:26am)(11/12/2024, 4:06am); post-admission PO4 1.6 mg/dL (11/13/2024, 4:56am). 5. Acute hypocalcemia with post-admission Ca 7.3 mg/dL (11/13/2024, 4:56am), albumin 3.1 g/dL (11/13/2024, 5:15am). 5. Acute hypocalcemia with post-admission Ca 7.8 mg/dL (11/13/2024, 4:04am), albumin 3.1 g/dL (11/13/2024, 4:56am). 6. Acute type II NSTEMI. 7. Acute vancomycin-sensitive, ampicillin-sensitive, ciprofloxacin-sensitive Enterococcus faecalis UTI (as noted on 11/09/2024 urine culture). 8. Chronic portal HTN with esophageal varices. 9. HTN. 10.Non-insulin dependent DM2 with HbA1c 7.5% (11/10/2024, 4:00am). The following medical issues were addressed while the patient remained in [facility] ICU from 11/09/2024 to 11/14/2024: 1. Acute blood loss anemia, due to esophageal varices, causing hemodynamic instability. Patient received emergent banding of esophageal varices (11/09/2024, 3:31pm EGD) with GI Dr. Fahad Frias. Patient also received protonix 40mg IV bid, followed by protonix infusion @ 20mg/min (11/09/2024, 9:00pm), octreotide 50ug IV x 1 dose (11/09/2024, 1:09pm) followed by octreotide infusion @ 50ug/hr (11/09/2024, 1:30pm), ceftriaxone 2g IV daily x 3 doses (starting on 11/09/2024, 1:00pm), norepinephrine 4mg IV x 1 dose (11/09/2024, 2:27pm) followed by norepinephrine infusion @ ug/kg/min (11/09/2024, 5:45pm), and vasopressin 20 units IV x 1 dose (11/09/2024, 3:18pm). Patient also received 2 units of packed RBC transfusion and 2 units of fresh frozen plasma starting on 11/09/2024, 3:00pm, with an admission Hb 9.0 g/dL, MCV 85.1, MCHC 30.8 (11/09/2024, 10:18am); patient had a post-transfusion Hb 9.2 g/dL, MCV 85.0, MCHC 30.8 (11/09/2024, 10:45pm). Patient was subsequently discharged back to his home on 11/14/2024 and his [facility] pharmacy store #[id number] ([address] [place] [id number]) subsequently received an electronic prescription for protonix 40mg PO q12, #60 tablets, no refills, on 11/14/2024, prior to hospital discharge home on 11/14/2024. In addition, patient was advised to hold OFF restarting his home-scheduled ASA 81mg PO daily for at least the next 30 days, and to discuss with his PCP Dr. Logan Reza, if/when patient can ever restart his home-scheduled ASA 81mg PO daily as the risk of from bleeding should patient restart his home- scheduled ASA 81mg PO daily far outweighs the risk of from acute myocardial infarction should patient not restart his home-scheduled ASA 81mg PO daily. 2. Acute hemorrhagic/hypovolemic shock, due to acute blood loss anemia. See bullet #1 above for details. Of note, patient was intubated for airway protection from acute hematemesis on 11/09/2024, 3:43pm, with pre-intubation O2 sat 98% (11/09/2024, 2:18pm), given acute hemorrhagic/hypovolemic shock that warranted pressor support (cf., norepinephrine 4mg IV x 1 dose (11/09/2024, 2:27pm) followed by norepinephrine infusion @ ug/kg/min (11/09/2024, 5:45pm), and vasopressin 20 units IV x 1 dose (11/09/2024, 3:18pm)) to attain/maintain MAP > 65 mm Hg. Patient was subsequently extubated on 11/11/2024, 10:10am. Patient remains hemodynamically stable off pressor support with norepinephrine since 11/10/2024, 9:26am. 3. Acute hyperkalemia with admission K 5.1 mmol/L (11/09/2024, 3:22pm). Most likely lab error as repeat K 4.9 mmol/L (11/09/2024, 4:08pm). Observe. A more plausible electrolyte abnormality was post-hospital admission development of acute hypokalemia with K 3.4 mmol/L (11/11/2024, 6:26am), due to decreased oral intake of potassium-containing foods as patient was NPO/NGT while intubated on 11/09/2024, 3:43pm and extubated on 11/11/2024, 10:10am. Subsequently, acute hypokalemia recurred with repeat K 3.2 mmol/L (11/13/2024, 4:56am)(for which patient received KCl 40meq PO x 1 dose on 11/13/2024, 8:00am) and discharge K 3.2 mmol/L (11/14/2024, 4:04am)(for which patient received KCl 40meq PO x 1 dose on 11/14/2024, 7:43am). Patient was advised to undergo repeat K level testing with his PCP Dr. Logan Reza within 5-7 days of hospital discharge. Patient reports that he will comply with this recommendation. 4. Acute hypophosphatemia with post-admission PO4 2.3 mg/dL (11/11/2024, 6:26am)(11/12/2024, 4:06am); post-admission PO4 1.6 mg/dL (11/13/2024, 4:56am); discharge PO4 1.7 mg/dL (11/14/2024, 4:04am). Etiology of acute hypophosphatemia was probably due to decreased oral intake of phosphorus-containing foods as patient was NPO/NGT while intubated on 11/09/2024, 3:43pm and extubated on 11/11/2024, 10:10am. Subsequently, acute hypophosphatemia persisted as shown above. Patient received KPO4 30mmol IV x 1 dose (11/14/2024, 7:52am), and was advised to undergo repeat PO4 level testing with his PCP Dr. Logan Reza within 5-7 days of hospital discharge. Patient reports that he will comply with this recommendation. 5. Acute hypocalcemia with post-admission Ca 7.3 mg/dL (11/13/2024, 4:56am), albumin 3.1 g/dL (11/13/2024, 5:15am). 5. Acute hypocalcemia with post-admission Ca 7.8 mg/dL (11/13/2024, 4:04am), albumin 3.1 g/dL (11/13/2024, 4:56am). Etiology of acute hypocalcemia was probably due to decreased oral intake of calcium-containing foods as patient was NPO/NGT while intubated on 11/09/2024, 3:43pm and extubated on 11/11/2024, 10:10am. Subsequently, acute hypophosphatemia persisted as shown above. Patient received calcium gluconate 2g IV x 1 dose (11/14/2024, 7:53am), and was advised to undergo repeat Ca level testing with his PCP Dr. Logan Reza within 5-7 days of hospital discharge. Patient reports that he will comply with this recommendation. 6. Acute type II NSTEMI. cf., troponin-I #1 85.5 pg/mL (11/09/2024, 10:18am). cf., troponin-I #2 92.3 pg/mL (11/09/2024, 12:34pm). cf., troponin-I #3 74.6 pg/mL (11/09/2024, 6:50pm). cf., troponin-I #4 111.9 pg/mL (11/10/2024, 12:26am). cf., EKG #1 (11/09/2024, 9:29am): NSR @ 82, W[place] 160, QTC 464, no acute ST depressions/elevations (by my review). cf., EKG #2 (11/09/2024, 10:11am): NSR @ 85, W[place] 174, QTC 478, no acute ST depressions/elevations (by my review). cf., EKG #3 (11/12/2024, 1:01pm): NSR @ 80, W[place] 186, QTC 484, no acute ST depressions/elevations (by my review). Etiology of nominal troponin elevations was probably due to demand ischemia due to acute blood loss anemia, due to esophageal varices, and resulting in acute hemorrhagic/hypovolemic shock, NOT acute type I NSTEMI. Hence, I opted to observe this laboratory anomaly of nominal troponin elevations while patient remained in [facility]. 7. Acute vancomycin-sensitive, ampicillin-sensitive, ciprofloxacin-sensitive Enterococcus faecalis UTI (as noted on 11/09/2024 urine culture). Patient received ampicillin 2g IV q6 x 7 doses (starting on 11/12/2024, 2:00pm); patient will need to continue and complete 5 more days of antibiotics at home; patient's [facility] pharmacy store #[id number] ([address] [place] [address]) subseq uently received an electronic prescription for ciprofloxacin 500mg PO q12, #10 tablets, no refills. Patient reports that he will filler picker this prescription today (11/14/2024) and start taking this antibiotic today (11/14/2024). 8. Chronic portal HTN with esophageal varices. Asymptomatic on nadolol 40mg PO qam while in [facility]. Patient will continue this medication on hospital discharge home on 11/14/2024. Patient's [facility] pharmacy store #[id number] ([address] [place] [address]) subsequently received an electronic prescription for nadolol 40mg PO qam, #30 tablets, no refills. Patient reports that he will filler picker this prescription today (11/14/2024) and start taking this medication tomorrow, 11/15/2024, as he already received this medication in [facility] ICU bed #104 today, 11/14/2024. 9. HTN. Modestly controlled with discharge BP 141/87 (11/14/2024, 12:53pm) off home-scheduled triamterene 37.5mg - HCTZ 25mg PO daily, metoprolol 25mg PO bid, and losartan 40mg PO daily given the potential for any/all of these anti-HTN medications to potentiate acute hemorrhagic/hypovolemic shock. Now that acute hemorrhagic/hypovolemic shock has resolved, patient may resume his home- scheduled losartan 40mg PO daily on hospital discharge home on 11/14/2024, while continuing to hold off home-scheduled triamterene 37.5mg - HCTZ 25mg PO daily for the next 5 days, given potential for this medication to dehydrate patient further in the setting of concomitant acute vancomycin-sensitive, ampicillin- sensitive, ciprofloxacin-sensitive Enterococcus faecalis UTI (as noted on 11/09/2024 urine culture). Patient was also advised to stop taking metoprolol 25mg PO bid permanently as he starts taking nadolol 40mg PO qam on 11/15/2024 to mitigate chronic portal HTN with esophageal varices. Patient reports that he will comply with the recommendations above. 10. Non-insulin dependent DM2 with HbA1c 7.5% (11/10/2024, 4:00am). cf., glucose 290 mg/dL, anion gap 7, CO2 28 (11/09/2024, 10:18am). cf., glucose 137 mg/dL, anion gap 7, CO2 29 (11/14/2024, 4:04am). Patient received a carbohydrate consistent diet, aspart insulin sliding scale qac + qhs, and POC glucose qac + qhs while in [facility]. Patient will continue with carbohydrate consistent diet and POC glucose qac + qhs, but will not continue aspart insulin sliding scale qac + qhs on hospital discharge home on 11/14/2024. Instead, patient will resume his home-scheduled glipizide 5mg PO daily on hospital discharge home on 11/14/2024. Discharge time, 35 minutes. Of this time period, 18 minutes were spent in coordinating patient's discharge. (2) Cirrhosis: (3) Diabetes mellitus type 2, controlled: Admission HPI Per Admitting Provider Eduardo is a 64-year-old male with PMH of T2DM, HTN, ALICE, and gallstones. He presented on 11/09 after being referred from [facility] for dizziness and generalized fatigue. He reports that last night he developed a lower back pain, as well as dry cough, and feeling lightheaded/off-balance. He then woke up and his symptoms felt worse. He endorses intermittent melena over the past few days. No bright red blood in his stool. No recent NSAID use. On the morning of 11/09, he was walking from the parking deck to his work building, and became dyspneic on exertion, which was new for him. He has followed with Dr. Crabtree in the past, and reports his last colonoscopy was in 2022. Patient reports he is open to having an endoscopy or colonoscopy if needed. Patient took his regular morning medicine today; no recent change in medications. He takes aspirin daily for primary prevention; no history of heart stents. No prior history of MIs. No recent Pepto-Bismol use or iron supplementations. While he denies abdominal pain, he does endorse intermittent stomach "discomfort". No prior history of gastric ulcers, and he does not believe he has ever had an EGD. No prior history of blood transfusions. Patient denies smoking, but does endorse chewing tobacco. He endorses 1-2 alcoholic drinks per week. Patient's vitals are stable at time admission. ED course: Pantoprazole bolus/drip 2u pRBCs ordered ROS: Patient endorses intermittent melena over the past couple days, lightheadedness, SAMPSON, dry cough, new onset ROCHA today, back pain, hematuria (ongoing since June), and leg heaviness. Patient denies fever, chills, night-sweats, chest pain, chest palpitations, SOB at rest, hemoptysis, abdominal pain, N/V/D, or BRB in the stool. Discharge Exam General: comfortable, coherent, cooperative. Wide awake and alert. Not confused, lethargic, or obtunded. Patient speaks in complete, fluent, and articulate sentences without pause, interruption, cough, or wheeze. HEENT: NC/AT. EOMI, PERRL. No nystagmus, gaze paresis, anisocoria, miosis, mydriasis, hyphema, chemosis, scleral icterus, conjunctivitis, or pterygium. No otorrhea, no rhinorrhea. No pharyngeal discharge or erythema. Neck: Supple, no stridor, bruit, goiter, or hepatojugular reflux. Jugular venous pressure is estimated to be 8 cm above the sternal angle of Rodriguez, which is typically 5 cm above the level of the right atrium. Hence, there is no jug ular venous distention noted on discharge exam 11/14/2024. Lymphatics: No pre-post auricular, anterior/posterior cervical, supraclavicular/infraclavicular, axillary, epitrochlear, or inguinal adenopathy. Chest: Symmetric rise and fall with respirations. Non-tender to palpation. Heart: RRR, S1 and S2 noted. No S3 or S4 summation gallop noted. No tripartite friction rub. Grade II/ early systolic murmur @ LLSB without radiation to the carotids, axilla, or back, and which remains invariant in regards to the respiratory cycle. Lungs: Clear to auscultation and percussion. No audible expiratory wheeze, egophony, pectoriloquy, increase in tactile fremitus, or flatness/dullness to percussion at the bases. Abdomen: Soft, non-tender, non-distended. No rebound, guarding, White's sign, or organomegaly. Bowel sounds auscultated in all 4 quadrants. Extremities: No clubbing, cyanosis, or edema. 2+ pedal pulses bilaterally. Skin: No decubitus ulcer, exanthem, or enanthem. Neurology: Alert and oriented in regards to person, place, time, and situation. DTR+ and symmetric. 5/5 motor strength in all 4 extremities, both proximally and distally. No myoclonus, tremors, or tics. Urology: No frances catheter. No urethral discharge. Psychiatry: Appropriate affect. Smiles occasionally. No homicidal/suicidal ideation. Discharge Plan Discharge Items Patient Disposition: Home - Self-Care Reason For Visit: UPPER GI BLEED Discharge Diagnosis: acute blood loss anemia Activity: Resume your previous activity Lifting: No more than 5 pounds Non-emergency contact: Primary Care Provider Call non-emergency contact if: you have any medication questions Follow-up/Referrals: Logan Reza, [Primary Care Provider] - 11/21/24 1:00 pm (PCP Dr Reza follow up: 11/21/24 @1pm) Diet: Heart Healthy, Low Fat and Low Sodium (2gm) Addtl Attending Provider Instructions: See your PCP Dr. Logan Reza within 5-7 days of hospital discharge. Pending Studies at Discharge: No Stand-Alone Forms: My [facility] [email or web address], Smoking Cessation Medications and DC Order Prescriptions: New nadolol 40 mg Tablet 20 mg PO QAM Qty: 30 0RF pantoprazole [Protonix] 40 mg tablet,delayed release (DR/EC) 40 mg PO Q12H Qty: 60 0RF ciprofloxacin HCl 500 mg tablet 500 mg PO BID Qty: 10 0RF Continued glipizide 5 mg tablet extended release 24hr 5 mg PO DAILY Qty: 90 3RF tamsulosin 0.4 mg capsule 0.4 mg PO HS Qty: 90 1RF Discontinued metoprolol tartrate 25 mg tablet 25 mg PO BID Qty: 180 3RF olmesartan 40 mg tablet 40 mg PO DAILY Qty: 90 3RF tadalafil 20 mg tablet 20 mg PO DAILY PRN (Reason: sexual activity) Qty: 20 4RF Rx Instructions: administer approximately 30min before sexual activity; do not use more than 1 dose per 24hrs aspirin [Adult Low Dose Aspirin] 81 mg tablet,delayed release (DR/EC) 81 mg PO DAILY triamterene-hydrochlorothiazid 37.5-25 mg capsule 1 cap PO DAILY 90 Days Qty: 90 3RF Discharge Orders: Discharge Order (Routine); Ordered 11/14/24 Ordered By: Jatin Hart/Other Patient Handouts: High Blood Sugar (Hyperglycemia), Hypoglycemia (Low Blood Sugar), Managing Type 2 Diabetes Admission Data Admit Date/Time: 11/09/24 14:33 Attending Provider: Jatin Patel Admit Provider: Cyrus Sheth Primary Care Provider: Logan Reza Other Providers: Cyrus Sheth; Fahad Frias; Silviano Dunn; [facility] Hospital Stay Data Consultations 11/09/24 11:49 ED Decision to Admit Stat 11/09/24 13:05 Consult Gastroenterology Routine 11/09/24 16:06 Consult Terminal Supervisor Routine Procedures Performed Operation Date: 11/09/24 13:00 Actual Procedures p EGD Banding of Varices - Fahad Frias MD Diagnostic Imagining Performed 11/09/24 15:51 US duplex portal hepatic veins Routine Pending Results Patient Have Any Pending Studies at Discharge: No Discharge Instructions Given to Patient (Per Discharging Provider) See your PCP Dr. Logan Reza within 5-7 days of hospital discharge. Supervising Physician Co-Signing Physician Notes Patient seen and examined, chart reviewed, case discussed with Cristobal Hardy PA-C and I agree with the assessment and plan as above except as otherwise noted Labs and images reviewed 64-year-old male with past medical history of type II DM, fatty liver disease, cirrhosis, ALICE presents to the ER with melena/upper GI bleed. BUN is elevated at 42. Hemoglobin 9. Patient was ordered 1 unit for transfusion for possible hemodynamic instability with tachycardia/hypotension on ER evaluation. Acute upper GI bleed in patient with history of liver cirrhosis: GIs been consulted. IV Rocephin has been ordered. Recommended addition of octreotide bolus and drip. Recommended continuing PPI bolus and drip. Patient is anticipated for EGD today, keep NPO. Will keep transfusion threshold of 8.0 due to elevated troponin. Patient is chest pain-free with a Trop 85/repeat 92. EKG normal sinus rhythm without acute territorial ischemia. Patient has history of chronic cirrhosis, currently compensated. T. bili 1.7, no transaminitis. Agree with above Addendum: Response called patient with acute hematemesis large amount of clot. Normotensive/tachycardic. 1 unit pending for transfusion. Reglan ordered. PPI/octreotide continued. Patient will be taken urgently to endoscopy lab with GI and postop will proceed to the ICU. On reassessment BP 122/58, remains tachycardic, alert, oriented. Total Time Total Time Spent Total Time Spent (In Minutes): 35 minutes. Coding Level of Care Code 20207 INP/OBS DISCH >30 MIN Diagnoses Upper GI bleed K92.2 Cirrhosis K74.60 Diabetes mellitus type 2, controlled E11.9
[2024-11-14 16:15] VITALS: BP 161/82
--- NOTE | 2024-11-20 07:10 | Coding Query ---
Elevated troponin is due to acute type II NSTEMI, which is due to demand ischemia. Patient did NOT have an acute type I NSTEMI. CODING QUERY To promote full compliance with coding requirements relating to patient care, provider participation is requested in all cases of support team assoc uncertainty. Please assist us with the question(s) below: Coding Question(s): Per documentation "Elevated troponin was likely a type II NE I21.A1", later in the stay the elevated troponin was "likely demand ischemia". Acute NE was listed on the discharge summary. Please clarify what the elevated troponin was due to. Physician's Response(s): Thank you Michela Reza Principal Diagnosis: "that condition established after study, to be chiefly responsible for occasioning the admission of the patient to the hospital for care." Co-Existing Principal Diagnosis: "when two or more diagnoses equally meet the criteria for principal diagnosis as determined by the circumstances of admission, diagnostic work up, and/or therapy provided, and the Alphabetic Index, Tabular List, or another coding guideline does not provide sequencing direction, any one of the diagnoses may be sequenced first." "When the physician has documented what appears to be a current diagnosis in the body of the record, but has not included the diagnosis in the final diagnostic statement, the physician should be asked whether the diagnosis should be added." (Source Coding Clinic 2 QTR90. p3-4) RAJ
== END 2024-11-14 17:38 | disposition home health service (06) | DRG 326 ==
LOC: ED 09:54 → SUATTDRO 14:33 → OR 14:42 → 1E 14:43

== ENCOUNTER 2024-11-21 13:47 | Inpatient (IN) ==
--- NOTE | 2024-11-21 14:00 | ED Triage Note ---
Date of Service November 21, 2024 Provider in Triage Author: Niecy Finley History of Present Illness This patient was briefly evaluated while in triage. An abbreviated physical exam was performed. This patient is a 64-year-old Male who presents to the ED for evaluation recent admission for GI bleed, discharged 2/5 seen by PCP today and sent to ED for fatigue, 14# weight gain and fluid retention per Dr. Reza : He appears to be struggling and appears ill. He presents with significant fluid retention, evidenced by a weight gain of 14 pounds since his last visit. This is likely due to the cessation of his antihypertensive medications during his recent hospitalization for a gastrointestinal bleed. The concern is that he may have decompensated in the opposite direction, necessitating further evaluation and potential evaluation for intravenous diuretic therapy. I do not think oral lasix will be effective if gut is edematous with fluid. He notes decreased urine output which is concerning as well for potential Hepato-renal syndrome. I believe that his prior regimen of Olmesartan and the Triamterene was helping provide diuretic effect. Concern that increased fluid volume of 14 pounds will cause further increase of portal HTN. Increased hydrostatic pressure from portal HTN resulting in more fluid in abdomen. Without ARB and Triamterene, his [id number] axis has led to further resorption of fluid. May need therapeutic tap, unable to determine that here with limited diagnostic capabilities. Physical Exam GENERAL: NAD CARDIOVASCULAR: RRR RESPIRATORY: CTA ABDOMEN: BS x 4. Abdomen distended. Initial orders for labs and / or imaging were placed and patient was placed in the waiting area until a bed is available. Please see further documentation for the full ED course.
--- NOTE | 2024-11-21 14:49 | XRay Report ---
XR chest 1V not portable CLINICAL HISTORY: fluid retention COMPARISON STUDY: Chest radiograph November 10, 2024. FINDINGS: There is no pneumothorax. A trace left pleural effusion has decreased in size since prior e xam. Bibasilar densities favor atelectasis. No consolidation to suggest pneumonia. There is no eviden ce for pulmonary edema. Moderate cardiomegaly is again noted. IMPRESSION: 1. Cardiomegaly. No evidence for pulmonary edema. 2. Trace left pleural effusion, decreased in size since prior exam. ACT 112: Negative or not required by law. Electronically signed by: Dean Feliz M.D. 11/21/2024 2:47 PM
[2024-11-21 15:09] LABS: Basophils # (auto) 0.02 K/uL (0.00-0.20); Basophils % (auto) 0.4 %; Eosinophils # (auto) 0.23 K/uL (0.00-0.50); Eosinophils % (auto) 4.1 %; Hematocrit (blood only) 29.1 % (42.0-52.0); Immature Granulocytes # (auto) 0.03 K/uL (0.01-0.20); Immature Granulocytes % (auto) 0.5 %; Lymphocytes % (auto) 16.1 %; Mean Corpuscular Hemoglobin 25.9 pg (25.0-34.0); Mean Corpuscular Hgb Conc 30.9 g/dL (32.0-36.0); Mean Corpuscular Volume 83.9 fL (80.0-100.0); Mean Platelet Volume 9.8 fL (9.4-12.4); Monocytes # (auto) 0.37 K/uL (0.11-0.59); Monocytes % (auto) 6.6 %; Neutrophils # (auto) 4.05 K/uL (1.40-6.50); Neutrophils % (auto) 72.3 %; Platelet Count 147 K/uL (130-400); RDW Coefficient of Variation 16.1 % (11.5-14.5); RDW Standard Deviation 49.1 fL (36.4-46.3); Red Blood Count 3.47 M/uL (4.70-6.10)
[2024-11-21 15:23] LABS: Albumin Globulin Ratio 1.2 (0.9-2); Albumin Level 3.5 gm/dl (3.4-5.0); Bilirubin,Total 0.7 mg/dl (0.2-1.0); Calcium 7.9 mg/dl (8.6-10.3); Globulin 2.9 gm/dl (2.5-4.0); Potassium 3.5 mmol/L (3.5-5.1); Total Protein 6.4 gm/dl (6.0-8.3)
[2024-11-21 15:29] LABS: Troponin I High Sensitivity 9.1 pg/ml (0-20)
[2024-11-21 15:37] LABS: INR 1.1 (0.9-1.1); Partial Thromboplastin Ratio 0.9; Partial Thromboplastin Time 23 Seconds (21-31); Prothrombin Time 11.9 Seconds (9.0-12.0)
[2024-11-21 18:30] LABS: Appearance Urine Clear (Clear); Bacteria Urine Automated None Seen (None Seen); Bilirubin Urine Negative (Negative); Blood Urine Negative (Negative); Cast Urine Automated 0-2 /lpf (0-2); Color Urine Dark Yellow; Epithelial Cell Urine Auto 0-2 /hpf (0-2); Glucose Urine UA Negative (Negative); Ketones Urine Trace (Negative); Leukocyte Esterase Urine Negative (Negative); Nitrite Urine Negative (Negative); Protein Urine Trace (Negative); RBC Urine Automated 0-2 /hpf (0-2); Specific Gravity Urine 1.025 (1.000-1.030); Urobilinogen Urine Negative (Negative); WBC Urine Automated 0-5 /hpf (0-5); pH Urine 5.5 (4.5-7.5)
--- NOTE | 2024-11-21 19:23 | Emergency Department Note ---
Impression & Plan Abdominal ascites, Fluid overload ED Provider Note NAME: REBECA IRWIN AGE: 64 SEX: M : 1960 ARRIVES VIA: Walk-In INFORMANT: Patient, ED PROVIDER(S): Amrit Jaquez MD CHIEF COMPLAINT: Sent in for fluid removal HPI: This is a 64-year-old male with history of cirrhosis presenting for fluid overload. Patient has recently gained over 14 pounds since being manage to the hospital and discharge. He reportedly was here for upper GI bleed previously. Since that he has noted significant swelling to his abdomen as well as bilateral lower extremities. He takes a small "fluid pill". Otherwise no significant nausea, vomiting. He does have exertional dyspnea. Abdominal discomfort due to the swelling but no significant pain at rest or with palpation. ROS: See above HPI for pertinent positives & negatives. A total of 10 systems reviewed and were otherwise negative. PAST MEDICAL HISTORY: See Below PAST SURGICAL HISTORY: See Below FAMILY HISTORY: See Below SOCIAL HISTORY: See Below HOME MEDICATIONS: See Below ALLERGIES: See Below VITALS: See Below PHYSICAL EXAMINATION: General: resting comfortably in no acute distress Head: Normocephalic and atraumatic Eyes: Normal inspection, extraocular muscles intact Ear, nose, throat: Normal external exam Neck: Normal range of motion Respiratory: lungs clear to auscultation bilaterally Cardiovascular: Regular rate/rhythm, no murmur GI: Distended nontender Extremities: nontender, moves all extremities, 2+ pitting edema Neuro: The patient awake and alert, appropriately conversive, no focal deficits, symmetric faces Skin: Warm, dry, and intact MEDICAL DECISION MAKING: This 64-year-old male presenting for fluid overload. Patient peers to have cirrhosis and has abdominal ascites as well as bilateral lower extremity edema. Consider CHF, cirrhosis, renal failure, hepatorenal syndrome. -bloodwork notes stable anemia. Otherwise no significant leukocytosis or electrolyte disturbances. Will start Lasix 20 mg here. Patient may require therapeutic paracentesis ultimately. -Patient care discussed for admission for further fluid overload management Differential diagnosis: Consider CHF, cirrhosis, renal failure, hepatorenal syndrome. Independent History obtained from: Son Diagnostics interpreted by me: ECG: ECG independently interpreted by me with normal sinus rhythm, rate of 77, normal axis, normal TX, left bundle branch block, normal QTc, no ST segment elevations consistent with STEMI criteria Cardiac Monitoring: An order was placed for continuous cardiac monitoring. The monitor shows a rate of 74 with sinus rhythm. Past Med/Surg History Problem List (Updated 11/22/24 @ 09:25 by Amrit Jaquez MD) Fluid overload (Acute) Abdominal ascites (Acute) Leg edema Decreased urine output Edema due to hypervolemia Decompensated cirrhosis Thrombocytopenia Non-ST elevation [place] (NSTEMI) (Acute) ABLA (acute blood loss anemia) (Acute) UGIB (upper gastrointestinal bleed) (Acute) Duodenal ulcer Esophageal varices determined by endoscopy Aspiration pneumonia Sepsis Elevated troponin Shock circulatory Upper GI bleed Cirrhosis Hematuria Right hydrocele Right inguinal hernia Testicular swelling, right ALICE (obstructive sleep apnea) (Chronic) Erectile dysfunction (Chronic) Diabetes mellitus type 2, controlled (Chronic) HTN (hypertension) (Chronic) Medical History (Updated 11/22/24 @ 09:25 by Amrit Jaquez MD) Gallstones URI (upper respiratory infection) Testicle trouble Nocturia BMI 39.0-39.9,adult Financial difficulty Normal colonoscopy (~2019) Surgical History H/O colonoscopy Family History Mother Hypertension Liver disease Diabetes Aunt Breast cancer Diabetes Father Prostate cancer Myocardial infarction Social History (Updated 11/21/24 @ 12:53 by JAMAL Mistry) Smoking Status: Never smoker Tobacco Type: Smokeless Tobacco (Dip or Chew) Second Hand Exposure: No; Do You Dip or Chew Tobacco: Yes; Hx Alcohol Use: Yes Alcohol type: beer Alcohol Intake Frequency: 4 or More x per/Week Hx Substance Use: No Preferred Language: Samoan Communication Ability: Effective Communication Ability Comment: Patient is intubated and sedated Telegraph Mechanic Required: No Beliefs That Will Affect Care: None marital status: Current Living Situation: Family Current Living Situation Comment: son lives with patient current occupational status: employed current occupation: [employer] How many Children do You have: 3 Feels Safe at Home: Yes Childhood Exposure to Second-Hand Smoke: Yes Diet: regular caffeine: Yes during the past year weight has: remained stable Dental Care, Regularly: Yes Physical Activity Frequency: Does not Exercise Seatbelt Use: always Sunscreen Use: Yes Assistive Devices: Glasses Allergies Allergies Allergy/AdvReac Type Severity Reaction Status Date / Time clarithromycin Allergy Mild NAUSEA Verified 11/21/24 12:49 VOMITING metformin AdvReac Mild Headache Verified 11/21/24 12:49 Home Meds Home Medications Medication Instructions Recorded Confirmed glipizide 5 mg tablet, extended 5 mg PO QAM 11/21/24 11/21/24 release 24 hr nadolol 40 mg tablet 20 mg PO QAM 11/21/24 11/21/24 pantoprazole 40 mg tablet,delayed 40 mg PO Q12 11/21/24 11/21/24 release tamsulosin 0.4 mg capsule 0.4 mg PO HS 11/21/24 11/21/24 Results & Data (ED) Vital Signs Vital Signs - 24 hr 11/21/24 13:59 11/21/24 18:20 11/21/24 18:52 Temperature 36.7 C Temperature Source Temporal Artery Scan Pulse Rate 92 H 74 Pulse Rate [Apical] 73 Pulse Rhythm [Apical] Regular Pulse Strength [Apical] Normal Respiratory Rate 17 20 Respiratory Effort / Characteristics Non-Labored Respiratory Depth Normal Respiratory Pattern Regular Blood Pressure 184/91 H Blood Pressure [Left Arm] 173/89 H Blood Pressure Mean 122 Blood Pressure Mean [Left Arm] 117 Blood Pressure Position [Left Arm] Lying Pulse Oximetry 100 99 Oxygen Delivery Method Room Air Room Air Sepsis Recent Fever Within 48 Hours No Sepsis New/Unexplained Change in Mental Status No Sepsis Action Taken by Nursing No Action Required 11/21/24 18:53 11/21/24 19:34 Temperature Temperature Source Pulse Rate 74 Pulse Rate [Apical] 71 Pulse Rhythm [Apical] Pulse Strength [Apical] Respiratory Rate 24 15 Respiratory Effort / Characteristics Respiratory Depth Respiratory Pattern Blood Pressure Blood Pressure [Left Arm] 177/100 H Blood Pressure Mean Blood Pressure Mean [Left Arm] 125 Blood Pressure Position [Left Arm] Pulse Oximetry 99 100 Oxygen Delivery Method Room Air Sepsis Recent Fever Within 48 Hours Sepsis New/Unexplained Change in Mental Status Sepsis Action Taken by Nursing Laboratory Data 11/21/24 14:51 11/21/24 14:51 Lab Results 11/21/24 11/21/24 11/21/24 Range/Units 14:51 18:03 18:05 WBC 5.60 (4.8-10.8) K/ul RBC 3.47 L (4.70-6.10) M/uL Hgb 9.0 L (14.0-18.0) g/dl Hct 29.1 L (42.0-52.0) % MCV 83.9 (80.0-100.0) fL MCH 25.9 (25.0-34.0) pg MCHC 30.9 L (32.0-36.0) g/dL RDW Std Deviation 49.1 H (36.4-46.3) fL RDW Coeff of Juli 16.1 H (11.5-14.5) % Plt Count 147 (130-400) K/uL MPV 9.8 (9.4-12.4) fL Immature Gran % (Auto) 0.5 % Neut % (Auto) 72.3 % Lymph % (Auto) 16.1 % [place] % (Auto) 6.6 % Eos % (Auto) 4.1 % Baso % (Auto) 0.4 % Neut # (Auto) 4.05 (1.40-6.50) K/uL Lymph # (Auto) 0.90 L (1.20-3.40) K/uL [place] # (Auto) 0.37 (0.11-0.59) K/uL Eos # (Auto) 0.23 (0.00-0.50) K/uL Baso # (Auto) 0.02 (0.00-0.20) K/uL Immature Gran # (Auto) 0.03 (0.01-0.20) K/uL PT 11.9 (9.0-12.0) Seconds INR 1.1 (0.9-1.1) APTT 23 (21-31) Seconds PTT Ratio 0.9 Sodium 140 (136-145) mmol/L Potassium 3.5 (3.5-5.1) mmol/L Chloride 104 (98-107) mmol/L Carbon Dioxide 31 (21-32) mmol/L Anion Gap 5 (3-11) BUN 12 (6-23) mg/dl Creatinine 0.92 (0.6-1.4) mg/dl Est Cr Clr Drug Dosing 105.0 ml/min eGFR 92.89 BUN/Creatinine Ratio 13.0 (10-20) Glucose 132 H (70-99(Fasting)) mg/dl Calcium 7.9 L (8.6-10.3) mg/dl Magnesium 2.0 (1.7-2.4) mg/dl Total Bilirubin 0.7 (0.2-1.0) mg/dl AST 25 (13-39) U/L ALT 24 (7-52) U/L Alkaline Phosphatase 88 (34-104) U/L Ammonia 19.0 (18-72) umol/L Troponin I High Sens 9.1 (0-20) pg/ml B-Natriuretic Peptide 50 (0-100) pg/ml Total Protein 6.4 (6.0-8.3) gm/dl Albumin 3.5 (3.4-5.0) gm/dl Globulin 2.9 (2.5-4.0) gm/dl Albumin/Globulin Ratio 1.2 (0.9-2) Urine Color Dark Yellow Urine Appearance Clear (Clear) Urine pH 5.5 (4.5-7.5) Ur Specific [place] 1.025 (1.000-1.030) Urine Protein Trace H (Negative) Urine Glucose (UA) Negative (Negative) Urine Ketones Trace H (Negative) Urine Blood Negative (Negative) Urine Nitrite Negative (Negative) Urine Bilirubin Negative (Negative) Urine Urobilinogen Negative (Negative) Ur Leukocyte Esterase Negative (Negative) Urine WBC (Auto) 0-5 (0-5) /hpf Urine RBC (Auto) 0-2 (0-2) /hpf U Hyaline Cast (Auto) 0-2 (0-2) /lpf U Epithel Cells (Auto) 0-2 (0-2) /hpf Urine Bacteria (Auto) None Seen (None Seen) Administered Medications Insulin Aspart (Insulin Aspart Per Unit Charge) 0 units SC ACHS MASOOD Stop: 12/21/24 22:36 Last Admin: 11/21/24 22:45 Dose: Not Given Documented By: ACDg Co-signed By: DIYA Pantoprazole Sodium (Pantoprazole 40 Mg Tab) 40 mg PO Q12H MASOOD Stop: 12/21/24 22:36 Last Admin: 11/21/24 23:33 Dose: 40 mg Documented By: DIYA Tamsulosin HCl (Tamsulosin Hcl 0.4 Mg Cap) 0.4 mg PO HS MASOOD Stop: 12/21/24 22:36 Last Admin: 11/21/24 23:33 Dose: 0.4 mg Documented By: DIYA Discontinued Medications Furosemide (Furosemide Inj 20 Mg/2 Ml Vial) 20 mg IV ONE ONE Stop: 11/21/24 19:25 Last Admin: 11/21/24 19:33 Dose: 20 mg Documented By: [facility] Imaging Data Radiologist's Impression: Chest X-Ray 11/21/24 14:03 XR chest 1V not portable CLINICAL HISTORY: fluid retention COMPARISON STUDY: Chest radiograph November 10, 2024. FINDINGS: There is no pneumothorax. A trace left pleural effusion has decreased in size since prior exam. Bibasilar densities favor atelectasis. No consolidation to suggest pneumonia. There is no evidence for pulmonary edema. Moderate cardiomegaly is again noted. IMPRESSION: 1. Cardiomegaly. No evidence for pulmonary edema. 2. Trace left pleural effusion, decreased in size since prior exam. ACT 112: Negative or not required by law. Electronically signed by: Dean Feliz M.D. 11/21/2024 2:47 PM Discharge Plan Visit Data Chief Complaint: Swelling/Edema to Extremity Stated Complaint: EDEMA ALL OVER/FLUID NEEDS DRAINED ED Provider: Amrit Jaquez Discharge Problem: Abdominal ascites, Fluid overload Patient Disposition: Admitted As Inpatient Discharge Instructions Interventions: ED Discharge Assessment Last Done: 11/22/24 02:18
[2024-11-21] MEDS: FUROSEMIDE INJ 20 MG/2 ML VIAL IV ONE (19:33)
--- NOTE | 2024-11-21 19:49 | History & Physical Report ---
Date of Service November 21, 2024 Assessment & Plan (1) Cirrhosis: Plan: - concern for ascites in the setting of cirrhosis - PT/INR wnl - no signs of SBP - has never had paracentesis- concern for worsening ascites-> will order paracentesis - was following with [facility] for cirrhosis-> needs to get re-established. Does not appear that he has had hepatitis panel in the past-> will add to am labs - s/p 20mg IV Lasix in ED, continue with 40mg IV Lasix daily as creatine can tolerate and will add 25mg spironolactone (2) Leg edema: Plan: - in the setting of decompensated cirrhosis - plan for dieresis as per above (3) Esophageal varices determined by endoscopy: Plan: - Hgb is stable from 11/14 and no signs of further bleeding - continue with PPI BID and nadolol (4) HTN (hypertension): Plan: - mildly hypertensive in the ED with BPs 170s/90s - was on anti-hypertensives prior to last admission at which time they were held due to hemorrhagic/hypovolemic shock - Plan for dieresis as per above (5) Diabetes mellitus type 2, controlled: Plan: - well controlled with last hemoglobin a1c= 7.5 11/2024 - hold glipizide - SSI while inpatient Plan Diet: NPO pending paracentesis Code: Full Dispo: Med Tele VTE Prophylaxis; SCD, hold on chemical pending paracentesis History of Present Illness Primary Care Provider: Logan Reza, DO 64 year old male with a past medical history of T2DM, HTN, ALICE, BLACKMAN, cirrhosis presenting with concern for weight gained and increased LE edema and ascites. Was recently admitted 11/09-11/14 with an upper GI secondary to esophageal varices. Varices were successfully banded. During that admission he required ICU admission as was intubated and on pressor support in the setting of hemorrhagic/hypovolemic shock. Since discharge he has noticed an increased weight gain on about 20lbs. Also notes increased swelling in both his abdomen and LE B/L. Notes that he has been on triamterene-HCTZ, which was held on d/c. Does not some dyspnea especially when laying flat. Denies chest pain. ED course significant for: Hbg= 9 (stable from 11/14), PT/INR, CMP, Trop wnl. UA unremarkable. CXR without pulmonary edema, trace left pleural effusion. S/p 20mg IV Lasix Allergies Allergy/AdvReac Type Severity Reaction Status Date / Time clarithromycin Allergy Mild NAUSEA Verified 11/21/24 12:49 VOMITING metformin AdvReac Mild Headache Verified 11/21/24 12:49 Home Medications Medication Instructions Recorded Confirmed Type glipizide 5 mg tablet, extended 5 mg PO QAM 11/21/24 11/21/24 History release 24 hr nadolol 40 mg tablet 20 mg PO QAM 11/21/24 11/21/24 History pantoprazole 40 mg tablet,delayed 40 mg PO Q12 11/21/24 11/21/24 History release tamsulosin 0.4 mg capsule 0.4 mg PO HS 11/21/24 11/21/24 History Past Med/Surg History Problem List (Updated 11/21/24 @ 20:18 by Kristen Pichardo DO) Leg edema Decreased urine output Edema due to hypervolemia Decompensated cirrhosis Thrombocytopenia Non-ST elevation [place] (NSTEMI) (Acute) ABLA (acute blood loss anemia) (Acute) UGIB (upper gastrointestinal bleed) (Acute) Duodenal ulcer Esophageal varices determined by endoscopy Aspiration pneumonia Sepsis Elevated troponin Shock circulatory Upper GI bleed Cirrhosis Hematuria Right hydrocele Right inguinal hernia Testicular swelling, right ALICE (obstructive sleep apnea) (Chronic) Erectile dysfunction (Chronic) Diabetes mellitus type 2, controlled (Chronic) HTN (hypertension) (Chronic) Medical History (Updated 11/21/24 @ 20:18 by Kristen Pichardo DO) Gallstones URI (upper respiratory infection) Testicle trouble Nocturia BMI 39.0-39.9,adult Financial difficulty Normal colonoscopy (~2019) Surgical History H/O colonoscopy Family History Mother Hypertension Liver disease Diabetes Aunt Breast cancer Diabetes Father Prostate cancer Myocardial infarction Social History (Updated 11/21/24 @ 12:53 by JAMAL Mistry) Smoking Status: Never smoker Tobacco Type: Smokeless Tobacco (Dip or Chew) Second Hand Exposure: No; Do You Dip or Chew Tobacco: Yes; Hx Alcohol Use: Yes Alcohol type: beer Alcohol Intake Frequency: 4 or More x per/Week Hx Substance Use: No Preferred Language: Romanian Communication Ability: Effective Communication Ability Comment: Patient is intubated and sedated Cornetist Required: No Beliefs That Will Affect Care: None marital status: Current Living Situation: Family Current Living Situation Comment: son lives with patient current occupational status: employed current occupation: [employer] How many Children do You have: 3 Other Information That Helps Us Care for You: No Feels Safe at Home: Yes Safety Concerns: Feels Safe At This Time Childhood Exposure to Second-Hand Smoke: Yes Diet: regular caffeine: Yes during the past year weight has: remained stable Dental Care, Regularly: Yes Physical Activity Frequency: Does not Exercise Seatbelt Use: always Sunscreen Use: Yes Assistive Devices: Glasses Review of Systems Review of Systems: As per above Physical Exam Physical Exam: Constitutional: well-appearing, no acute distress HEENT: NCAT, no conjunctival injection CV: regular rhythm, no murmur appreciated, extremities well-perfused, 2+ LE edema to mid gonzalez Resp: CTABL, no wheezes/rales/rhonchi appreciated, no increased work of breathing GI:+distended, nontender MSK: no gross deformities appreciated Skin: warm, dry, no rash appreciated Neuro: alert, oriented, no focal neurologic deficit appreciated Results & Data Results & Data Vital Signs (Past 12 Hours) Vital Signs Temp Pulse Pulse Resp BP BP Pulse Ox 11/21/24 19:34 71 15 177/100 H 100 11/21/24 18:53 74 24 99 11/21/24 18:52 73 20 173/89 H 99 11/21/24 18:20 74 11/21/24 13:59 36.7 C 92 H 17 184/91 H 100 O2 Del Method 11/21/24 19:34 11/21/24 18:53 Room Air 11/21/24 18:52 Room Air 11/21/24 18:20 11/21/24 13:59 Room Air Supervising Physician Co-Signing Physician Notes Attending addendum: I have physically seen this patient, have supervised the medical residents ac tivities, and agree with the H&P unless as otherwise noted. Assessment and Plan: The patient is a 64-year-old male with a past medical history including diabetes mellitus type 2, hypertension, ALICE, BLACKMAN, liver cirrhosis, history of NSTEMI, history of thrombocytopenia, history of upper GI bleed, de Quervain's disease, ALICE, and hypertension. He presents to the emergency department due to increasi ng weight gain, and an increase in lower extremity edema. Most recent hospitalization was from 11/09-11/14/2024, requiring ICU admission due to upper GI bleed secondary to esophageal varices. Patient reports that since discharge, has gained about 20 pounds, primarily due to increased abdominal swelling and lower extremity edema. He reports he had been on triamterene/HCTZ, which had been held on discharge. Presumptive anasarca/lower extremity edema/ascites/increasing abdominal girth- Order diagnostic/therapeutic paracentesis, ultrasound versus CT per recommendation of IR Patient does follow with [facility] for cirrhosis Presently on beta-delores nadolol He was given furosemide 20 mg IV from the ED, would increase it to 40 mg IV every morning, and will place on spironolactone 25 mg every morning Ultimately will likely need to be on furosemide 40 mg every morning to twice daily, and spironolactone 25 mg every morning to twice daily as required Diabetes mellitus- Hold glipizide Place on Accu-Cheks with NovoLog SSI Check hemoglobin A1c BPH with LUTS- Tamsulosin as noted Remaining orders notations as noted Resident Activity Tracking Resident Involvement: Resident Care Provided Care Provided: Adult Hospital Medicine (1) Cirrhosis Ascites presence: with ascites Hepatic cirrhosis type: alcoholic cirrhosis Qualified Code(s): K70.31 - Alcoholic cirrhosis of liver with ascites
[2024-11-21] MEDS ORDERED: CARBOHYDRATES FOR HYPOGLYCEMIA PO PRN (22:37)
[2024-11-21] MEDS ORDERED: GLUCOSE 40% GEL 15 GM TUBE PO PRN (22:37)
[2024-11-21] MEDS ORDERED: GLUCOSE 10 TAB/TUBE PO PRN (22:37)
[2024-11-21] MEDS ORDERED: GLUCAGON FOR INJ 1 MG VIAL SQ PRN (22:37)
[2024-11-21] MEDS ORDERED: DEXTROSE 50% 50 ML SYRINGE IV PRN (22:37)
[2024-11-21] MEDS: INSULIN ASPART PER UNIT CHARGE SC SCH (22:45)
[2024-11-21] MEDS: TAMSULOSIN HCL 0.4 MG CAP PO SCH (23:33)
[2024-11-21] MEDS: PANTOprazole 40 MG TAB PO SCH (23:33)
--- NOTE | 2024-11-22 03:16 | Billing Data ---
Date of Service November 22, 2024 Coding Level of Care Code 52015 INT INP/OBS CARE
[2024-11-22 09:44] LABS: Basophils # (auto) 0.03 K/uL (0.00-0.20); Basophils % (auto) 0.7 %; Eosinophils # (auto) 0.13 K/uL (0.00-0.50); Eosinophils % (auto) 3.1 %; Hematocrit (blood only) 26.7 % (42.0-52.0); Hemoglobin 8.1 g/dl (14.0-18.0); Immature Granulocytes # (auto) 0.01 K/uL (0.01-0.20); Immature Granulocytes % (auto) 0.2 %; Lymphocytes % (auto) 16.8 %; Mean Corpuscular Hemoglobin 25.4 pg (25.0-34.0); Mean Corpuscular Hgb Conc 30.3 g/dL (32.0-36.0); Mean Corpuscular Volume 83.7 fL (80.0-100.0); Mean Platelet Volume 9.5 fL (9.4-12.4); Monocytes # (auto) 0.35 K/uL (0.11-0.59); Monocytes % (auto) 8.4 %; Neutrophils # (auto) 2.94 K/uL (1.40-6.50); Neutrophils % (auto) 70.8 %; Platelet Count 125 K/uL (130-400); RDW Coefficient of Variation 16.2 % (11.5-14.5); RDW Standard Deviation 49.7 fL (36.4-46.3); Red Blood Count 3.19 M/uL (4.70-6.10); White Blood Count 4.16 K/ul (4.8-10.8)
[2024-11-22] MEDS: nadoloL 40 MG TAB PO SCH (09:47)
[2024-11-22] MEDS: SPIRONOLACTONE 25 MG TAB PO SCH (09:48)
--- NOTE | 2024-11-22 09:48 | Hospitalist Progress Note ---
Date of Service November 22, 2024 Assessment & Plan (1) Cirrhosis: Plan: -ordered paracentesis - was following with [facility] for cirrhosis-> needs to get re-established. - s/p 20mg IV Lasix in ED, continue with 40mg IV Lasix daily, 25mg spironolactone (2) Leg edema: Plan: - in the setting of decompensated cirrhosis - plan for dieresis as per above (3) Esophageal varices determined by endoscopy: Plan: - Hgb is stable from 2/5 and no signs of further bleeding - continue with PPI BID and nadolol (4) HTN (hypertension): Plan: - mildly hypertensive in the ED with BPs 170s/90s - was on anti-hypertensives prior to last admission at which time they were held due to hemorrhagic/hypovolemic shock - Plan for dieresis as per above (5) Diabetes mellitus type 2, controlled: Plan: - hold glipizide - SSI while inpatient Plan Diet: NPO pending paracentesis Code: Full Dispo: Med Tele VTE Prophylaxis; SCD, hold on chemical pending paracentesis Admission and Anticipated Discharge Date Admission Date: November 21, 2024 Subjective No events overnight. Pt resting comfortably in bed. Review of Systems Review of Systems: CONST: Negative for fever, body aches and chills. HENT: Negative for neck pain/stiffness, headache, congestion, sore throat, swelling. EYES: Negative for discharge/pain or vision changes. RESP: Negative for cough/hemoptysis and shortness of breath. CV: Negative chest pain, difficulty breathing, palpitations. ABD: Negative pain, nausea, vomiting. : Negative increase frequency, dysuria, blood in urine or stool. MUSC: Negative for muscle aches, edema. SKIN: Negative rash, lesions/sores. NEURO: Negative headache, dizziness, weakness. Physical Exam Physical Exam: GENERAL APPEARANCE NAD, activity normal for age, well developed/ well nourished, no cyanosis, pallor, or diaphoresis. EYES lids/conjunctiva normal. EARS/NOSE/THROAT Mucous membranes moist, nares normal, lips/teeth normal uvula midline without oral pharyngeal erythema, exudate or swelling TMs normal bilaterally. No lymphangitis/lymphedema. HEAD/NECK normocephalic atraumatic, no facial trauma, neck is supple. RESPIRATORY respiratory effort normal, speaks in full sentences, no tripod position, no accessory muscle use. Lungs clear to auscultation without rhonchi, wheezes, rales CARDIAC Regular rate and rhythm, no edema. ABDOMINAL Soft, ND/NT. No evidence of fluid wave. No pulsatile masses on exam, rebound tenderness, White sign or pain over Mcburney's point. MUSCLES/EXTREMITIES No abnormal range of motion, no swelling. SKIN Warm, pink and dry. No rashes, dermatoses, petechiae or lesions. NEUROLOGICAL Speech is clear and appropriate. Normal level of consciousness. Gait and coordination are normal. 5/5 strength in all extremities. PSYCH Normal mood and affect. Judgement/competence is appropriate Results & Data Results & Data Vital Signs (Past 12 Hours) Vital Signs Temp Pulse Pulse Resp BP Pulse Ox O2 Del Method 11/22/24 07:44 36.9 C 70 14 160/91 H 97 Room Air 11/22/24 07:25 70 11/22/24 03:59 37 C 87 20 159/78 H 99 Room Air 11/21/24 22:15 Room Air 11/21/24 22:15 36.8 C 72 18 178/95 H 100 Room Air PG Care Time/CCT Total # of Minutes Spent Total Time Spent with Patient: Total time spent is greater than 50% in coordination of care (as documented) at patient's floor/unit and/or counseling patient: Coding Level of Care Code 89811 SUB INP/OBS CARE 2/35MIN Diagnoses Alcoholic cirrhosis of liver with ascites K70.31 Hepatic cirrhosis type: alcoholic cirrhosis Ascites presence: with ascites Leg edema R60.0 Esophageal varices determined by endoscopy I85.00 HTN (hypertension) I10 Diabetes mellitus type 2, controlled E11.9 (1) Cirrhosis Hepatic cirrhosis type: alcoholic cirrhosis Ascites presence: with ascites Qualified Code(s): K70.31 - Alcoholic cirrhosis of liver with ascites
[2024-11-22] MEDS: FUROSEMIDE 40 MG/4 ML VIAL IV SCH (09:53)
[2024-11-22 10:04] LABS: Albumin Globulin Ratio 1.2 (0.9-2); Albumin Level 3.3 gm/dl (3.4-5.0); BUN Creatinine Ratio 16.1 (10-20); Bilirubin,Total 1.2 mg/dl (0.2-1.0); Calcium 7.9 mg/dl (8.6-10.3); Creatinine Clr Calc Pharmacy 99.1 ml/min; Globulin 2.7 gm/dl (2.5-4.0); Potassium 3.4 mmol/L (3.5-5.1)
[2024-11-22 10:16] LABS: INR 1.1 (0.9-1.1); Prothrombin Time 11.9 Seconds (9.0-12.0)
[2024-11-22 10:42] LABS: Hep B Surface Ag with confirm Negative (Negative)
[2024-11-22 10:47] LABS: Hep C Ab Rflx HepCQuant RNA Negative (Negative)
--- NOTE | 2024-11-22 13:15 | Gastrointestinal Consultation ---
Date of Consultation November 22, 2024 Assessment & Plan (1) Cirrhosis: -Check acute infectious hepatitis panel; do suspect MASH but he notes a distant history of alcohol consumption as well -Sent out autoimmune cirrhosis work-up as well -Consider echocardiogram -MELD labs daily -Primary team has ordered an ultrasound guided paracentesis with fluid studies, but may also need to update CT liver imaging -AFP sent out -2 gm sodium restricted diet -Eventually will need diuretics -No evidence of HE at present; avoid constipation. If concerns for HE arise, would consider implementing Xifaxan while inpatient. -Continue Nadolol -Continue Protonix 40 mg BID; up to date with variceal surveillance with recent treatment on 11/09/24 -Currently MELD is only 8, however given recent ICU stay for variceal bleeding and current admission with ascites, should consider establishing with outpatient pot sander; Patient had been following with [facility], so it seems logical to arrange him with [facility]. If preferring local care and insurance permits, could also consider Dr. Ya, pot sander at [facility]. Supervising Physician Co-Signing Physician Notes 64-year-old gentleman with recent variceal bleed. Now has what appears of new onset ascites. May be related to fluid resuscitation during his stay or increased portal pressures post banding. Should evaluate his portal and hepatic vein flow. Patient is on no salt restriction. Will start 2 g sodium diet. He had a 3 L paracentesis today. Analysis pending. He does not clinically have SBP. Patient states his cirrhosis is from fatty liver. His alcohol intake history does not appear to be sufficient to cause cirrhosis. He is managed to [facility]. Potential discharge 1 to 2 days on diuretics and salt restriction. History of Present Illness Reason for Consultation: Ascites Requesting Physician: hospitalist Attending Physician: Channing Herr MD History of Present Illness Patient is a 64 yo male with liver cirrhosis who follows with [facility]. He was recently hospitalized for a variceal bleed that was banded. He was discharged home. He returned to the hospital with weight gain and increased lower extremity edema and ascites. He does not appear to have a history of ascites. He is not on diuretics. He notes 20 lb weight gain. He is prescribed Nadolol for his varices as well as Protonix BID. Platelets 125. H/H 8.1/26.7. BUN/Cr 14/0.87. INR 1.1. T bili 1.2. No abdominal imaging obtained in ED this admission. It does appear that the hospitalist team has ordered a paracentesis with fluid studies. He had a portal vein US on 11/09/24 that was unremarkable for acute issues. Last CT liver in September. Allergies Allergy/AdvReac Type Severity Reaction Status Date / Time clarithromycin Allergy Mild NAUSEA Verified 11/21/24 12:49 VOMITING metformin AdvReac Mild Headache Verified 11/21/24 12:49 Home Medications Medication Instructions Recorded Confirmed Type glipizide 5 mg tablet, extended 5 mg PO QAM 11/21/24 11/21/24 History release 24 hr nadolol 40 mg tablet 20 mg PO QAM 11/21/24 11/21/24 History pantoprazole 40 mg tablet,delayed 40 mg PO Q12 11/21/24 11/21/24 History release tamsulosin 0.4 mg capsule 0.4 mg PO HS 11/21/24 11/21/24 History Patient History Medical History Gallstones URI (upper respiratory infection) Testicle trouble Nocturia BMI 39.0-39.9,adult Financial difficulty Normal colonoscopy (~2019) Surgical History H/O colonoscopy Family History Mother Hypertension Liver disease Diabetes Aunt Breast cancer Diabetes Father Prostate cancer Myocardial infarction Social History Smoking Status: Never smoker Tobacco Type: Smokeless Tobacco (Dip or Chew) Second Hand Exposure: No; Do You Dip or Chew Tobacco: Yes; Hx Alcohol Use: Yes Alcohol type: beer Alcohol Intake Frequency: 4 or More x per/Week Hx Substance Use: No Preferred Language: Portuguese Communication Ability: Effective Communication Ability Comment: Patient is intubated and sedated Pot Sander Required: No Beliefs That Will Affect Care: None marital status: Current Living Situation: Family Current Living Situation Comment: son lives with patient current occupational status: employed current occupation: [employer] How many Children do You have: 3 Feels Safe at Home: Yes Childhood Exposure to Second-Hand Smoke: Yes Diet: regular caffeine: Yes during the past year weight has: remained stable Dental Care, Regularly: Yes Physical Activity Frequency: Does not Exercise Seatbelt Use: always Sunscreen Use: Yes Assistive Devices: None Review of Systems Constitutional: no fever and no chills Gastrointestinal: + problem reported (abdominal distention ); no abdominal pain, no hematemesis, no diarrhea/loose stools, no blood in stools and no melena Physical Exam Constitutional: well developed Respiratory: normal respiratory effort Cardiovascular: Rate/Rhythm: regular rate Extremities: + edema Gastrointestinal (Abdomen): ascites Psychiatric: Orientation: alert and oriented x 3 Results & Data Vital Signs (Past 12 Hours) Vital Signs Temp Pulse Pulse Resp BP Pulse Ox O2 Del Method 11/22/24 11:26 37.3 C 66 20 143/80 H 98 Room Air 11/22/24 07:44 36.9 C 70 14 160/91 H 97 Room Air 11/22/24 07:25 70 11/22/24 03:59 37 C 87 20 159/78 H 99 Room Air PG Care Time/CCT Total # of Minutes Spent Total Time Spent with Patient: Total time spent is greater than 50% in coordination of care (as documented) at patient's floor/unit and/or counseling patient: Coding Level of Care Code 66747 OFFICE CONSULT LVL Diagnoses Alcoholic cirrhosis of liver with ascites K70.31 Ascites presence: with ascites Hepatic cirrhosis type: alcoholic cirrhosis (1) Cirrhosis Ascites presence: with ascites Hepatic cirrhosis type: alcoholic cirrhosis Qualified Code(s): K70.31 - Alcoholic cirrhosis of liver with ascites
--- NOTE | 2024-11-22 14:47 | Electrocardiogram Report ---
Test Reason : Blood Pressure : */* mmHG Vent. Rate : 77 BPM Atrial Rate : 77 BPM P-R Int : 168 ms QRS Dur : 126 ms QT Int : 420 ms P-R-T Axes : 40 -48 90 degrees QTcB Int : 475 ms Normal sinus rhythm Left bundle branch block Abnormal ECG When compared with ECG of 12-Nov-2024 13:01, No significant change was found Confirmed by Milton Brown ([id number]) on 11/22/2024 2:47:10 PM Referred By: Confirmed By: Milton Brown
--- NOTE | 2024-11-22 15:33 | Ultrasound Report ---
ULTRASOUND-GUIDED PARACENTESIS CLINICAL HISTORY: Ascites PROCEDURE: Procedure and risks were explained. Informed consent was obtained. A final timeout was com pleted. The abdomen was prepped and draped in sterile fashion. 1% lidocaine was utilized for skin ane sthesia. Utilizing ultrasound guidance, a 5 Romanian safety centesis catheter was advanced into the left lower q uadrant pocket of ascites. Ultrasound images were obtained. A total of 3 L of ascites fluid was remov ed with 1 L sent to the lab. The catheter was removed and Band-Aid applied. The patient tolerated the procedure well. Vital signs will be monitored postprocedure. IMPRESSION: Ultrasound-guided paracentesis as above. Performed, dictated, and signed by Zafar Sotelo PA-C; to be co-signed by Dr. Jase Forrest. Electronically signed by: Jase Forrest M.D. 11/22/2024 3:59 PM
[2024-11-22 16:25] LABS: Hepatitis B Surface Antibody Immune
[2024-11-22 16:40] LABS: Albumin Peritoneal Fluid < 1.5 gm/dl; Amylase Peritoneal Fluid 16 U/L; Glucose Peritoneal Fluid 146 mg/dl; LDH Peritoneal Fluid 36 U/L; Lipase Peritoneal Fluid 30 U/L; Total Protein Peritoneal Fluid < 3.0 gm/dl
[2024-11-22 18:47] LABS: Appearance Peritoneal Fluid Clear; Color Peritoneal Fluid Pale Yellow; Lymphocytes, Fluid 22 %; Mono,Macrophage,Mesothelial 71 %; Neutrophils, Fluid 7 %; RBC Peritoneal Fluid Auto < 2000 /uL; WBC Peritoneal Fluid Auto 147 /ul (0-300)
--- NOTE | 2024-11-22 20:34 | Ultrasound Report ---
Exam(s): US OTHER US duplex portal hepatic veins EXAM: US Other - Us Duplex Portal Hepatic Veins CLINICAL HISTORY: Reason for exam: CIRRHOSIS. TECHNIQUE: Real-time ultrasound of the hepatic veins and portal veins with image documentation. COMPARISON: Duplex ultrasound 11/09/2024. FINDINGS: Hepatopetal flow within the portal vein. Hepatic veins are patent. Hepatic arteries patent. Resistive index 0.7 and velocity 60 cm/s. IMPRESSION: 1. Hepatopetal flow within the portal vein. 2. Hepatic veins are patent. Electronically signed by: Meir Espinosa MD 11/22/24 20:33 PM
[2024-11-23 08:45] LABS: Hematocrit (blood only) 28.1 % (42.0-52.0); Hemoglobin 8.6 g/dl (14.0-18.0); Mean Corpuscular Hemoglobin 25.6 pg (25.0-34.0); Mean Corpuscular Hgb Conc 30.6 g/dL (32.0-36.0); Mean Corpuscular Volume 83.6 fL (80.0-100.0); Mean Platelet Volume 9.5 fL (9.4-12.4); Platelet Count 124 K/uL (130-400); RDW Coefficient of Variation 16.1 % (11.5-14.5); RDW Standard Deviation 48.8 fL (36.4-46.3); Red Blood Count 3.36 M/uL (4.70-6.10); White Blood Count 3.19 K/ul (4.8-10.8)
[2024-11-23 08:57] LABS: BUN Creatinine Ratio 17.4 (10-20); Calcium 8.1 mg/dl (8.6-10.3); Creatinine Clr Calc Pharmacy 93.9 ml/min; Potassium 3.7 mmol/L (3.5-5.1)
[2024-11-23] MEDS: POTASSIUM CHLORIDE / WTR 10 MEQ/100 ML PLCT IV SCH (09:12)
--- NOTE | 2024-11-23 09:30 | Hospitalist Progress Note ---
Date of Service November 23, 2024 Assessment & Plan (1) Cirrhosis: Plan: -s/p paracentesis- 2-3L removed -pt feeling better -continue with 40mg IV Lasix daily, 25mg spironolactone -GI consult appreciated -will get echo and CT a/p (2) Leg edema: Plan: - in the setting of decompensated cirrhosis - plan for dieresis as per above (3) Esophageal varices determined by endoscopy: Plan: - Hgb is stable from 2/5 and no signs of further bleeding - continue with PPI BID and nadolol (4) HTN (hypertension): Plan: - mildly hypertensive in the ED with BPs 170s/90s - was on anti-hypertensives prior to last admission at which time they were held due to hemorrhagic/hypovolemic shock - Plan for diuresis as per above (5) Diabetes mellitus type 2, controlled: Plan: - hold glipizide - SSI while inpatient Plan Diet: NPO pending paracentesis Code: Full Dispo: Med Tele VTE Prophylaxis; SCD, hold on chemical pending paracentesis Admission and Anticipated Discharge Date Admission Date: November 21, 2024 Subjective No events overnight. Pt resting comfortably in bed. Review of Systems Review of Systems: CONST: Negative for fever, body aches and chills. HENT: Negative for neck pain/stiffness, headache, congestion, sore throat, swelling. EYES: Negative for discharge/pain or vision changes. RESP: Negative for cough/hemoptysis and shortness of breath. CV: Negative chest pain, difficulty breathing, palpitations. ABD: Negative pain, nausea, vomiting. : Negative increase frequency, dysuria, blood in urine or stool. MUSC: Negative for muscle aches, edema. SKIN: Negative rash, lesions/sores. NEURO: Negative headache, dizziness, weakness. Physical Exam Physical Exam: GENERAL APPEARANCE NAD, activity normal for age, well developed/ well nourished, no cyanosis, pallor, or diaphoresis. EYES lids/conjunctiva normal. EARS/NOSE/THROAT Mucous membranes moist, nares normal, lips/teeth normal uvula midline without oral pharyngeal erythema, exudate or swelling TMs normal bilaterally. No lymphangitis/lymphedema. HEAD/NECK normocephalic atraumatic, no facial trauma, neck is supple. RESPIRATORY respiratory effort normal, speaks in full sentences, no tripod position, no accessory muscle use. Lungs clear to auscultation without rhonchi, wheezes, rales CARDIAC Regular rate and rhythm, no edema. ABDOMINAL Soft, ND/NT. No evidence of fluid wave. No pulsatile masses on exam, rebound tenderness, White sign or pain over Mcburney's point. MUSCLES/EXTREMITIES No abnormal range of motion, no swelling. SKIN Warm, pink and dry. No rashes, dermatoses, petechiae or lesions. NEUROLOGICAL Speech is clear and appropriate. Normal level of consciousness. Gait and coordination are normal. 5/5 strength in all extremities. PSYCH Normal mood and affect. Judgement/competence is appropriate Results & Data Results & Data Vital Signs (Past 12 Hours) Vital Signs Temp Pulse Pulse Resp BP Pulse Ox O2 Del Method 11/23/24 07:43 36.8 C 87 20 179/79 H 97 Room Air 11/23/24 07:00 57 L 11/23/24 04:10 36.7 C 65 18 153/82 H 98 Room Air 11/22/24 22:32 37.5 C 68 18 141/92 H 99 Room Air 11/22/24 21:52 69 PG Care Time/CCT Total # of Minutes Spent Total Time Spent with Patient: Total time spent is greater than 50% in coordination of care (as documented) at patient's floor/unit and/or counseling patient: Coding Level of Care Code 47339 SUB INP/OBS CARE 2/35MIN Diagnoses Alcoholic cirrhosis of liver with ascites K70.31 Hepatic cirrhosis type: alcoholic cirrhosis Ascites presence: with ascites Leg edema R60.0 Esophageal varices determined by endoscopy I85.00 HTN (hypertension) I10 Diabetes mellitus type 2, controlled E11.9 (1) Cirrhosis Hepatic cirrhosis type: alcoholic cirrhosis Ascites presence: with ascites Qualified Code(s): K70.31 - Alcoholic cirrhosis of liver with ascites
--- NOTE | 2024-11-23 10:21 | CT Scan Report ---
ABDOMEN AND PELVIS CT WITHOUT CONTRAST CT DOSE: 1555.45 mGy.cm HISTORY: Follow-up study in a patient with chronic liver disease cirrhosis TECHNIQUE: Multiaxial CT images of the abdomen and pelvis were performed without contrast. A dose lo wering technique was utilized adhering to the principles of ALARA. COMPARISON STUDY: 09/11/2024 FINDINGS: Cardiomegaly with decreased attenuation of the cardiac blood pool compatible with anemia. M ild bibasilar atelectasis. No pneumatosis or pneumoperitoneum. Spleen is enlarged, 22 cm in length. Cirrhotic liver is suboptimally evaluated without contrast. Poss ible 1.6 cm posterior right hepatic lobe lesion on image 26 series 2 with possible 9 mm left hepatic lobe lesion on image 21 series 2. The right hepatic lobe focus was not clearly seen on the prior stud y. Unremarkable pancreas and adrenal glands. Mildly contracted gallbladder with cholelithiasis. There are a few renal cysts again noted bilaterally. 4 mm nonobstructing calculus of the interpolar l eft kidney. Mild left greater than right hydroureteronephrosis. Prostatomegaly. Partially decompresse d MR with mild wall thickening. No ureteral calculi. Fat filled inguinal hernias are noted, moderate on the right. No abdominal aortic aneurysm or lymphadenopathy. Small to moderate abdominal pelvic asc ites. Abdominal varicosities with distal esophageal wall thickening. No bowel obstruction. There is a partial distention or wall thickening noted within several loops of large and small bowel. No CT cammy dence of acute appendicitis. Small fat filled inguinal hernia. Anasarca. No acute fracture. IMPRESSION: 1. Cirrhosis with stigmata of portal venous hypertension including splenomegaly with abdominal varico sities. Increased amount of ascites compared to the 09/11/2024 study. 2. 1.6 cm ill-defined subcapsular hypodensity of the posterior right hepatic lobe may represent an in determinate lesion. Attention at follow-up recommended. 3. Left greater than right bilateral hydroureteronephrosis. No ureteral calculi. 4. Cholelithiasis. 5. Left nephrolithiasis. 6. Additional findings as above. ACT 112: Negative or not required by law. The above report was generated using voice recognition software. It may contain grammatical, syntax o r spelling errors. Electronically signed by: Jase Forrest M.D. 11/23/2024 10:19 AM
[2024-11-23 11:17] VITALS: BP 161/76; RESP 18; TEMP 98.1; O2SAT 100
--- NOTE | 2024-11-23 11:59 | XCELERA ---
[id number]
--- NOTE | 2024-11-23 14:51 | Gastroenterology Progress Note ---
Date of Service November 23, 2024 Assessment & Plan (1) Cirrhosis: Plan: Suspected fatty liver etiology -Agree with diuretic use. Would plan for Lasix & Aldactone with ideal ratio of 40:100 mg pending kidney function. -Follow MELD score, kidney function -Acute hepatitis panel ordered -Sent out autoimmune cirrhosis work-up as well -MELD labs daily -AFP sent out -2 gm sodium restricted diet -No evidence of HE at present; avoid constipation. If concerns for HE arise, would consider implementing Xifaxan while inpatient. -Continue Nadolol 20 mg daily -Continue Protonix 40 mg BID; up to date with variceal surveillance with recent treatment on 11/09/24 -Currently MELD is only 8, however given recent ICU stay for variceal bleeding and current admission with ascites, should consider establishing with outpatient jack frame tender; Patient had been following with [facility], so it seems logical to arrange him with [facility]. If preferring local care and insurance permits, could also consider Dr. Ya, jack frame tender at [facility]. Admission and Anticipated Discharge Date Admission Date: November 21, 2024 Subjective Patient is a 64 yo male with cirrhosis. He underwent a paracentesis on 11/22/2024. No evidence of SBP. He notes he is feeling better. Hospitalists have transitioned patient to po diuretics. He denies acute concerns at the present time. CT abdomen performed without contrast was unremarkable. US doppler portal vein normal. MELD 8 today. Review of Systems Gastrointestinal: no abdominal pain, no nausea, no vomiting, no coffee ground emesis, no blood in stools and no melena Physical Exam Constitutional: well developed Respiratory: normal respiratory effort Cardiovascular: Rate/Rhythm: regular rate Gastrointestinal (Abdomen): normal bowel sounds, soft, nontender, no hepatosplenomegaly Psychiatric: Orientation: alert and oriented x 3 Results & Data Results & Data Vital Signs (Past 12 Hours) Vital Signs Temp Pulse Pulse Resp BP Pulse Ox O2 Del Method 11/23/24 11:16 36.7 C 71 18 161/76 H 100 Room Air 11/23/24 08:00 Room Air 11/23/24 07:43 36.8 C 87 20 179/79 H 97 Room Air 11/23/24 07:00 57 L 11/23/24 04:10 36.7 C 65 18 153/82 H 98 Room Air PG Care Time/CCT Total # of Minutes Spent Total Time Spent with Patient: Total time spent is greater than 50% in coordination of care (as documented) at patient's floor/unit and/or counseling patient: Coding Level of Care Code 36603 SUB INP/OBS CARE 3/50MIN Diagnoses Alcoholic cirrhosis of liver with ascites K70.31 Ascites presence: with ascites Hepatic cirrhosis type: alcoholic cirrhosis (1) Cirrhosis Ascites presence: with ascites Hepatic cirrhosis type: alcoholic cirrhosis Qualified Code(s): K70.31 - Alcoholic cirrhosis of liver with ascites
[2024-11-23 16:22] VITALS: PULSE 71
--- NOTE | 2024-11-23 16:25 | Discharge Summary ---
Discharge Summary Date of Service November 23, 2024 Principal Dx & Hospital Course #1 = Principal Diagnosis (1) Cirrhosis: -s/p paracentesis- 2-3L removed -pt feeling better -continue with 40mg IV Lasix daily, 25mg spironolactone -GI consult appreciated -will get echo and CT a/p (2) Leg edema: - in the setting of decompensated cirrhosis - plan for dieresis as per above (3) Esophageal varices determined by endoscopy: - Hgb is stable from 11/14 and no signs of further bleeding - continue with PPI BID and nadolol (4) HTN (hypertension): - mildly hypertensive in the ED with BPs 170s/90s - was on anti-hypertensives prior to last admission at which time they were held due to hemorrhagic/hypovolemic shock - Plan for diuresis as per above (5) Diabetes mellitus type 2, controlled: - hold glipizide - SSI while inpatient Plan Diet: NPO pending paracentesis Code: Full Dispo: Med Tele VTE Prophylaxis; SCD, hold on chemical pending paracentesis Admission HPI Per Admitting Provider 64 year old male with a past medical history of T2DM, HTN, ALICE, BLACKMAN, cirrhosis presenting with concern for weight gained and increased LE edema and ascites. Was recently admitted 11/09-11/14 with an upper GI secondary to esophageal varices. Varices were successfully banded. During that admission he required ICU admission as was intubated and on pressor support in the setting of hemorrhagic/hypovolemic shock. Since discharge he has noticed an increased weight gain on about 20lbs. Also notes increased swelling in both his abdomen and LE B/L. Notes that he has been on triamterene-HCTZ, which was held on d/c. Does not some dyspnea especially when laying flat. Denies chest pain. ED course significant for: Hbg= 9 (stable from 11/14), PT/INR, CMP, Trop wnl. UA unremarkable. CXR without pulmonary edema, trace left pleural effusion. S/p 20mg IV Lasix Discharge Exam GENERAL APPEARANCE NAD, activity normal for age, well developed/ well nourished, no cyanosis, pallor, or diaphoresis. EYES lids/conjunctiva normal. EARS/NOSE/THROAT Mucous membranes moist, nares normal, lips/teeth normal uvula midline without oral pharyngeal erythema, exudate or swelling TMs normal bilaterally. No lymphangitis/lymphedema. HEAD/NECK normocephalic atraumatic, no facial trauma, neck is supple. RESPIRATORY respiratory effort normal, speaks in full sentences, no tripod position, no accessory muscle use. Lungs clear to auscultation without rhonchi, wheezes, rales CARDIAC Regular rate and rhythm, no edema. ABDOMINAL Soft, ND/NT. No evidence of fluid wave. No pulsatile masses on exam, rebound tenderness, White sign or pain over Mcburney's point. MUSCLES/EXTREMITIES No abnormal range of motion, no swelling. SKIN Warm, pink and dry. No rashes, dermatoses, petechiae or lesions. NEUROLOGICAL Speech is clear and appropriate. Normal level of consciousness. Gait and coordination are normal. 5/5 strength in all extremities. PSYCH Normal mood and affect. Judgement/competence is appropriate Discharge Plan Discharge Items Patient Disposition: Home - Self-Care Reason For Visit: HYPERVOLEMIA Discharge Diagnosis: cirrhosis Activity: Resume your previous activity Non-emergency contact: Primary Care Provider Call non-emergency contact if: you have any medication questions Follow-up/Referrals: Logan Reza DO [Primary Care Provider] - Diet: Carb Consistent or DM2 Addtl Attending Provider Instructions: Follow up with GI as out patient in 2 weeks. Pending Studies at Discharge: No Stand-Alone Forms: [facility] [employer], Smoking Cessation Medications and DC Order Prescriptions: New spironolactone 25 mg Tablet 25 mg PO QAM Qty: 30 0RF furosemide [Lasix] 40 mg tablet 40 mg PO DAILY Qty: 30 0RF Continued glipizide 5 mg tablet extended release 24hr 5 mg PO QAM tamsulosin 0.4 mg capsule 0.4 mg PO HS nadolol 40 mg tablet 20 mg PO QAM Rx Instructions: 1/2 TABLET DOSE pantoprazole 40 mg tablet,delayed release (DR/EC) 40 mg PO Q12 Discharge Orders: Discharge Order (Routine); Ordered 11/23/24 Ordered By: Channing Hart/Other Patient Handouts: Paracentesis Dc, Cirrhosis of Liver Dc, ED Ascites Admission Data Admit Date/Time: 11/21/24 19:51 Attending Provider: Channing Herr Admit Provider: Kristen Pichardo Primary Care Provider: Logan Reza Other Providers: Wilmar Wilson; Tico Bhandari; [facility] F[facility] Other Interventions: Discharge Summary Assessment (RN) Last Done: 11/23/24 16:20 Hospital Stay Data Consultations 11/21/24 19:59 ED Decision to Admit Stat 11/22/24 11:55 Consult Gastroenterology Routine Diagnostic Imagining Performed 11/22/24 IR paracentesis abd w/img US Routine 11/22/24 15:13 US duplex portal hepatic veins Routine 11/23/24 07:37 CT Abdomen and Pelvis [CT abd pelvis wo con] Routine Pending Results Patient Have Any Pending Studies at Discharge: No Discharge Instructions Given to Patient (Per Discharging Provider) Follow up with GI as out patient in 2 weeks. Total Time Total Time Spent Total Time Spent (In Minutes): 50 Coding Level of Care Code 87414 INP/OBS DISCH >30 MIN Diagnoses Alcoholic cirrhosis of liver with ascites K70.31 Hepatic cirrhosis type: alcoholic cirrhosis Ascites presence: with ascites Leg edema R60.0 Esophageal varices determined by endoscopy I85.00 HTN (hypertension) I10 Diabetes mellitus type 2, controlled E11.9
[2024-11-24 12:48] LABS: Hepatitis A Antibody IgM NON-REACTIVE (NON-REACTIVE); Hepatitis B Core Antibody IgM NON-REACTIVE (NON-REACTIVE)
[2024-11-26 15:51] LABS: AFP Tumor Marker Serum 1.5 ng/mL (<6.1); Anti Mitochondrial Antibody NEGATIVE (NEGATIVE); Anti Nuclear Antibody Screen NEGATIVE (NEGATIVE); Hepatitis A Antibody Total REACTIVE (NON-REACTIVE)
[2024-11-27 08:25] LABS: Hepatitis A Antibody IgM NON-REACTIVE (NON-REACTIVE)
== END 2024-11-23 17:07 | disposition home health service (06) | DRG 433 ==
LOC: SUATTDRO → ED 13:47 → 2N 19:51 → SUATTDRO 19:51 → 2N 11-22 02:18